=== PATIENT | female | born 1980 | race Caucasian/White ===

== ENCOUNTER 2019-03-06 21:44 | Emergency (ER) | payer SELFPAY ==
[~2019-03-06] VITALS: Ht 182.9 cm; Wt 108.9 kg
--- NOTE | 2019-03-06 22:43 | ED GU-Female ---
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 Today, her bleeding picked up significantly. She states that she is filling 1 pad an hour and passing large baseball size clots. She describes it as being bright red. Nursing Sepsis Screen: No Definite Risk Source: patient History of Present Illness Date Seen by Provider: Mar 06, 2019 Time Seen by Provider: 22:43 Initial Comments 38-year-old female presenting with severe pelvic pain and irregular vaginal bleeding. She started her period 3 days ago and has had increasing vaginal bleeding with heavy menstrual bleeding and clots. She also has pain that is started download primarily on the left side. It is sharp pain. It feels more severe than her regular menstrual cycle cramps. She also had her period started approximately a week to week and half early this time. She states that her January period was visual manager than usual. She has had bleeding to the point that she' s used an entire box of heavy duty tampons and box of pads in the last 24-36 hours. She denies having any chills but states she has had fever off and on. She has been getting dizzy and lightheaded especially when she stands up. She denies any change in her bowels or bladder. She has had nausea when she has severe pain. She denies having bleeding or clots like this previously. She has not had ovarian cysts or been told she had fibroids in the past. She has had normal pap smears. Her mother had to have a hysterectomy at an early age due to ovarian cysts and heavy bleeding. She has had prior C-sections and a tubal ligation. Allergies and Home Medications Allergies Coded Allergies: azithromycin (Verified Allergy, Unknown, 03/06/19) fexofenadine (Verified Allergy, Unknown, 03/06/19) Patient Home Medication List Home Medication List Reviewed: Yes Review of Systems Review of Systems Constitutional: see HPI EENTM: no symptoms reported Respiratory: no symptoms reported Cardiovascular: no symptoms reported Gastrointestinal: see HPI Genitourinary: see HPI Musculoskeletal: no symptoms reported Skin: no symptoms reported Psychiatric/Neurological: No Symptoms Reported Past Gnknakp-Objuot-Kmzxbn Hx Past Med/Social Hx: Reviewed Nursing Past Med/Soc Hx Patient Social History Alcohol Use: Occasionally Uses Recreational Drug Use: No Smoking Status: Never a Smoker 2nd Hand Smoke Exposure: No Recent Foreign Travel: No Contact w/Someone Who Travel: No Recent Infectious Disease Expo: No Recent Hopitalizations: No Physical Abuse: No Sexual Abuse: No Mistreated: No Fear: No Immunizations Up To Date Tetanus Booster (TDap): Unknown Date of Influenza Vaccine: Aug 10, 2018 Seasonal Allergies Seasonal Allergies: No Past Medical History Surgeries: Yes (Aneurysm repair in the neck) Section, Tubal Ligation Respiratory: No Cardiac: No Neurological: No : No Last 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 0oz. [id number]; BMI Method:Stated General Appearance: WD/WN, no apparent distress HEENT: pharynx normal Neck: non-tender, supple Cardiovascular: normal peripheral pulses, regular rate, rhythm Respiratory: chest non-tender, lungs clear, normal breath sounds, no respiratory distress, no accessory muscle use Gastrointestinal: normal bowel sounds, soft, no pulsatile mass, tenderness ( over suprapubic area in pelvis as well as LLQ and RLQ. Pain worse in LLQ area) Rectal: deferred Pelvic: normal external exam, tender adnexa (left greater than right. ), vaginal bleeding (bright red blood with mucus present at the os and vaginal vault but no active bleeding coming from the os during the exam. ) Back: normal inspection, no CVA tenderness, no vertebral tenderness Extremities: normal range of motion, non-tender, normal inspection, normal capillary refill Neurologic/Psychiatric: alert, normal mood/affect, oriented x 3 Skin: normal color, warm/dry Progress/Results/Core Measures Suspected Sepsis Recent Fever Within 48 Hours: No Infection Criteria Present: None New/Unexplained Altered Menta: No Sepsis Screen: No Definite Risk SIRS Temperature:98.8 Pulse: 87 Respiratory Rate: 22 Laboratory Tests 03/06/19 00:05: White Blood Count 6.3 Blood Pressure 107 /71 Mean: 83 Laboratory Tests 03/06/19 00:05: Creatinine 0.84, Platelet Count 219, Total Bilirubin 0.2 Results/Orders Lab Results Laboratory Tests Test 03/06/19 00:05 Range/Units White Blood Count 6.3 4.3-11.0 10^3/uL Red Blood Count 4.19 L 4.35-5.85 10^6/uL Hemoglobin 10.3 L 11.5-16.0 G/DL Hematocrit 34 L 35-52 % Mean Corpuscular Volume 81 80-99 FL Mean Corpuscular Hemoglobin 25 25-34 PG Mean Corpuscular Hemoglobin Concent 30 L 32-36 G/DL Red Cell Distribution Width 15.1 H 10.0-14.5 % Platelet Count 219 130-400 10^3/uL Mean Platelet Volume 10.7 H 7.4-10.4 FL Neutrophils (%) (Auto) 70 42-75 % Lymphocytes (%) (Auto) 19 12-44 % Monocytes (%) (Auto) 7 0-12 % Eosinophils (%) (Auto) 3 0-10 % Basophils (%) (Auto) 1 0-10 % Neutrophils # (Auto) 4.4 1.8-7.8 X 10^3 Lymphocytes # (Auto) 1.2 1.0-4.0 X 10^3 Monocytes # (Auto) 0.5 0.0-1.0 X 10^3 Eosinophils # (Auto) 0.2 0.0-0.3 10^3/uL Basophils # (Auto) 0.0 0.0-0.1 10^3/uL Urine Color YELLOW Urine Clarity SLIGHTLY CLOUDY Urine pH 6.5 5-9 Urine Specific Madelia 1.025 H 1.016-1.022 Urine Protein NEGATIVE NEGATIVE Urine Glucose (UA) NEGATIVE NEGATIVE Urine Ketones NEGATIVE NEGATIVE Urine Nitrite NEGATIVE NEGATIVE Urine Bilirubin NEGATIVE NEGATIVE Urine Urobilinogen 0.2 NORMAL MG/DL Urine Leukocyte Esterase NEGATIVE NEGATIVE Urine RBC (Auto) 2+ H NEGATIVE Urine RBC 0-2 /HPF Urine WBC 0-2 /HPF Urine Squamous Epithelial Cells 0-2 /HPF Urine Crystals NONE /LPF Urine Bacteria FEW H /HPF Urine Casts NONE /LPF Urine Mucus SMALL H /LPF Urine Culture Indicated NO Sodium Level 139 135-145 MMOL/L Potassium Level 4.3 3.6-5.0 MMOL/L Chloride Level 101 98-107 MMOL/L Carbon Dioxide Level 23 21-32 MMOL/L Anion Gap 5-14 MMOL/L Blood Urea Nitrogen 18 7-18 MG/DL Creatinine 0.84 0.60-1.30 MG/DL Estimat Glomerular Filtration Rate > 60 BUN/Creatinine Ratio 21 Glucose Level 102 70-105 MG/DL Calcium Level 8.9 8.5-10.1 MG/DL Corrected Calcium 8.8 8.5-10.1 MG/DL Total Bilirubin 0.2 0.1-1.0 MG/DL Aspartate Amino Transf (AST/SGOT) 15 5-34 U/L Alanine Aminotransferase (ALT/SGPT) 14 0-55 U/L Alkaline Phosphatase 61 40-136 U/L Total Protein 7.4 6.4-8.2 GM/DL Albumin 4.1 3.2-4.5 GM/DL Lipase 18 8-78 U/L Human Chorionic Gonadotropin, Quant < 5 <5 MIU/ML My Orders Orders - PINKY PHILLIPS MD Comprehensive Metabolic Panel (03/06/19 23:07) Lipase (03/06/19 23:07) Ua Culture If Indicated (03/06/19 23:07) Ed Iv/Invasive Line Start (03/06/19 23:07) Cbc With Automated Diff (03/06/19 23:07) Hcg,Quantitative (03/06/19 23:07) Ketorolac Injection (Toradol Injection) (03/07/19 00:00) Ct Abdomen/Pelvis Wo (03/07/19 00:00) Rx-Hydrocodone/Apap 5-325 Mg (Rx-Vicodin (03/07/19 01:45) Medications Given in ED Current Medications Medications Dose Ordered Sig/Eddie Route Start Time Stop Time Status Last Admin Dose Admin Ketorolac Tromethamine 60 mg ONCE ONCE IM 03/07/19 00:00 03/07/19 00:01 DC 03/06/19 23:51 60 MG Vital Signs/I&O 03/06/19 03/07/19 21:50 01:47 Temp 98.8 98.1 Pulse 87 71 Resp 22 18 B/P (MAP) 107/71 (83) 120/60 (80) Pulse Ox 100 93 O2 Delivery Room Air Room Air Capillary Refill : Less Than 3 Seconds Blood Pressure Mean: 83 Progress Note #1: Time: 23:00 Progress Note check labs and CT scan of abdomen/pelvis to evaluate for pathology causing her pain in pelvis. Progress Note #2: Progress Note Unable to obtain IV access for fluids or CT scan with contrast. With her labs she did have normal CBC with chronic anemia and chemistry did not show any acute significant abnormality. She had no acute abnormality on CT scan to indicate her pain and heavy vaginal bleeding. Advised to check with Dr. Hensley on Friday or if worsens on Friday to go to [place] for ultrasound to further evaluate her uterus and ovaries. Sent with 4 pack of Hydrocodone for severe pain for home. Continue with Naproxen or Ibuprofen for pain/inflammation in the meantime. Diagnostic Imaging Diagonstic Imaging: CT Plain Films/CT/US/NM/MRI: abdomen, pelvis Reviewed: [facility] Impression Primary Impression: Episode of heavy vaginal bleeding Additional Impressions: Left adnexal tenderness Acute pelvic pain, female Disposition: HOME, SELF-CARE Condition: Stable Departure-Patient Inst. Decision time for Depature: 01:30 Referrals: NO,LOCAL PHYSICIAN (PCP/Family) Primary Care Physician Patient Instructions: Acute Pelvic Pain (DC), IRREGULAR VAGINAL BLEEDING Add. Discharge Instructions: Check with Dr. Hensley on Friday if having continued symptoms Return to the ER or be seen in [place] if having worsening symptoms before you get in with Dr. Hensley so you could have an ultrasound and further evaluation. Try Naproxen for pain. For severe pain you could try the Hydrocodone 1 pill every 6 hours as needed. All discharge instructions reviewed with patient and/or family. Voiced understanding. PINKY PHILLIPS MD Mar 06, 2019 22:43
[2019-03-06] MEDS ORDERED: KETOROLAC 30 MG/ML VIAL IVP ONE (23:15)
[2019-03-06] MEDS ORDERED: NS IV 1000 ML 1,000 ML IV SCH (23:15)
[2019-03-06] MEDS ORDERED: CATHETER FLUSH 10 ML SYR IV PRN (23:30)
[2019-03-06] MEDS ORDERED: HOLD METFORMIN - RECEIVED CONTRAST 20 ML VIAL IV SCH (23:30)
[2019-03-06] MEDS ORDERED: NS 50 ML (IVPB) BAG IV ONE (23:30)
[2019-03-06] MEDS ORDERED: IOHEXOL 350 MG/ML 100 ML (OMNIPAQUE 350) VIAL IV ONE (23:30)
[2019-03-07] MEDS ORDERED: KETOROLAC 60 MG/2 ML VIAL IM ONE
[2019-03-07 00:25] LABS: WHITE BLOOD COUNT 6.3 10^3/uL (4.3-11.0)
[2019-03-07 00:26] LABS: BASOPHILS % (AUTO) 1 % (0-10); EOSINOPHILS # (AUTO) 0.2 10^3/uL (0.0-0.3); EOSINOPHILS % (AUTO) 3 % (0-10); HEMATOCRIT 34 % (35-52); HEMOGLOBIN 10.3 G/DL (11.5-16.0); LYMPHOCYTES # (AUTO) 1.2 X 10^3 (1.0-4.0); LYMPHOCYTES % (AUTO) 19 % (12-44); MEAN CORPUSCULAR HEMOGLOBIN 25 PG (25-34); MEAN CORPUSCULAR HGB CONC 30 G/DL (32-36); MEAN CORPUSCULAR VOLUME 81 FL (80-99); MEAN PLATELET VOLUME 10.7 FL (7.4-10.4); MONOCYTES # (AUTO) 0.5 X 10^3 (0.0-1.0); MONOCYTES % (AUTO) 7 % (0-12); NEUTROPHILS # (AUTO) 4.4 X 10^3 (1.8-7.8); NEUTROPHILS % (AUTO) 70 % (42-75); PLATELET COUNT 219 10^3/uL (130-400); RED CELL DISTRIBUTION WIDTH 15.1 % (10.0-14.5)
[2019-03-07 00:28] LABS: CLARITY,URINE SLIGHTLY CLOUDY; COLOR,URINE YELLOW
[2019-03-07 00:29] LABS: BILIRUBIN,URINE NEGATIVE (NEGATIVE); GLUCOSE, URINE (UA) NEGATIVE (NEGATIVE); KETONES,URINE NEGATIVE (NEGATIVE); LEUKOCYTE ESTERASE ,URINE NEGATIVE (NEGATIVE); NITRITE,URINE NEGATIVE (NEGATIVE); PH,URINE 6.5 (5-9); PROTEIN,URINE NEGATIVE (NEGATIVE); UROBILINOGEN,URINE 0.2 MG/DL (NORMAL)
[2019-03-07 00:30] LABS: BACTERIA,URINE FEW /HPF; RBC,URINE 0-2 /HPF; SQUAMOUS EPITHELIAL CELL,UR 0-2 /HPF; WBC,URINE 0-2 /HPF
[2019-03-07 00:56] LABS: ALANINE AMINOTRANSFERASE 14 U/L (0-55); ALKALINE PHOSPHATASE 61 U/L (40-136); BILIRUBIN,TOTAL 0.2 MG/DL (0.1-1.0); BUN/CREATININE RATIO 21; CALCIUM 8.9 MG/DL (8.5-10.1); CARBON DIOXIDE 23 MMOL/L (21-32); CHLORIDE 101 MMOL/L (98-107); CREATININE SERUM 0.84 MG/DL (0.60-1.30); GFR ESTIMATED > 60; GLUCOSE 102 MG/DL (70-105); POTASSIUM 4.3 MMOL/L (3.6-5.0); SODIUM 139 MMOL/L (135-145)
[2019-03-07 00:57] LABS: ALBUMIN 4.1 GM/DL (3.2-4.5); TOTAL PROTEIN 7.4 GM/DL (6.4-8.2)
[2019-03-07 01:11] LABS: LIPASE 18 U/L (8-78)
[2019-03-07] MEDS ORDERED: RX-HYDROCODONE/APAP 5/325 MG #4 TAB PK PO PRN (01:45)
[2019-03-07 01:47] VITALS: BP 120/60
--- NOTE | 2019-03-07 08:04 | Diagnostic Imaging Report ---
PROCEDURE: CT abdomen and pelvis without contrast. TECHNIQUE: Multiple contiguous axial images were obtained through the abdomen and pelvis without the use of intravenous contrast. Auto Exposure Controls were utilized during the CT exam to meet ALARA standards for radiation dose reduction. INDICATION: Pain, bleeding FINDINGS: The gallbladder is contracted. No visualized stone. There is no bile duct dilatation. The unopacified liver unremarkable. Spleen unremarkable. Low-density 1 cm nodule left adrenal isthmus is believed adenoma. No radiodense kidney stones. There is no hydronephrosis. There is no appendicitis or diverticulitis. The uterus, adnexa and urinary bladder had an unremarkable appearance. There is no ascites, abscess, hematoma or other fluid collection. The osseous structures and lung bases nonacute. IMPRESSION: No acute appearing abnormality. Dictated by: Dictated on workstation # [id number]
== END 2019-03-07 01:47 | disposition home or self-care (01) ==
LOC: ER FS 21:49
DX: N93.9 Abnormal uterine and vaginal bleeding, unspecified (principal); N94.89 Other specified conditions associated with female genital organs and menstrual cycle; Z98.890 Other specified postprocedural states; Z88.1 Allergy status to other antibiotic agents; Z88.8 Allergy status to other drugs, medicaments and biological substances; Z98.51 Tubal ligation status
CPT/HCPCS: 36415; 74176; 80053; 81000; 83690; 84702; 85025

== ENCOUNTER 2019-09-26 03:15 | Observation (INO) | payer SELFPAY ==
[~2019-09-26] VITALS: Ht 180.3 cm; Wt 122.7 kg
[2019-09-26] MEDS ORDERED: PANTOPRAZOLE 40 MG (PROTONIX) VIAL IV STA (03:27)
[2019-09-26] MEDS ORDERED: ASPIRIN 81 MG CHEW (CHILDREN'S ASA) PO ONE (03:30)
--- NOTE | 2019-09-26 03:35 | ED Chest Pain ---
General Chief Complaint: Chest Pain Stated Complaint: CHEST PAIN Source: patient History of Present Illness Date Seen by Provider: Sep 26, 2019 Time Seen by Provider: 03:15 Initial Comments 39-year-old female presenting with complaints of left-sided chest pain and arm numbness. She states that she woke up at 2 AM with a feeling of indigestion and then had sharp stabbing pain radiating to her left shoulder. That has been constant and proceeded to cause numbness going on the way down her left arm. She has family history of heart disease in both sides of her family. She has been having indigestion and heartburn symptoms at that height and level for the last 2 weeks. She has been using more Tums to help control the symptoms. She was also concerned that she might have gallbladder disease because she has been getting sick when she eats fatty foods. She had a cheeseburger with dinner last night at was doing okay until she woke up at 2 AM. Since the pain was going into her shoulder and caused the numbness in her arm she was worried that she might be having some problem with her heart so she came to the emergency department to be evaluated. The pain woke her up from sleep. She did take 325 mg of aspirin at 2:30 AM Allergies and Home Medications Allergies Coded Allergies: azithromycin (Verified Allergy, Unknown, 03/06/19) fexofenadine (Verified Allergy, Unknown, 03/06/19) Patient Home Medication List Home Medication List Reviewed: Yes Review of Systems Review of Systems Constitutional: No chills, No fever EENTM: No Symptoms Reported Respiratory: Cough (she has been coughing over the last week since her children brought home an upper respiratory illness. It is a dry nonproductive cough) Cardiovascular: Chest Pain (stabbing left-sided chest pain radiating to her left shoulder) Gastrointestinal: Abdominal Pain (indigestion and heartburn symptoms in her epigastric area); Denies Nausea, Denies Vomiting Genitourinary: No Symptoms Reported Musculoskeletal: No no symptoms reported Skin: No no symptoms reported Psychiatric/Neurological: Anxiety, Numbness (and left arm numbness since this pain started and woke her up at 2 AM) Endocrine: No Symptoms Reported Hematologic/Lymphatic: No Symptoms Reported Past Khcepio-Ozzqeb-Xpivmz Hx Past Med/Social Hx: Reviewed Nursing Past Med/Soc Hx Patient Social History 2nd Hand Smoke Exposure: No Recent Foreign Travel: No Recent Hopitalizations: No Immunizations Up To Date Tetanus Booster (TDap): Unknown Date of Influenza Vaccine: Aug 10, 2018 Seasonal Allergies Seasonal Allergies: No Past Medical History Surgeries: Yes (Aneurysm repair in the neck) Section, Tubal Ligation Respiratory: No Cardiac: No 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 0oz. 108.464514qg; BMI Method:Stated General Appearance: No Apparent Distress, WD/WN, Obese HEENT: PERRL/EOMI, Pharynx Normal Neck: Full Range of Motion, Normal Inspection, Non Tender, Supple; No Carotid Bruit Respiratory: Chest Non Tender, Lungs Clear, Normal Breath Sounds, No Accessory Muscle Use, No Respiratory Distress Cardiovascular: Regular Rate, Rhythm, Normal Peripheral Pulses Gastrointestinal: No Pulsatile Mass, Non Tender, Soft Extremity: Normal Capillary Refill, Non Tender, No Calf Tenderness, No Pedal Edema Neurologic/Psychiatric: Alert, Oriented x3, No Motor/Sensory Deficits Skin: Normal Color, Warm/Dry Progress/Results/Core Measures Results/Orders Lab Results Laboratory Tests Test 09/26/19 03:32 Range/Units White Blood Count 10.2 4.3-11.0 10^3/uL Red Blood Count 4.25 L 4.35-5.85 10^6/uL Hemoglobin 10.2 L 11.5-16.0 G/DL Hematocrit 34 L 35-52 % Mean Corpuscular Volume 80 80-99 FL Mean Corpuscular Hemoglobin 24 L 25-34 PG Mean Corpuscular Hemoglobin Concent 30 L 32-36 G/DL Red Cell Distribution Width 15.4 H 10.0-14.5 % Platelet Count 239 130-400 10^3/uL Mean Platelet Volume 10.7 H 7.4-10.4 FL Neutrophils (%) (Auto) 74 42-75 % Lymphocytes (%) (Auto) 18 12-44 % Monocytes (%) (Auto) 6 0-12 % Eosinophils (%) (Auto) 2 0-10 % Basophils (%) (Auto) 1 0-10 % Neutrophils # (Auto) 7.5 1.8-7.8 X 10^3 Lymphocytes # (Auto) 1.9 1.0-4.0 X 10^3 Monocytes # (Auto) 0.6 0.0-1.0 X 10^3 Eosinophils # (Auto) 0.2 0.0-0.3 10^3/uL Basophils # (Auto) 0.1 0.0-0.1 10^3/uL Prothrombin Time 12.3 12.2-14.7 SEC INR Comment 0.9 0.8-1.4 Activated Partial Thromboplast Time 28 24-35 SEC Sodium Level 141 135-145 MMOL/L Potassium Level 4.3 3.6-5.0 MMOL/L Chloride Level 102 98-107 MMOL/L Carbon Dioxide Level 27 21-32 MMOL/L Anion Gap 12 5-14 MMOL/L Blood Urea Nitrogen 16 7-18 MG/DL Creatinine 0.87 0.60-1.30 MG/DL Estimat Glomerular Filtration Rate > 60 BUN/Creatinine Ratio 18 Glucose Level 114 H 70-105 MG/DL Calcium Level 9.3 8.5-10.1 MG/DL Corrected Calcium 9.2 8.5-10.1 MG/DL Magnesium Level 2.0 1.6-2.4 MG/DL Total Bilirubin < 0.2 0.1-1.0 MG/DL Aspartate Amino Transf (AST/SGOT) 19 5-34 U/L Alanine Aminotransferase (ALT/SGPT) 20 0-55 U/L Alkaline Phosphatase 58 40-136 U/L Troponin I < 0.30 <0.30 NG/ML Pro-B-Type Natriuretic Peptide < 75.0 <75.0 PG/ML Total Protein 7.6 6.4-8.2 GM/DL Albumin 4.1 3.2-4.5 GM/DL Lipase 17 8-78 U/L My Orders Orders - PINKY PHILLIPS MD Cbc With Automated Diff (09/26/19 03:26) Magnesium (09/26/19 03:26) Ekg Tracing (09/26/19 03:26) Comprehensive Metabolic Panel (09/26/19 03:26) Protime With Inr (09/26/19 03:26) Partial Thromboplastin Time (09/26/19 03:26) O2 (09/26/19 03:26) Monitor-Rhythm Ecg Trace Only (09/26/19 03:26) Aspirin Chewable Tablet (Baby Aspirin Ch (09/26/19 03:30) Ed Iv/Invasive Line Start (09/26/19 03:26) Lipase (09/26/19 03:26) Troponin I Fs (09/26/19 03:26) Probnp Fs (09/26/19 03:26) Chest Pa/Lat (2 View) (09/26/19 03:26) Pantoprazole Injection (Protonix Injecti (09/26/19 03:27) Enoxaparin Injection (Lovenox Injection) (09/26/19 04:38) Fentanyl Injection (Sublimaze Injection (09/26/19 04:38) Vital Signs/I&O 09/26/19 09/26/19 09/26/19 09/26/19 03:18 03:18 03:32 04:54 Temp 36.9 36.8 Pulse 84 67 Resp 14 17 B/P (MAP) 135/67 (89) 124/64 Pulse Ox 99 99 100 O2 Delivery Nasal Cannula Room Air Room Air Nasal Cannula O2 Flow Rate 2.0 2.00 2.00 Progress Progress Note #1: Progress Note Obtain basic labs as well as EKG and chest x-ray. For her symptoms will try Protonix. Ordered aspirin but then found out that she had already taken at home. Progress Note #2: Time: 04:03 Progress Note Labs show no acute significant abnormality on CBC. She has normal WBC count and Hgb shows chronic mild anemia at 10.2. Normal Coags. CXR on my review of her 2 view CXR does not show any acute infiltrate, effusion or cardiomegaly. Chemistry and cardiac enzymes still pending and waiting to see if her symptoms improve any with the Protonix treatment for possible GERD/Esophagitis pain. Progress Note #3: Time: 04:17 Progress Note Chemistry and cardiac enzymes do not show any specific reason for her pain and symptoms. Lipase is negative and initial Troponin is negative as is her ProBNP. On recheck of pt and review of results she still reports numbness in left arm and having epigastric pain that comes and goes. This still could be an anginal equivalent in a female. She denies nausea or sweating. Will give Lovenox and try fentanyl for epigastric pain. Check with Dr. Frausto with [facility] since the patient sees Dr. Nortno in the clinic about observation admit to rule out cardiac source for her pain. As she has a strong family hx and I do not have enzymes 6 hours out from her onset of pain I can not technically rule out cardiac source of her pain. Progress Note #4: Time: 04:[address] Frausto accepted the pt for admit to get serial enzymes. will use the chest pain order set. Initial ECG Impression Date: Sep 26, 2019 Initial ECG Impression Time: 03:18 Initial ECG Rate: 71 Initial ECG Rhythm: Normal Sinus Initial ECG Comparisson: No Previous ECG Available Comment Normal sinus rhythm with heart rate of 71 bpm. DE interval 169 ms. QT interval 357 ms and a QT corrected interval 388 ms. There is no acute ST elevation or ischemic changes. There is no prior tracing available for comparison. Diagnostic Imaging Diagonstic Imaging: Xray Plain Films/CT/US/NM/MRI: chest Comments On my review of her 2 view chest xray she has no acute infiltrate or effusion. No cardiomegaly. Reviewed: Reviewed by Me Departure Communication (Admissions) Time/Spoke to Admitting Phy: 04:[address] Frausto for [facility] and accepted the pt for admit for observation for serial enzymes for chest pain and arm numbness. Impression Primary Impression: Chest pain Qualified Codes: R07.9 - Chest pain, unspecified Additional Impression: Numbness and tingling in left arm Disposition: 09 ADMITTED INPATIENT Condition: Stable Admissions Decision to Admit Reason: Admit from ER (General) Decision to Admit/Date: Sep 26, 2019 Time/Decision to Admit Time: 04:34 Departure-Patient Inst. Referrals: NO,LOCAL PHYSICIAN (PCP/Family) Primary Care Physician Work/School Note: Family Work Note Patient Received Medical Care In the Emergency Department On: Sep 26, 2019 Patient Will Be Able to Return to Work/School On: Sep 27, 2019 Patient Restrictions: Please excuse her as he was with her in the ER. PINKY PHILLIPS MD Sep 26, 2019 03:35 POS
[2019-09-26 03:39] LABS: HEMATOCRIT 34 % (35-52); HEMOGLOBIN 10.2 G/DL (11.5-16.0); MEAN CORPUSCULAR HEMOGLOBIN 24 PG (25-34); MEAN CORPUSCULAR HGB CONC 30 G/DL (32-36); MEAN CORPUSCULAR VOLUME 80 FL (80-99); MEAN PLATELET VOLUME 10.7 FL (7.4-10.4); PLATELET COUNT 239 10^3/uL (130-400); RED CELL DISTRIBUTION WIDTH 15.4 % (10.0-14.5); WHITE BLOOD COUNT 10.2 10^3/uL (4.3-11.0)
[2019-09-26 03:40] LABS: BASOPHILS # (AUTO) 0.1 10^3/uL (0.0-0.1); BASOPHILS % (AUTO) 1 % (0-10); EOSINOPHILS # (AUTO) 0.2 10^3/uL (0.0-0.3); EOSINOPHILS % (AUTO) 2 % (0-10); LYMPHOCYTES # (AUTO) 1.9 X 10^3 (1.0-4.0); LYMPHOCYTES % (AUTO) 18 % (12-44); MONOCYTES # (AUTO) 0.6 X 10^3 (0.0-1.0); MONOCYTES % (AUTO) 6 % (0-12); NEUTROPHILS # (AUTO) 7.5 X 10^3 (1.8-7.8); NEUTROPHILS % (AUTO) 74 % (42-75)
[2019-09-26 03:52] LABS: INR 0.9 (0.8-1.4); PROTHROMBIN TIME PATIENT 12.3 SEC (12.2-14.7)
[2019-09-26 04:13] LABS: ALANINE AMINOTRANSFERASE 20 U/L (0-55); ALBUMIN 4.1 GM/DL (3.2-4.5); ALKALINE PHOSPHATASE 58 U/L (40-136); BILIRUBIN,TOTAL < 0.2 MG/DL (0.1-1.0); BUN/CREATININE RATIO 18; CALCIUM 9.3 MG/DL (8.5-10.1); CARBON DIOXIDE 27 MMOL/L (21-32); CHLORIDE 102 MMOL/L (98-107); CREATININE SERUM 0.87 MG/DL (0.60-1.30); GFR ESTIMATED > 60; GLUCOSE 114 MG/DL (70-105); POTASSIUM 4.3 MMOL/L (3.6-5.0); SODIUM 141 MMOL/L (135-145); TOTAL PROTEIN 7.6 GM/DL (6.4-8.2)
[2019-09-26 04:14] LABS: LIPASE 17 U/L (8-78)
[2019-09-26] MEDS ORDERED: fentaNYL INJECTION 100 MCG/2 ML AMP IVP STA (04:38)
[2019-09-26] MEDS ORDERED: ENOXAPARIN 60 MG/0.6 ML (LOVENOX) SYR SC STA (04:38)
--- NOTE | 2019-09-26 05:40 | Diagnostic Imaging Report ---
INDICATION: Chest pain. COMPARISON: None FINDINGS: Frontal and lateral views of the chest demonstrate normal heart size and pulmonary vascularity. The lungs are clear. There are no signs of infiltrate, pleural effusions or pneumothoraces. The visualized osseous structures show no acute abnormalities. IMPRESSION: 1. No acute process. No signs of infiltrates, effusions or pneumothoraces. Dictated by: Dictated on workstation # [id number]
[2019-09-26 06:00] VITALS: BP 124/64
--- NOTE | 2019-09-26 06:00 | NUR ---
ARIAN MORRIS admitted to room 431-1, with an admitting diagnosis of CHEST PAIN AND LEFT ARM NUMBNESS, on 09/26/19 from [facility], accompanied by EMS STAFF.ARIAN MORRIS introduced to surroundings, call light, bed controls, phone, TV, temperature control, lights, meal times, smoking policy, visitor policy, side rail policy, bathrooms and showers. Patient Rights given to patient in the handbook. ARIAN MORRIS verbalizes understanding that [facility] is not responsible for the loss or damage to any personal effects or valuables that are kept in the patients posession during their hospitalization.
[2019-09-26] MEDS ORDERED: NS IV 1000 ML 1,000 ML ONE (06:23)
[2019-09-26] MEDS: NS IV 1000 ML 1,000 ML IV SCH ×2 (06:54→17:04)
[2019-09-26] MEDS ORDERED: NITROGLYCERIN 0.4 MG SL TABS BTL 25'S SL PRN (07:00)
[2019-09-26] MEDS ORDERED: morphine INJ 4 MG/ML 1 ML (VIAL/SYRINGE) IV PRN (07:00)
[2019-09-26] MEDS ORDERED: ONDANSETRON 4 MG/2 ML (SDV) Z0FRAN IV PRN (07:00)
[2019-09-26 07:32] LABS: CHOLESTEROL 173 MG/DL (< 200); HDL CHOLESTEROL 63 MG/DL (40-60); TRIGLYCERIDES 72 MG/DL (<150); VLDL CHOLESTEROL 14 MG/DL (5-40)
[2019-09-26 08:00] VITALS: BP 122/74
[2019-09-26] MEDS ORDERED: FAMO-119 PO (11:54)
[2019-09-26 12:00] VITALS: BP 117/66
--- NOTE | 2019-09-26 12:00 | Short Stay Summary-Hospitalist ---
History of Present Illness HPI/Chief Complaint The patient is a 39-year-old white female with known history of cardiovascular disease who woke from sleep with chest pain radiating into her left shoulder. She reports that she had indigestion symptoms over the past 2 weeks aggravated by fatty food but not activity for which she had not gotten much benefit from Gaviscon. I was told by the emergency room physician and that there was a strong history for coronary disease in her family. Upon her arrival to the emergency room her EKG was unremarkable and a troponin level done about 2 hours after the onset of her discomfort was normal. Her only true risk factor for coronary disease is the fact that she is overweight. Her mother is alive in her mid 60s and has a history that sounds like a tachyarrhythmia but no history for vascular disease. Her father is 68 and in her words as healthy as a horse. She had one grandfather who smoked and ate poorly who is still living in his late 70s but did apparently have a heart attack in his 40s and is had some stents placed in the last several years. By the time she arrived in the emergency room she was not having chest pain but did report left shoulder pain and numbness radiating into her left hand. The discomfort also radiates up into the back of her neck on the left side. Upon my arrival to evaluate her this morning she reported numbness without significant discomfort. Her second troponin level was normal and she has low risk lipid panel with an LDL of 101 and HDL of 63 and total cholesterol of 173 with a triglyceride level is under 100. Date Seen 09/26/19 Time Seen by a Provider: 08:00 Attending Physician Yunier Frausto MD PCP Chun Norton MD Referring Physician Date of Admission Sep 26, 2019 at 5:03 am Home Medications & Allergies Home Medications Reviewed patient Home Medication Reconciliation performed by pharmacy medication reconciliations injection mold tooling technician and/or nursing. Patients Allergies have been reviewed. Allergies Allergies Coded Allergies azithromycin (Verified Allergy, Unknown, 03/06/19) fexofenadine (Verified Allergy, Unknown, 03/06/19) Past Xcalait-Gmwpyo-Ncethr Hx Past Med/Social Hx: Reviewed Nursing Past Med/Soc Hx, Reviewed and Corrections made Patient Social History 2nd Hand Smoke Exposure: No Recent Foreign Travel: No Contact w/other who traveled: No Recent Hopitalizations: No Recent Infectious Disease Expo: No Immunizations Up To Date Tetanus Booster (TDap): Unknown Date of Influenza Vaccine: Aug 10, 2018 Seasonal Allergies Seasonal Allergies: No Past Medical History Surgeries: Section, Tubal Ligation Tubal Ligation History of Blood Disorders: No Review of Systems Constitutional: see HPI Physical Exam Physical Exam Vital Signs Vital Signs - First Documented 09/26/19 03:18 Temp 36.9 Pulse 84 Resp 14 B/P (MAP) 135/67 (89) Pulse Ox 99 O2 Delivery Nasal Cannula O2 Flow Rate 2.0 Capillary Refill : Less Than 3 Seconds Height, Weight, BMI Height: 6'0" Weight: 240lbs. 0oz. [id number]; 37.74 BMI Method:Stated General Appearance: No Apparent Distress, WD/WN, Obese HEENT: PERRL/EOMI, Pharynx Normal Neck: Full Range of Motion, Normal Inspection, Non Tender, Supple; No Carotid Bruit Respiratory: Chest Non Tender, Lungs Clear, Normal Breath Sounds, No Accessory Muscle Use, No Respiratory Distress Cardiovascular: Regular Rate, Rhythm, No Edema, No Gallop, No JVD, No Murmur, Normal Peripheral Pulses Gastrointestinal: Normal Bowel Sounds, No Pulsatile Mass, Soft, Other (Orozco sign is likely positive when she takes a deep breath and with palpation of the right upper quadrant she does note some pain but has no guarding with no pain noted on normal inspiration.) Extremity: Normal Capillary Refill, Non Tender, No Calf Tenderness, No Pedal Edema Neurologic/Psychiatric: Alert, Oriented x3, No Motor/Sensory Deficits Skin: Normal Color, Warm/Dry Results Results/Procedures Labs Laboratory Tests 09/26/19 03:32 Patient resulted labs reviewed. Short Stay Diagnosis Discharge Diagnosis-Short Stay Admission Diagnosis Noncardiac chest pain acute coronary syndrome ruled out. Final Discharge Diagnosis Same as admission diagnosis Conclusion Plan Advised the patient try short course Pepcid 20 mg twice a day and even more importantly adhere to lower fat lower diet with portion controlling especially carbohydrates as her symptoms may be secondary to cholecystitis. If they're getting worse she will need to see her primary care provider and look into workup for cholecystitis. We discussed the possibility of cervical radiculopat hy for left-sided shoulder pain and left upper extremity numbness which was better at the time of discharge with no evidence for gross or fine motor control abnormality reported by the patient last night and with no evidence on this morning's physical examination. If getting worse she will need follow-up for this as well. Clinical Quality Measures AMI/AHF: ASA po Prior to arrival: Yes (TAKEN AROUND 0230 ) DVT/VTE Risk/Contraindication: Risk Factor Score Per Nursin RFS Level Per Nursing on Admit: 1=Low/No VTE PPX Copy Copies To 1: CHUN NORTON MD, MARK D MD Sep 26, 2019 12:00 pm POS
[2019-09-26 19:18] VITALS: BP 117/66
--- NOTE | 2019-09-27 08:13 | NUR ---
Received dietary consult for MST score. Note pt has been discharged at this time. Elizabeth Cole, MS, RD, LD
[2019-09-27] MEDS ORDERED: ASPIRIN E.C. 81 MG (ECOTRIN) TAB PO SCH (09:00)
== END 2019-09-26 15:56 | disposition home or self-care (01) ==
LOC: EDUNIT# 03:15 → ER FS 03:17 → 4TH 05:03 → UNDOADMOB 05:03 → 4TH 06:00 → UNDODISOB 19:22
PROVIDERS: ADMIT Internal Medicine; ATTEND Internal Medicine
DX: R07.9 Chest pain, unspecified (principal); Z88.1 Allergy status to other antibiotic agents; Z88.8 Allergy status to other drugs, medicaments and biological substances
CPT/HCPCS: 36415; 71046; 80053; 80061; 83690; 83735; 83880; 84484; 85025; 85610; 85730; 93005; 93041; 99211; G0378

== ENCOUNTER 2019-10-12 11:01 | Emergency (ER) | payer SELFPAY ==
[~2019-10-12] VITALS: Ht 180.3 cm; Wt 128.6 kg
[~2019-10-12 11:01] MED LIST: FAMO-119 PO
[2019-10-12 12:01] LABS: BASOPHILS % (AUTO) 0 % (0-10); EOSINOPHILS # (AUTO) 0.1 10^3/uL (0.0-0.3); EOSINOPHILS % (AUTO) 2 % (0-10); HEMATOCRIT 34 % (35-52); HEMOGLOBIN 10.3 G/DL (11.5-16.0); LYMPHOCYTES # (AUTO) 1.6 X 10^3 (1.0-4.0); LYMPHOCYTES % (AUTO) 30 % (12-44); MEAN CORPUSCULAR HEMOGLOBIN 23 PG (25-34); MEAN CORPUSCULAR HGB CONC 30 G/DL (32-36); MEAN CORPUSCULAR VOLUME 78 FL (80-99); MEAN PLATELET VOLUME 10.5 FL (7.4-10.4); MONOCYTES # (AUTO) 0.3 X 10^3 (0.0-1.0); MONOCYTES % (AUTO) 5 % (0-12); NEUTROPHILS # (AUTO) 3.3 X 10^3 (1.8-7.8); NEUTROPHILS % (AUTO) 63 % (42-75); PLATELET COUNT 231 10^3/uL (130-400); RED CELL DISTRIBUTION WIDTH 15.5 % (10.0-14.5); WHITE BLOOD COUNT 5.3 10^3/uL (4.3-11.0)
--- NOTE | 2019-10-12 12:14 | ED GI ---
General Chief Complaint: Abdominal/GI Problems Stated Complaint: BACK PAIN Nursing Triage Note: [facility]. Pt c/o stabbing under R ribs, vomiting after meals, and white stools. Pt reports last meal at 1800 of salad and chicken. Sepsis Screen: No Definite Risk Source of Information: Patient Exam Limitations: No Limitations History of Present Illness Date Seen by Provider: Oct 12, 2019 Time Seen by Provider: 12:12 Initial Comments To ER with reports of right sided mid back pain, seems to originate in the right upper abdomen and radiates through to the back as a sharp stabbing pain, this is been constant since last night waxing and waning in intensity. She denies fevers or chills but does have light colored stools, nausea after eating. Timing/Duration: Intermittent Severity/Quality: Moderate Location: RUQ Radiation: No Radiation Activities at Onset: None Associated Symptoms: Denies Symptoms Allergies and Home Medications Allergies Coded Allergies: azithromycin (Verified Allergy, Unknown, 03/06/19) fexofenadine (Verified Allergy, Unknown, 03/06/19) Home Medications Famotidine 20 Mg Tablet, 20 MG PO BID Prescribed by: RUDDY KAY on 09/26/19 1154 Hydrocodone/Acetaminophen 1 Each Tablet, 1 TAB PO Q4-6HR Prescribed by: GRACIE ALAS on 10/12/19 1304 Ondansetron 4 Mg Tab.rapdis, 4 MG PO Q6H PRN for NAUSEA/VOMITING Prescribed by: GRACIE ALAS on 10/12/19 1304 Patient Home Medication List Home Medication List Reviewed: Yes Review of Systems Review of Systems Constitutional: see HPI EENTM: No Symptoms Reported Respiratory: No Symptoms Reported Cardiovascular: No Symptoms Reported Gastrointestinal: See HPI, Abdominal Pain Genitourinary: No Symptoms Reported Musculoskeletal: no symptoms reported Skin: no symptoms reported Psychiatric/Neurological: No Symptoms Reported Endocrine: No Symptoms Reported Hematologic/Lymphatic: No Symptoms Reported Past Izfhdnv-Emxfvf-Gutbmr Hx Patient Social History Alcohol Use: Denies Use Recreational Drug Use: No 2nd Hand Smoke Exposure: No Recent Foreign Travel: No Contact w/Someone Who Travel: No Recent Infectious Disease Expo: No Recent Hopitalizations: No Immunizations Up To Date Tetanus Booster (TDap): Unknown Date of Influenza Vaccine: Aug 10, 2018 Seasonal Allergies Seasonal Allergies: No Past Medical History Surgeries: Yes (Aneurysm repair in the neck) Section, Tubal Ligation Respiratory: No Cardiac: No Neurological: No ART CONSULTANT History: Tubal Ligation Genitourinary: No Gastrointestinal: No Musculoskeletal: No Endocrine: No HEENT: No Cancer: No Psychosocial: No Integumentary: No Blood Disorders: No Physical Exam Vital Signs Vital Signs - First Documented 10/12/19 11:45 Temp 36.9 Pulse 64 Resp 18 B/P (MAP) 124/89 (101) Pulse Ox 100 O2 Delivery Room Air Capillary Refill : Less Than 3 Seconds Height/Weight/BMI Height: 6'0" Weight: 240lbs. 0oz. 108.802845wq; 39.00 BMI Method:Stated General Appearance: WD/WN, no apparent distress Respiratory: no respiratory distress, no accessory muscle use Cardiovascular: regular rate, rhythm Gastrointestinal: normal bowel sounds, soft, tenderness Extremities: normal range of motion, non-tender Neurologic/Psychiatric: alert, normal mood/affect, oriented x 3 Skin: normal color, warm/dry Progress/Results/Core Measures Results/Orders Lab Results Laboratory Tests Test 10/12/19 11:50 10/12/19 13:15 Range/Units White Blood Count 5.3 4.3-11.0 10^3/uL Red Blood Count 4.41 4.35-5.85 10^6/uL Hemoglobin 10.3 L 11.5-16.0 G/DL Hematocrit 34 L 35-52 % Mean Corpuscular Volume 78 L 80-99 FL Mean Corpuscular Hemoglobin 23 L 25-34 PG Mean Corpuscular Hemoglobin Concent 30 L 32-36 G/DL Red Cell Distribution Width 15.5 H 10.0-14.5 % Platelet Count 231 130-400 10^3/uL Mean Platelet Volume 10.5 H 7.4-10.4 FL Neutrophils (%) (Auto) 63 42-75 % Lymphocytes (%) (Auto) 30 12-44 % Monocytes (%) (Auto) 5 0-12 % Eosinophils (%) (Auto) 2 0-10 % Basophils (%) (Auto) 0 0-10 % Neutrophils # (Auto) 3.3 1.8-7.8 X 10^3 Lymphocytes # (Auto) 1.6 1.0-4.0 X 10^3 Monocytes # (Auto) 0.3 0.0-1.0 X 10^3 Eosinophils # (Auto) 0.1 0.0-0.3 10^3/uL Basophils # (Auto) 0.0 0.0-0.1 10^3/uL Sodium Level 141 135-145 MMOL/L Potassium Level 3.6 3.6-5.0 MMOL/L Chloride Level 107 98-107 MMOL/L Carbon Dioxide Level 24 21-32 MMOL/L Anion Gap 10 5-14 MMOL/L Blood Urea Nitrogen 11 7-18 MG/DL Creatinine 0.75 0.60-1.30 MG/DL Estimat Glomerular Filtration Rate > 60 BUN/Creatinine Ratio 15 Glucose Level 87 70-105 MG/DL Calcium Level 8.5 8.5-10.1 MG/DL Corrected Calcium 8.4 L 8.5-10.1 MG/DL Total Bilirubin 0.2 0.1-1.0 MG/DL Aspartate Amino Transf (AST/SGOT) 36 H 5-34 U/L Alanine Aminotransferase (ALT/SGPT) 39 0-55 U/L Alkaline Phosphatase 60 40-136 U/L Total Protein 7.3 6.4-8.2 GM/DL Albumin 4.1 3.2-4.5 GM/DL Lipase 22 8-78 U/L Serum Test, Qualitative NEGATIVE NEGATIVE D-Dimer 0.96 H 0.00-0.49 UG/ML My Orders Orders - GRACIE ALAS APRN Cbc With Automated Diff (10/12/19 11:42) Comprehensive Metabolic Panel (10/12/19 11:42) Lipase (10/12/19 11:42) Ed Iv/Invasive Line Start (10/12/19 11:42) Hcg,Qualitative Serum (10/12/19 11:42) Us Gallbladder [id number] (10/12/19 11:48) Ketorolac Injection (Toradol Injection) (10/12/19 12:15) Lidocaine 2% Viscous 15 Ml (Xylocaine Vi (10/12/19 12:45) Antacid Suspension (Mylanta Suspension (10/12/19 12:45) Fibrin Degradation Products (10/12/19 13:13) Ct Angio Chest W (10/12/19 14:00) Medications Given in ED Current Medications Medications Dose Ordered Sig/Eddie Route Start Time Stop Time Status Last Admin Dose Admin Al Hydrox/Mg Hydrox/Simethicone 30 ml ONCE ONCE PO 10/12/19 12:45 10/12/19 12:46 DC 10/12/19 13:13 30 ML Ketorolac Tromethamine 15 mg ONCE ONCE IVP 10/12/19 12:15 10/12/19 12:16 DC 10/12/19 12:18 15 MG Lidocaine HCl 10 ml ONCE ONCE PO 10/12/19 12:45 10/12/19 12:46 DC 10/12/19 13:13 10 ML Vital Signs/I&O 10/12/19 11:45 Temp 36.9 Pulse 64 Resp 18 B/P (MAP) 124/89 (101) Pulse Ox 100 O2 Delivery Room Air Blood Pressure Mean: 101 POS Departure Communication (Admissions) Family Conversation 1406-complete resolution of symptoms after GI cocktail NAME: ARIAN MORRIS [facility] REC#: [id number] PT STATUS: REG ER : 1980 PHYSICIAN: GRACIE ALAS APRN ADMIT DATE: 10/12/19/ER Draft POSDate of Exam:10/12/19 [place] GALLBLADDER [id number] INDICATION: Abdominal pain Gallbladder sonography performed in the routine fashion. The liver shows normal echogenicity with no focal lesions. Gallbladder was unremarkable with no stones or wall thickening. Common duct measured 4.6 mm. Pancreas not well seen due to overlying gas. There is no ascites. Right kidney measured 11.5 cm in length and appeared unremarkable. Portal vein is patent. IMPRESSION: Unremarkable gallbladder sonography. Dictated on workstation # [id number] Dict: 10/12/19 1255 Trans: 10/12/19 1257 [facility] [id number] Interpreted by: TABITHA OLIVA MD Electronically signed by: Impression Primary Impression: RUQ pain Disposition: 01 HOME, SELF-CARE Condition: Stable Departure-Patient Inst. Decision time for Depature: 13:03 Referrals: AISSATOU MIKE BRETT D DO GUGNANI, PANKAJ K MD (PCP/Family) Primary Care Physician MAURIZIO SALINAS MD Patient Instructions: Acute Abdomen (Belly Pain) Add. Discharge Instructions: 1. Call one of the surgeons listed to make an appointment to be seen for follow- up, the next step in his workup will include a hepatobiliary scan versus EGD scope. Low fat low dairy product diet in the meantime. All discharge instructions reviewed with patient and/or family. Voiced understanding. Scripts Hydrocodone/Acetaminophen (Seco 5-325 Tablet) 1 Each Tablet 1 TAB PO Q4-6HR for Pain MDD 10 TABS for 7 Days, #10 TAB Prov: GRACIE ALAS APRN 10/12/19 Ondansetron (Ondansetron Odt) 4 Mg Tab.rapdis 4 MG PO Q6H PRN for NAUSEA/VOMITING, #8 TAB 0 Refills Prov: GRACIE ALAS APRN 10/12/19 Work/School Note: Work Release Form Date Seen in the Emergency Department: Oct 12, 2019 Return to Work: Oct 13, 2019 GRACIE ALAS APRN Oct 12, 2019 12:14 POS
[2019-10-12] MEDS ORDERED: KETOROLAC 30 MG/ML VIAL IVP ONE (12:15)
[2019-10-12 12:32] LABS: ALANINE AMINOTRANSFERASE 39 U/L (0-55); ALBUMIN 4.1 GM/DL (3.2-4.5); ALKALINE PHOSPHATASE 60 U/L (40-136); BILIRUBIN,TOTAL 0.2 MG/DL (0.1-1.0); BUN/CREATININE RATIO 15; CALCIUM 8.5 MG/DL (8.5-10.1); CARBON DIOXIDE 24 MMOL/L (21-32); CHLORIDE 107 MMOL/L (98-107); CREATININE SERUM 0.75 MG/DL (0.60-1.30); GFR ESTIMATED > 60; GLUCOSE 87 MG/DL (70-105); LIPASE 22 U/L (8-78); POTASSIUM 3.6 MMOL/L (3.6-5.0); SODIUM 141 MMOL/L (135-145); TOTAL PROTEIN 7.3 GM/DL (6.4-8.2)
[2019-10-12] MEDS ORDERED: ANTACID SUSP 30 ML UDC (MYLANTA) PO ONE (12:45)
[2019-10-12] MEDS ORDERED: LIDOCAINE 2% VISCOUS 15 ML UDC PO ONE (12:45)
--- NOTE | 2019-10-12 12:58 | Diagnostic Imaging Report ---
INDICATION: Abdominal pain Gallbladder sonography performed in the routine fashion. The liver shows normal echogenicity with no focal lesions. Gallbladder was unremarkable with no stones or wall thickening. Common duct measured 4.6 mm. Pancreas not well seen due to overlying gas. There is no ascites. Right kidney measured 11.5 cm in length and appeared unremarkable. Portal vein is patent. IMPRESSION: Unremarkable gallbladder sonography. Dictated by: Dictated on workstation # [id number]
[2019-10-12] MEDS ORDERED: HYDR-4226 PO (13:04)
[2019-10-12] MEDS ORDERED: ONDA4TAB11 PO (13:04)
--- NOTE | 2019-10-12 13:48 | NUR ---
Pt reports GI cocktail has relieved pain significantly.
[2019-10-12] MEDS ORDERED: NS 100 ML (IVPB) BAG IV ONE (14:15)
[2019-10-12] MEDS ORDERED: HOLD METFORMIN - RECEIVED CONTRAST 20 ML VIAL IV SCH (14:15)
[2019-10-12] MEDS ORDERED: IOHEXOL 350 MG/ML 100 ML (OMNIPAQUE 350) VIAL IV ONE (14:15)
--- NOTE | 2019-10-12 14:51 | Diagnostic Imaging Report ---
PROCEDURE: CT angiography of the chest with contrast. TECHNIQUE: Multiple contiguous axial images were obtained through the chest after uneventful bolus administration of intravenous contrast. 3D reconstructed CTA MIP acquisitions were also performed. Auto Exposure Controls were utilized during the CT exam to meet ALARA standards for radiation dose reduction. INDICATION: Chest pain. Shortness of breath. COMPARISON: None FINDINGS: This helical CT pulmonary angiogram is diagnostic to the segmental level branches of the pulmonary artery and demonstrates no pulmonary emboli. The heart and great vessels are unremarkable. There is no pericardial effusion. There is no axillary, mediastinal, or hilar adenopathy. Small nodules are seen in the left lobe of the thyroid. The lungs demonstrate no consolidation, nodules, or other parenchymal abnormality. No pleural effusion or pneumothorax is seen. Osseous structures appear normal. Limited views of the upper abdomen are unremarkable. IMPRESSION: 1. No acute pulmonary embolus. 2. No focal consolidation or pulmonary mass. Dictated by: Dictated on workstation # [id number]
[2019-10-12 15:05] VITALS: BP 137/96
--- OUTSIDE RECORDS SUMMARY | 2019-11-06 14:31 | XMS REPORT | Continuity of Care Document ---
Author Organization Unknown Address Unknown Phone Unavailable Allergies Active Description Code Type Severity Reaction Onset Reported/Identified Relationship to Patient Clinical Status Yes azithromycin [id number] Drug Allergy Unknown N/A 03/06/2019 Yes fexofenadine [id number] Drug Allergy Unknown N/A 03/06/2019 Medications There is no data. 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 GENITAL ORGANS A 03/07/2019 PINKY PHILLIPS MD Ot Z88.1 ALLERGY STATUS TO OTHER ANTIBIOTIC AGENT 03/07/2019 PINKY PHILLIPS MD Ot Z88.8 ALLERGY STATUS TO OTH DRUG/MEDS/BIOL SUB 03/07/2019 PINKY PHILLIPS MD Ot Z98.5 1 TUBAL LIGATION STATUS 03/07/2019 PINKY PHILLIPS MD Ot Z98.8 90 OTHER SPECIFIED POSTPROCEDURAL STATES 03/08/2019 PINKY PHILLIPS MD Ot N93.9 ABNORMAL UTERINE AND VAGINAL BLEEDING, U 03/08/2019 PINKY PHILLIPS MD Ot N94.8 9 OTH COND ASSOC W FEMALE GENITAL ORGANS A 03/08/2019 PINKY PHILLIPS MD Ot Z88.1 ALLERGY STATUS TO OTHER ANTIBIOTIC AGENT 03/08/2019 PINKY PHILLIPS MD Ot Z88.8 ALLERGY STATUS TO OTH DRUG/MEDS/BIOL SUB 03/08/2019 PINKY PHILLIPS MD Ot Z98.5 1 TUBAL LIGATION STATUS 03/08/2019 PINKY PHILLIPS MD Ot Z98.8 90 OTHER SPECIFIED POSTPROCEDURAL STATES 09/26/2019 RUDDY KAY MD Ot R07. 9 CHEST PAIN, UNSPECIFIED 09/26/2019 RUDDY KAY MD Ot Z88. 1 ALLERGY STATUS TO OTHER ANTIBIOTIC AGENT 09/26/2019 RAHUL GUIDO, RUDDY Galindo Ot Z88. 8 ALLERGY STATUS TO [facility] DRUG/MEDS/BIOL SUB Procedures There is no data. Results Test Result Range Complete blood count (CBC) with automate d white blood cell (WBC) differential - 03/06/19 00:05 Blood leukocytes automated count (number/volume) 6.3 10*3/uL 4.3-11.0 Blood erythrocytes automated count (number/volume) 4.19 10*6/uL 4.35-5.85 Venous blood hemoglobin measurement (mass/volume) 10.3 g/dL 11.5-16.0 Blood hematocrit (volume fraction) 34 % 35-52 Automated erythrocyte mean corpuscular volume 81 [ foz_us] 80-99 Automated erythrocyte mean corpuscular h emoglobin (mass per erythrocyte) 25 pg 25-34 Automated erythrocyte mean corpuscular h emoglobin concentration measurement (mass/volume) 30 g/dL 32-36 Automated erythrocyte distribution width ratio 15. 1 % 10.0- 14.5 Automated blood platelet count (count/volume) 219 10*3/uL 130-400 Automated blood platelet mean volume measurement 10.7 [foz_us] 7.4-10.4 Automated blood neutrophils/100 leukocytes 70 % 42-75 Automated blood lymphocytes/100 leukocytes 19 % 12-44 Blood monocytes/100 leukocytes 7 % 0-12 Automated blood eosinophils/100 leukocytes 3 % 0-10 Automated blood basophils/100 leukocytes 1 % 0-10 Blood neutrophils automated count (number/volume) 4.4 10*3 1.8-7.8 Blood lymphocytes automated count (number/volume) 1.2 10*3 1.0-4.0 Blood monocytes automated count (number/volume) 0. 5 10*3 0.0-1.0 Automated eosinophil count 0.2 10*3/uL 0 .0-0.3 Automated blood basophil count (count/volume) 0.0 10*3/uL 0.0-0.1 Complete urinalysis with reflex to cultu re - 03/06/19 00:05 Urine color determination YELLOW NRG Urine clarity determination SLIGHTLY CLOUDY NRG Urine pH measurement by test strip 6.5 5-9 Specific gravity of urine by test strip 1.025 1.016-1.022 Urine protein assay by test strip, semi-quantitative NEGATIVE NEGATIVE Urine glucose detection by automated test strip NE GATIVE NEGATIVE Erythrocytes detection in urine sediment by light micr oscopy 2+ NEGATIVE Urine ketones detection by automated test strip NE GATIVE NEGATIVE Urine nitrite detection by test strip NEGATIVE NEGATIVE Urine total bilirubin detection by test strip NEGA TIVE NEGATIVE Urine urobilinogen measurement by automated test strip (mass/volume) 0.2 mg/dL NORMAL Urine leukocyte esterase detection by dipstick NEG ATIVE NEGATIVE Automated urine sediment erythrocyte cou nt by microscopy (number/high power field) [HPF] NRG Automated urine sediment leukocyte count by microscopy (number/high power field) [HPF] NRG Bacteria detection in urine sediment by light microsco py FEW NRG Squamous epithelial cells detection in u rine sediment by light microscopy 0-2 NRG Crystals detection in urine sediment by light microsco py NONE NRG Casts detection in urine sediment by light microscopy NONE NRG Mucus detection in urine sediment by light microscopy SMALL NRG Complete urinalysis with reflex to culture NO NRG Comprehensive metabolic panel - 03/06/19 00:05 Serum or plasma sodium measurement (moles/volume) 139 mmol/L 135-145 Serum or plasma potassium measurement (moles/volume) 4.3 mmol/L 3.6-5.0 Serum or plasma chloride measurement (moles/volume) 101 mmol/L 98-107 Carbon dioxide 23 mmol/L 21-32 Serum or plasma urea nitrogen measurement (mass/volume ) 18 mg/dL 7-18 Serum or plasma creatinine measurement (mass/volume) 0.84 mg/dL 0.60-1.30 Serum or plasma urea nitrogen/creatinine mass ratio 21 NRG Serum or plasma creatinine measurement w ith calculation of estimated glomerular filtration rate > NRG Serum or plasma glucose measurement (mass/volume) 102 mg/dL 70-105 Serum or plasma calcium measurement (mass/volume) 8.9 mg/dL 8.5-10.1 Serum or plasma total bilirubin measurement (mass/volu me) 0.2 mg/dL 0.1-1.0 Serum or plasma alkaline phosphatase jeannie surement (enzymatic activity/volume) 61 U/L 40-136 Serum or plasma aspartate aminotransfera se measurement (enzymatic activity/volume) 15 U/L 5-34 Serum or plasma alanine aminotransferase measurement (enzymatic activity/volume) 14 U/L 0-55 Serum or plasma protein measurement (mass/volume) 7.4 g/dL 6.4-8.2 Serum or plasma albumin measurement (mass/volume) 4.1 g/dL 3.2-4.5 CALCIUM CORRECTED 8.8 mg/dL 8.5-10.1 Lipase - 03/06/19 00:05 Lipase 18 U/L 8-78 Serum or plasma choriogonadotropin measu rement (units/volume) - 03/06/19 00:05 Serum or plasma choriogonadotropin measurement (units/ volume) < m[iU]/mL <5 Complete blood count (CBC) with automate d white blood cell (WBC) differential - 09/26/19 03:32 Blood leukocytes automated count (number/volume) 10.2 10*3/uL 4.3-11.0 Blood erythrocytes automated count (number/volume) 4.25 10*6/uL 4.35-5.85 Venous blood hemoglobin measurement (mass/volume) 10.2 g/dL 11.5-16.0 Blood hematocrit (volume fraction) 34 % 35-52 Automated erythrocyte mean corpuscular volume 80 [ foz_us] 80-99 Automated erythrocyte mean corpuscular h emoglobin (mass per erythrocyte) 24 pg 25-34 Automated erythrocyte mean corpuscular h emoglobin concentration measurement (mass/volume) 30 g/dL 32-36 Automated erythrocyte distribution width ratio 15. 4 % 10.0- 14.5 Automated blood platelet count (count/volume) 239 10*3/uL 130-400 Automated blood platelet mean volume measurement 10.7 [foz_us] 7.4-10.4 Automated blood neutrophils/100 leukocytes 74 % 42-75 Automated blood lymphocytes/100 leukocytes 18 % 12-44 Blood monocytes/100 leukocytes 6 % 0-12 Automated blood eosinophils/100 leukocytes 2 % 0-10 Automated blood basophils/100 leukocytes 1 % 0-10 Blood neutrophils automated count (number/volume) 7.5 10*3 1.8-7.8 Blood lymphocytes automated count (number/volume) 1.9 10*3 1.0-4.0 Blood monocytes automated count (number/volume) 0. 6 10*3 0.0-1.0 Automated eosinophil count 0.2 10*3/uL 0 .0-0.3 Automated blood basophil count (count/volume) 0.1 10*3/uL 0.0-0.1 PT panel in platelet poor plasma by coag ulation assay - 09/26/19 03:32 Prothrombin time (PT) in platelet poor plasma by coagu lation assay 12.3 s 12.2-14.7 INR in platelet poor plasma or blood by coagulation as say 0.9 0.8-1.4 Activated partial thromboplastin time (a PTT) in platelet poor plasma bycoagulation assay - 09/26/19 03:32 Activated partial thromboplastin time (a PTT) in platelet poor plasma bycoagulation assay 28 s 24-35 TROPONIN I FS - 09/26/19 03:32 TROPONIN I FS < 0.30 <0.30 PROBNP FS - 09/26/19 03:32 PROBNP FS < 75.0 <75.0 Comprehensive metabolic panel - 09/26/19 03:32 Serum or plasma sodium measurement (moles/volume) 141 mmol/L 135-145 Serum or plasma potassium measurement (moles/volume) 4.3 mmol/L 3.6-5.0 Serum or plasma chloride measurement (moles/volume) 102 mmol/L 98-107 Carbon dioxide 27 mmol/L 21-32 Serum or plasma anion gap determination (moles/volume) 12 mmol/L 5-14 Serum or plasma urea nitrogen measurement (mass/volume ) 16 mg/dL 7-18 Serum or plasma creatinine measurement (mass/volume) 0.87 mg/dL 0.60-1.30 Serum or plasma urea nitrogen/creatinine mass ratio 18 NRG Serum or plasma creatinine measurement w ith calculation of estimated glomerular filtration rate > NRG Serum or plasma glucose measurement (mass/volume) 114 mg/dL 70-105 Serum or plasma calcium measurement (mass/volume) 9.3 mg/dL 8.5-10.1 Serum or plasma total bilirubin measurement (mass/volu me) < mg/dL 0.1-1.0 Serum or plasma alkaline phosphatase jeannie surement (enzymatic activity/volume) 58 U/L 40-136 Serum or plasma aspartate aminotransfera se measurement (enzymatic activity/volume) 19 U/L 5-34 Serum or plasma alanine aminotransferase measurement (enzymatic activity/volume) 20 U/L 0-55 Serum or plasma protein measurement (mass/volume) 7.6 g/dL 6.4-8.2 Serum or plasma albumin measurement (mass/volume) 4.1 g/dL 3.2-4.5 CALCIUM CORRECTED 9.2 mg/dL 8.5-10.1 Magnesium - 09/26/19 03:32 Magnesium 2.0 mg/dL 1.6-2.4 Lipase - 09/26/19 03:32 Lipase 17 U/L 8-78 Serum or plasma troponin i.cardiac measu rement (mass/volume) - 09/26/19 06:52 Serum or plasma troponin i.cardiac measurement (mass/v olume) < ng/mL <0.028 Lipid 1996 panel - 09/26/19 06:52 Serum or plasma triglyceride measurement (mass/volume) 72 mg/dL <150 Serum or plasma cholesterol measurement (mass/volume) 173 mg/dL < 200 Serum or plasma cholesterol in HDL measurement (mass/v olume) 63 mg/dL 40-60 Cholesterol in LDL [mass/volume] in serum or plasma by direct assay 111 mg/dL 1-129 Serum or plasma cholesterol in VLDL measurement (mass/ volume) 14 mg/dL 5-40 Complete blood count (CBC) with automate d white blood cell (WBC) differential - 10/12/19 11:50 Blood leukocytes automated count (number/volume) 5.3 10*3/uL 4.3-11.0 Blood erythrocytes automated count (number/volume) 4.41 10*6/uL 4.35-5.85 Venous blood hemoglobin measurement (mass/volume) 10.3 g/dL 11.5-16.0 Blood hematocrit (volume fraction) 34 % 35-52 Automated erythrocyte mean corpuscular volume 78 [ foz_us] 80-99 Automated erythrocyte mean corpuscular h emoglobin (mass per erythrocyte) 23 pg 25-34 Automated erythrocyte mean corpuscular h emoglobin concentration measurement (mass/volume) 30 g/dL 32-36 Automated erythrocyte distribution width ratio 15. 5 % 10.0- 14.5 Automated blood platelet count (count/volume) 231 10*3/uL 130-400 Automated blood platelet mean volume measurement 10.5 [foz_us] 7.4-10.4 Automated blood neutrophils/100 leukocytes 63 % 42-75 Automated blood lymphocytes/100 leukocytes 30 % 12-44 Blood monocytes/100 leukocytes 5 % 0-12 Automated blood eosinophils/100 leukocytes 2 % 0-10 Automated blood basophils/100 leukocytes 0 % 0-10 Blood neutrophils automated count (number/volume) 3.3 10*3 1.8-7.8 Blood lymphocytes automated count (number/volume) 1.6 10*3 1.0-4.0 Blood monocytes automated count (number/volume) 0. 3 10*3 0.0-1.0 Automated eosinophil count 0.1 10*3/uL 0 .0-0.3 Automated blood basophil count (count/volume) 0.0 10*3/uL 0.0-0.1 Serum or plasma choriogonadotropin (preg glen test) detection - 10/12/19 11:50 Serum or plasma choriogonadotropin ( test) de tection NEGATIVE NEGATIVE Comprehensive metabolic panel - 10/12/19 11:50 Serum or plasma sodium measurement (moles/volume) 141 mmol/L 135-145 Serum or plasma potassium measurement (moles/volume) 3.6 mmol/L 3.6-5.0 Serum or plasma chloride measurement (moles/volume) 107 mmol/L 98-107 Carbon dioxide 24 mmol/L 21-32 Serum or plasma anion gap determination (moles/volume) 10 mmol/L 5-14 Serum or plasma urea nitrogen measurement (mass/volume ) 11 mg/dL 7-18 Serum or plasma creatinine measurement (mass/volume) 0.75 mg/dL 0.60-1.30 Serum or plasma urea nitrogen/creatinine mass ratio 15 NRG Serum or plasma creatinine measurement w ith calculation of estimated glomerular filtration rate > NRG Serum or plasma glucose measurement (mass/volume) 87 mg/dL 70-105 Serum or plasma calcium measurement (mass/volume) 8.5 mg/dL 8.5-10.1 Serum or plasma total bilirubin measurement (mass/volu me) 0.2 mg/dL 0.1-1.0 Serum or plasma alkaline phosphatase jeannie surement (enzymatic activity/volume) 60 U/L 40-136 Serum or plasma aspartate aminotransfera se measurement (enzymatic activity/volume) 36 U/L 5-34 Serum or plasma alanine aminotransferase measurement (enzymatic activity/volume) 39 U/L 0-55 Serum or plasma protein measurement (mass/volume) 7.3 g/dL 6.4-8.2 Serum or plasma albumin measurement (mass/volume) 4.1 g/dL 3.2-4.5 CALCIUM CORRECTED 8.4 mg/dL 8.5-10.1 Lipase - 10/12/19 11:50 Lipase 22 U/L 8-78 Fibrin D-dimer FEU measurement in platel et poor plasma (mass/volume) - 10/12/19 13:15 Fibrin D-dimer FEU measurement in platelet poor plasma (mass/volume) 0.96 ug/mL 0.00-0.49 Encounters ACCT No. Visit Date/Time Discharge Status Pt. Type Provider Facility Loc./Unit Complaint [id number] 10/19/2019 14:15:00 10/19/2019 23:59: 59 CLS Outpatient [facility] [id number] 10/12/2019 11:01:00 15:05:00 DIS Emergency GRACIE ALAS APRN [facility] ER BACK PAIN [id number] 09/26/2019 05:03:00 19:22:00 DIS Outpatient RAHUL GUIDO, RUDDY Galindo [facility] 4TH CHEST PAIN LEFT ARM N UMBNESS [id number] 03/06/2019 21:49:00 01:47:00 DIS Emergency ALAN GUIDO, PINKY Hurley [facility] ER FS VAGINAL BLEEDING/FEVER
== END 2019-10-12 15:05 | disposition home or self-care (01) ==
LOC: ER 11:01 → EDUNIT# 11:01 → ER 15:05
DX: R10.11 Right upper quadrant pain (principal); Z88.1 Allergy status to other antibiotic agents; Z88.8 Allergy status to other drugs, medicaments and biological substances; Z98.51 Tubal ligation status
CPT/HCPCS: 36415; 71275; 76705; 80053; 83690; 84703; 85025; 85379; 96374

== ENCOUNTER 2021-06-12 12:54 | Emergency (ER) | payer SELFPAY ==
[~2021-06-12] VITALS: Ht 182 cm; Wt 125.0 kg
[~2021-06-12 12:54] MED LIST changes: +HYDR-4226 PO; +ONDA4TAB11 PO
[2021-06-12] MEDS ORDERED: FAMOTIDINE 20MG/2ML IV (PEPCID) IV STA (13:10)
[2021-06-12] MEDS ORDERED: ANTACID SUSP 30 ML UDC (MYLANTA) PO ONE (13:15)
[2021-06-12] MEDS ORDERED: SUCRALFATE 1 GM (CARAFATE) TAB PO ONE (13:15)
[2021-06-12] MEDS ORDERED: PANTOPRAZOLE 40 MG (PROTONIX) VIAL IV ONE (13:15)
[2021-06-12] MEDS ORDERED: LIDOCAINE 2% VISCOUS 15 ML UDC PO ONE (13:15)
--- NOTE | 2021-06-12 13:26 | ED Chest Pain ---
General Chief Complaint: Chest Pain Stated Complaint: CHEST PAIN Nursing Triage Note: EPIGASTRIC PAIN THAT HAS WAXED AND WANED FOR LAST SEVERAL WEKKS BUT TODAY SHE STATES IT LASTED LONGER. SHE WAS WORKING ON HER HOUSE AND BENT IVER AND HAD A PAIN AND PRESSURE IN HER EPIGASTRIC/CHEST AREA. SHE HAS BEEN HAVING HEARTBURN AND REFLUX LATELY AND HAS A FEELING THAT FOOD GETS STUCK IN HER ESOPHAGUS AFTER EATING. PT TAKES PRILOSEC DAILY. Source: patient Exam Limitations: no limitations History of Present Illness Date Seen by Provider: Jun 12, 2021 Time Seen by Provider: 12:58 Initial Comments Here by EMS with report of chest pain. EMS did give aspirin 324 mg p.o. as well as Zofran 4 mg IV. They did establish 2 IVs and start normal saline 1 L bolus which is completing. She apparently was working on her house and had bent over. When she stood up she had severe chest pain that spread across her chest. She has had several episodes of this recently including with bending over or after meals. She states that she has started omeprazole and that did not help over the last month and then she went back to Pepcid daily. That has not helped. Denies vomiting. She is down to 1 meal daily due to pain worsening when she eats. Denies dysuria or diarrhea. Denies fever chills or other constitutional symptoms. Timing/Duration: 1/2 hour Severity/Quality: moderate, aching, burning, sharp Location: central, epigastric Radiation: back, other (Radiating of her chest) Activities at Onset: activity (Bending over) Prior CP/Workup: no prior cardiac workup Modifying Factors: improves with rest ASA po BUSINESS TEST ANALYST: Yes NTG SL BUSINESS TEST ANALYST: No Associated Symptoms: abdominal pain (Epigastric), back pain; No fatigue, No fever/chills, No nausea/vomiting, No shortness of breath, No weakness Allergies and Home Medications Allergies Coded Allergies: azithromycin (Verified Allergy, Unknown, 03/06/19) fexofenadine (Verified Allergy, Unknown, 03/06/19) Home Medications Famotidine 20 Mg Tablet, 20 MG PO BID Prescribed by: RUDDY KAY on 09/26/19 1154 Hydrocodone/Acetaminophen 1 Each Tablet, 1 TAB PO Q4-6HR Prescribed by: GRACIE ALAS on 10/12/19 1304 Ondansetron 4 Mg Tab.rapdis, 4 MG PO Q6H PRN for NAUSEA/VOMITING Prescribed by: GRACIE ALAS on 10/12/19 1304 Patient Home Medication List Home Medication List Reviewed: Yes Review of Systems Review of Systems Constitutional: see HPI; No chills, No fever EENTM: No Symptoms Reported Respiratory: Denies Cough, Denies Shortness of Air Cardiovascular: Chest Pain; Denies Edema Gastrointestinal: Denies Vomiting; Other (Feeling of fullness in her throat when she tries to swallow. States she feels like there is a bubble in her chest.) Genitourinary: No Symptoms Reported Musculoskeletal: see HPI; No muscle pain, No muscle weakness Skin: no symptoms reported All Other Systems Reviewed Negative Unless Noted: Yes Past Hbryztt-Ebcnrl-Azqiuc Hx Patient Social History Tobacco Use?: No Use of E-Cig and/or Vaping dev: No Substance use?: No Alcohol Use?: No Pt feels they are or have been: No Immunizations Up To Date Tetanus Booster (TDap): Unknown Seasonal Allergies Seasonal Allergies: No Past Medical History Surgeries: Yes (Aneurysm repair in the neck) Section, Tubal Ligation Respiratory: No Cardiac: No Neurological: No QUALITY CONTROL TECH History: Tubal Ligation Genitourinary: No Gastrointestinal: No Musculoskeletal: No Endocrine: No HEENT: No Cancer: No Psychosocial: No Integumentary: No Blood Disorders: No Family Medical History Reviewed Nursing Family Hx Physical Exam Vital Signs Vital Signs - First Documented 06/12/21 06/12/21 13:11 13:14 Temp 36.5 Pulse 73 Resp 14 B/P (MAP) 141/74 (96) Pulse Ox 99 O2 Delivery Room Air Capillary Refill : Less Than 3 Seconds Height, Weight, BMI Height: 6'0" Weight: 240lbs. 0oz. 108.243180po; 37.00 BMI Method:Stated General Appearance: No Apparent Distress, WD/WN, Obese HEENT: PERRL/EOMI, Pharynx Normal Neck: Non Tender, Supple Respiratory: Lungs Clear, Normal Breath Sounds Cardiovascular: Regular Rate, Rhythm, No Murmur Gastrointestinal: Soft, Tenderness (Mild epigastric) Extremity: Normal Range of Motion, Non Tender Neurologic/Psychiatric: Alert, Oriented x3 Progress/Results/Core Measures Results/Orders Lab Results Laboratory Tests Test 06/12/21 13:11 Range/Units White Blood Count 7.0 4.3-11.0 10^3/uL Red Blood Count 4.28 L 4.35-5.85 10^6/uL Hemoglobin 11.1 L 11.5-16.0 G/DL Hematocrit 35 35-52 % Mean Corpuscular Volume 82 80-99 FL Mean Corpuscular Hemoglobin 26 25-34 PG Mean Corpuscular Hemoglobin Concent 32 32-36 G/DL Red Cell Distribution Width 14.9 H 10.0-14.5 % Platelet Count 224 130-400 10^3/uL Mean Platelet Volume 11.2 H 7.4-10.4 FL Immature Granulocyte % (Auto) 0 % Neutrophils (%) (Auto) 62 42-75 % Lymphocytes (%) (Auto) 27 12-44 % Monocytes (%) (Auto) 6 0-12 % Eosinophils (%) (Auto) 4 0-10 % Basophils (%) (Auto) 1 0-10 % Neutrophils # (Auto) 4.3 1.8-7.8 X 10^3 Lymphocytes # (Auto) 1.9 1.0-4.0 X 10^3 Monocytes # (Auto) 0.4 0.0-1.0 X 10^3 Eosinophils # (Auto) 0.3 0.0-0.3 10^3/uL Basophils # (Auto) 0.1 0.0-0.1 10^3/uL Immature Granulocyte # (Auto) 0.0 0.0-0.1 10^3/uL Prothrombin Time 13.6 12.2-14.7 SEC INR Comment 1.0 0.8-1.4 Activated Partial Thromboplast Time 29 24-35 SEC D-Dimer 0.48 0.00-0.49 UG/ML Sodium Level 134 L 135-145 MMOL/L Potassium Level 4.2 3.6-5.0 MMOL/L Chloride Level 100 98-107 MMOL/L Carbon Dioxide Level 22 21-32 MMOL/L Anion Gap 12 5-14 MMOL/L Blood Urea Nitrogen 13 7-18 MG/DL Creatinine 0.68 0.60-1.30 MG/DL Estimat Glomerular Filtration Rate 96 BUN/Creatinine Ratio 19 Glucose Level 98 70-105 MG/DL Calcium Level 9.1 8.5-10.1 MG/DL Corrected Calcium 9.4 8.5-10.1 MG/DL Magnesium Level 1.7 1.6-2.4 MG/DL Total Bilirubin 0.2 0.1-1.0 MG/DL Aspartate Amino Transf (AST/SGOT) 21 5-34 U/L Alanine Aminotransferase (ALT/SGPT) 19 0-55 U/L Alkaline Phosphatase 58 40-136 U/L Myoglobin 21.0 10.0-92.0 NG/ML Troponin I < 0.30 <0.30 NG/ML Total Protein 7.1 6.4-8.2 GM/DL Albumin 3.6 3.2-4.5 GM/DL My Orders Orders - KATE TEJEDA MD Lidocaine 2% Viscous 15 Ml (Xylocaine Vi (06/12/21 13:15) Antacid Suspension (Mylanta Suspension (06/12/21 13:15) Famotidine Injection (Pepcid Injection) (06/12/21 13:10) Cbc With Automated Diff (06/12/21 13:10) Magnesium (06/12/21 13:10) Chest 1 View Ap/Pa Only (06/12/21 13:10) Ekg Tracing (06/12/21 13:10) Comprehensive Metabolic Panel (06/12/21 13:10) Myoglobin Serum (06/12/21 13:10) Protime With Inr (06/12/21 13:10) Partial Thromboplastin Time (06/12/21 13:10) O2 (06/12/21 13:10) Monitor-Rhythm Ecg Trace Only (06/12/21 13:10) Lipid Panel (06/13/21 06:00) Fibrin Degradation Products (06/12/21 13:10) Troponin I Fs (06/12/21 13:10) Pantoprazole Injection (Protonix Injecti (06/12/21 13:15) Sucralfate Tablet (Carafate Tablet) (06/12/21 13:15) Alprazolam Tablet (Xanax Tablet) (06/12/21 15:00) Medications Given in ED Current Medications Medications Dose Ordered Sig/Eddie Route Start Time Stop Time Status Last Admin Dose Admin Al Hydrox/Mg Hydrox/Simethicone 30 ml ONCE ONCE PO 06/12/21 13:15 06/12/21 13:16 DC 06/12/21 13:25 30 ML Alprazolam 0.5 mg ONCE ONCE PO 06/12/21 15:00 06/12/21 15:01 DC 06/12/21 15:02 0.5 MG Lidocaine HCl 15 ml ONCE ONCE PO 06/12/21 13:15 06/12/21 13:16 DC 06/12/21 13:24 15 ML Pantoprazole 40 mg ONCE ONCE IV 06/12/21 13:15 06/12/21 13:16 DC 06/12/21 13:24 40 MG Sucralfate 1 gm ONCE ONCE PO 06/12/21 13:15 06/12/21 13:16 DC 06/12/21 13:24 1 GM Vital Signs/I&O 06/12/21 06/12/21 06/12/21 13:11 13:14 14:54 Temp 36.5 36.5 Pulse 73 72 Resp 14 16 B/P (MAP) 141/74 (96) 133/74 Pulse Ox 99 99 O2 Delivery Room Air Room Air Room Air Blood Pressure Mean: 96 Progress Progress Note : Progress Note Seen and evaluated. IV by EMS x2. Labs, EKG, chest x-ray, Protonix 40 mg IV, Pepcid 20 mg IV, GI cocktail and sucralfate 1 g p.o. ordered. Patient already has had aspirin via EMS. Monitor patient. 1500: Labs and EKG and x-ray reviewed. No acute findings. Overall her initial complaint has resolved but now she is still feeling hot flashes and may be some numbness in her face that is washing over her body. She is noted to be breathing 20-25 times per minute and O2 sats 100%. Vital signs otherwise normal. She does seem to be hyperventilating a little bit and does admit to underlying anxiety disorder. Xanax 0.5 mg p.o. ordered. We will continue to monitor the patient. 1607: Overall doing much better. Patient instructed to follow-up with her doctor and surgeon listed for follow-up. She has been instructed on PPI use as well as histamine nga. Discharged home with return precautions. Patient verbalized understanding of instructions and agreement with plan. Initial ECG Impression Date: Jun 12, 2021 Initial ECG Impression Time: 12:58 Initial ECG Rate: 67 Initial ECG Rhythm: Normal Sinus Initial ECG Impression: Normal Initial ECG Comparisson: Unchanged Comment Normal sinus rhythm with normal axis. No evidence of ST elevation [place]. Similar to previous of 09/26/2019. Interpreted by me. Diagnostic Imaging Diagonstic Imaging: Xray Plain Films/CT/US/NM/MRI: chest Comments [facility]. [place], [place] NAME: [facility] REC#: [id number] PT STATUS: REG ER : 1980 PHYSICIAN: KATE TEJEDA MD ADMIT DATE: 06/12/21/ER FS Draft Date of Exam:06/12/21 CHEST 1 VIEW AP/PA ONLY EXAMINATION: Chest 1 view. HISTORY: Chest pain. COMPARISON: CTA chest 10/12/2019, chest radiograph 09/16/2019. FINDINGS: Heart size and pulmonary vasculature are normal. The lungs are clear without consolidation, pleural effusion, or pneumothorax. The osseous structures are intact. IMPRESSION: 1. No acute radiographic abnormality in the chest. Dictated on workstation # [id number] Dict: 06/12/21 1326 Trans: 06/12/21 1327 [facility] [id number] Interpreted by: LISS BELL DO Electronically signed by: Departure Impression Primary Impression: Chest pain Qualified Codes: R07.9 - Chest pain, unspecified Additional Impression: Gastroesophageal reflux disease Qualified Codes: K21.9 - Gastro-esophageal reflux disease without esophagi tis Disposition: 01 HOME, SELF-CARE Condition: Improved Departure-Patient Inst. Decision time for Depature: 16:08 Referrals: AISSATOU MIKE BRETT D DO GUGNANI, PANKAJ K MD (PCP/Family) Primary Care Physician Patient Instructions: Chest Pain (DC), Acid Reflux and GERD in Adults (DC) Add. Discharge Instructions: All discharge instructions reviewed with patient and/or family. Voiced understanding. You need to follow-up with your doctor for recheck and further evaluation and to discuss medications. You may also discuss referral to a surgeon. You may follow-up with the surgeon listed or of your choosing for recheck and further evaluation as well including possible upper endoscopy (scope). You should initiate omeprazole 20 mg tablets 1 tablet daily and take that for at least the next 6 weeks. You may also take [id number] famotidine (Pepcid) 20 mg t ablets once or twice daily as needed as well. Refrain from spicy or caffeinated foods. Return for worse pain, vomiting, weakness, breathing problems or other concerns as needed. Copy Copies To 1: CHUN BUTTERFIELD MD, TIMOTHY D MD Jun 12, 2021 13:26
[2021-06-12 13:27] LABS: HEMATOCRIT 35 % (35-52); HEMOGLOBIN 11.1 G/DL (11.5-16.0); MEAN CORPUSCULAR HEMOGLOBIN 26 PG (25-34); MEAN CORPUSCULAR HGB CONC 32 G/DL (32-36); MEAN CORPUSCULAR VOLUME 82 FL (80-99); PLATELET COUNT 224 10^3/uL (130-400)
[2021-06-12 13:28] LABS: BASOPHILS # (AUTO) 0.1 10^3/uL (0.0-0.1); BASOPHILS % (AUTO) 1 % (0-10); EOSINOPHILS # (AUTO) 0.3 10^3/uL (0.0-0.3); EOSINOPHILS % (AUTO) 4 % (0-10); LYMPHOCYTES # (AUTO) 1.9 X 10^3 (1.0-4.0); LYMPHOCYTES % (AUTO) 27 % (12-44); MEAN PLATELET VOLUME 11.2 FL (7.4-10.4); MONOCYTES # (AUTO) 0.4 X 10^3 (0.0-1.0); MONOCYTES % (AUTO) 6 % (0-12); NEUTROPHILS # (AUTO) 4.3 X 10^3 (1.8-7.8); NEUTROPHILS % (AUTO) 62 % (42-75)
[2021-06-12 13:53] LABS: PROTHROMBIN TIME PATIENT 13.6 SEC (12.2-14.7)
[2021-06-12 13:55] LABS: BILIRUBIN,TOTAL 0.2 MG/DL (0.1-1.0); CALCIUM 9.1 MG/DL (8.5-10.1); CREATININE SERUM 0.68 MG/DL (0.60-1.30); MAGNESIUM 1.7 MG/DL (1.6-2.4); POTASSIUM 4.2 MMOL/L (3.6-5.0); TOTAL PROTEIN 7.1 GM/DL (6.4-8.2)
[2021-06-12 13:56] LABS: ALBUMIN 3.6 GM/DL (3.2-4.5)
[2021-06-12 14:54] VITALS: BP 133/74
[2021-06-12] MEDS ORDERED: ALPRAZolam 0.25 MG (XANAX) TAB PO ONE (15:00)
== END 2021-06-12 16:11 | disposition home or self-care (01) ==
LOC: EDUNIT# 12:54 → ER FS 13:09
DX: R07.9 Chest pain, unspecified (principal); K21.9 Gastro-esophageal reflux disease without esophagitis; E66.9 Obesity, unspecified; Z68.37 Body mass index [BMI] 37.0-37.9, adult
CPT/HCPCS: 36415; 71045; 80053; 83735; 83874; 84484; 85025; 85379; 85610; 85730; 93005; 93041

== ENCOUNTER 2021-11-09 01:41 | Emergency (ER) | payer SELFPAY ==
[~2021-11-09] VITALS: Ht 183 cm; Wt 126.0 kg
[2021-11-09] MEDS ORDERED: IBUPROFEN 600 MG (MOTRIN) TAB PO ONE (02:30)
--- NOTE | 2021-11-09 02:32 | ED Cough/URI ---
General Chief Complaint: COVID19 Suspect/Confirmed Stated Complaint: SOB Source: patient Exam Limitations: no limitations History of Present Illness Date Seen by Provider: Nov 09, 2021 Time Seen by Provider: 02:20 Initial Comments Patient is a 41-year-old female who presents to the emergency department today with a chief complaint of 48 hours of left-sided sore throat, congestion in her throat, dry cough. No fevers or chills. Slight runny nose. She feels short of breath. Denies chest pain, abdominal pain, nausea vomiting or diarrhea. No urinary complaints, no abnormal vaginal discharge. No rashes, joint pain or swelling. No headache. She is not Covid vaccinated. She had a friend who from Covid this last week. Her last contact with her friend was October 23. She states however she did not have close contact. Her friend had been having symptoms of Covid since about October 16. She has not been taking anything for her sore throat, she went to urgent care on the and had a Covid test that she states was negative. They gave her fast acting Mucinex. She feels like her symptoms worsened this evening. She has not lost taste or smell. All other review of systems reviewed and negative except as stated. Timing/Duration: other (2 days) Severity/Quality: moderate, dry cough Prior Episodes/Possible Cause: illness exposure Associated Symptoms: cough, nasal congestion, sore throat Allergies and Home Medications Allergies Coded Allergies: azithromycin (Verified Allergy, Unknown, 03/06/19) fexofenadine (Verified Allergy, Unknown, 03/06/19) Patient Home Medication List Home Medication List Reviewed: Yes Famotidine (Pepcid) 20 Mg Tablet, 20 MG PO BID Prescribed by: RUDDY KAY on 09/26/19 1154 Hydrocodone/Acetaminophen (Hydrocodone/Acetaminophen 5 MG/325 MG TAB) 1 Each Tablet, 1 TAB PO Q4-6HR Prescribed by: GRACIE ALAS on 10/12/19 1304 Ondansetron (Ondansetron Odt) 4 Mg Tab.rapdis, 4 MG PO Q6H PRN for NAUSEA/VOMITING Prescribed by: GRACIE ALAS on 10/12/19 1304 Review of Systems Review of Systems Constitutional: see HPI EENTM: throat pain (left sided) Respiratory: cough, short of breath Cardiovascular: no symptoms reported Gastrointestinal: no symptoms reported Genitourinary: no symptoms reported : No Musculoskeletal: no symptoms reported Skin: no symptoms reported Psychiatric/Neurological: Anxiety All Other Systems Reviewed Negative Unless Noted: Yes Past Kjcanlv-Szorbj-Oibfbh Hx Patient Social History Tobacco Use?: No Use of E-Cig and/or Vaping dev: No Substance use?: No Alcohol Use?: No Pt feels they are or have been: No Immunizations Up To Date Tetanus Booster (TDap): Unknown Influenza Vaccine Up-to-Date: No; Not Current First/Initial COVID19 Vaccinat: N/A Seasonal Allergies Seasonal Allergies: No Past Medical History Surgeries: Yes (Aneurysm repair in the neck) Section, Tubal Ligation Respiratory: No Cardiac: No Neurological: No RESEARCH TECH History: Tubal Ligation Genitourinary: No Gastrointestinal: No Musculoskeletal: No Endocrine: No HEENT: No Cancer: No Psychosocial: No Integumentary: No Blood Disorders: No Physical Exam Vital Signs - First Documented 11/09/21 02:00 O2 Delivery Room Air Capillary Refill : Height: 6'0" Weight: 240lbs. 0oz. [id number]; 37.00 BMI Method:Stated General Appearance: WD/WN, no apparent distress Eyes: Bilateral Eye Normal Inspection, Bilateral Eye PERRL, Bilateral Eye EOMI HEENT: PERRL/EOMI, pharynx normal (minimal pharyngeal erythema) Neck: non-tender, full range of motion, normal inspection, lymphadenopathy (R), lymphadenopathy (L) (shotty anterior cervical lymphadenopathy) Respiratory: lungs clear (room air sats 99%), normal breath sounds, no respiratory distress, no accessory muscle use Cardiovascular: regular rate, rhythm (76 bpm), other (2+ radial pulses bilaterally) Gastrointestinal: normal bowel sounds, non tender, soft Extremities: normal range of motion, non-tender, normal inspection, no pedal edema, no calf tenderness Neurologic/Psychiatric: alert, normal mood/affect, oriented x 3 Skin: normal color, warm/dry Progress/Results/Core Measures Suspected Sepsis SIRS Temperature: Pulse: Respiratory Rate: Blood Pressure / Mean: Results/Orders Lab Results Laboratory Tests Test 11/09/21 02:05 11/09/21 02:27 Range/Units Influenza Type A (RT-PCR) Not Detected Not Detecte Influenza Type B (RT-PCR) Not Detected Not Detecte SARS-CoV-2 RNA (RT-PCR) Not Detected Not Detecte Group A Streptococcus Screen NEGATIVE NEGATIVE My Orders Orders - ELLIS MÉNDEZ MD Covid 19 Inhouse Test (11/09/21 02:26) Rapid Strep A Screen (11/09/21 02:26) Influenza A And B By Pcr (11/09/21 02:26) Isolation Central Supply Req (11/09/21 02:26) Ibuprofen Tablet (Motrin Tablet) (11/09/21 02:30) Medications Given in ED Current Medications Medications Dose Ordered Sig/Eddie Route Start Time Stop Time Status Last Admin Dose Admin Ibuprofen 600 mg ONCE ONCE PO 11/09/21 02:30 11/09/21 02:31 DC 11/09/21 03:29 600 MG Vital Signs/I&O 11/09/21 02:00 O2 Delivery Room Air Capillary Refill : Progress Note : Time: 03:28 Progress Note COvid, Flu and strep testing neg. Patient reassured. Likely viral syndrome. VSS. No resp distress. no concerns for bacterial infection. Recommend supportive care. All questions are sought and answered. Departure Impression Primary Impression: Acute viral syndrome Disposition: 01 HOME, SELF-CARE Condition: Stable Departure-Patient Inst. Decision time for Depature: 03:29 Referrals: CHUN BUTTERFIELD MD (PCP/Family) Primary Care Physician Patient Instructions: Viral Syndrome (DC) Add. Discharge Instructions: Drink lots of fluids to stay well-hydrated. [id number]-tvq-rxdixub ibuprofen, 3 tablets which is 600 mg every 6 hours as needed for fever over 100.4, throat pain, body aches. Follow-up with Dr. Butterfield on a as scheduled. You might ask him about adding CARAFATE to your medications for acid reflux/GERD. Return to the emergency department for any new, concerning or emergent complaints. All discharge instructions reviewed with patient and/or family. Voiced understanding. Copy Copies To 1: CHUN BUTTERFIELD MD, KATHRYN M MD Nov 09, 2021 02:32
[2021-11-09 03:37] VITALS: BP 144/76
[2021-11-10] MEDS ORDERED: RT-ALBUINH INH (12:19)
== END 2021-11-09 03:37 | disposition home or self-care (01) ==
LOC: EDUNIT# 01:41 → ER 01:44
DX: B34.9 Viral infection, unspecified (principal); Z20.822 Contact with and (suspected) exposure to COVID-19
CPT/HCPCS: 87430; 87636; 99283

== ENCOUNTER 2021-11-10 11:24 | Emergency (ER) | payer SELFPAY ==
[~2021-11-10] VITALS: Ht 182 cm; Wt 139.0 kg
--- NOTE | 2021-11-10 11:30 | ED Dyspnea ---
General Stated Complaint: SOB History of Present Illness Date Seen by Provider: Nov 10, 2021 Time Seen by Provider: 11:27 Initial Comments 41-year-old female presents with cough, feeling of shortness of breath. She reports that her symptoms been going on for about 4 days. She has been seen twice since it started, once at urgent longterm once 2 nights ago at the [facility]. She has had 2 - influenza and Covid test. She was diagnosed with a viral upper respiratory infection. She presents because she continues to feel short of breath and have a cough. No reports of fever or chills. She reports that it gets worse if she lays down. Allergies and Home Medications Allergies Coded Allergies: azithromycin (Verified Allergy, Unknown, 03/06/19) fexofenadine (Verified Allergy, Unknown, 03/06/19) Patient Home Medication List Home Medication List Reviewed: Yes Albuterol Sulfate (Ventolin Hfa) 1 Puff Puff, 2 PUFF INH Q4H Prescribed by: CAMELIA CLAUDIO on 11/10/21 1219 Famotidine (Pepcid) 20 Mg Tablet, 20 MG PO BID Prescribed by: RUDDY KAY on 09/26/19 1154 Hydrocodone/Acetaminophen (Hydrocodone/Acetaminophen 5 MG/325 MG TAB) 1 Each Tablet, 1 TAB PO Q4-6HR Prescribed by: GRACIE ALAS on 10/12/19 1304 Ondansetron (Ondansetron Odt) 4 Mg Tab.rapdis, 4 MG PO Q6H PRN for NAUSEA/VOMITING Prescribed by: GRACIE ALAS on 10/12/19 1304 Review of Systems Review of Systems Constitutional: No chills, No fever Respiratory: cough, orthopnea, short of breath Cardiovascular: No chest pain, No palpitations Gastrointestinal: No abdominal pain, No nausea, No vomiting Genitourinary: no symptoms reported Musculoskeletal: no symptoms reported Skin: no symptoms reported Psychiatric/Neurological: No Symptoms Reported Past Vbtlzzy-Ymzavk-Ytlmdz Hx Immunizations Up To Date Tetanus Booster (TDap): Unknown First/Initial COVID19 Vaccinat: N/A Seasonal Allergies Seasonal Allergies: No Past Medical History Surgeries: Yes (Aneurysm repair in the neck) Section, Tubal Ligation Respiratory: No Cardiac: No Neurological: No 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 0oz. 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 Norm as Tested Skin: Normal Color, Warm/Dry Progress/Results/Core Measures Results/Orders Lab Results Laboratory Tests Test 11/10/21 11:40 Range/Units White Blood Count 4.9 4.3-11.0 10^3/uL Red Blood Count 4.29 3.80-5.11 10^6/uL Hemoglobin 10.4 L 11.5-16.0 g/dL Hematocrit 34 L 35-52 % Mean Corpuscular Volume 80 80-99 fL Mean Corpuscular Hemoglobin 24 L 25-34 pg Mean Corpuscular Hemoglobin Concent 30 L 32-36 g/dL Red Cell Distribution Width 15.0 H 10.0-14.5 % Platelet Count 211 130-400 10^3/uL Mean Platelet Volume 10.3 9.0-12.2 fL Immature Granulocyte % (Auto) 0 % Neutrophils (%) (Auto) 68 42-75 % Lymphocytes (%) (Auto) 19 12-44 % Monocytes (%) (Auto) 8 0-12 % Eosinophils (%) (Auto) 5 0-10 % Basophils (%) (Auto) 1 0-10 % Neutrophils # (Auto) 3.4 1.8-7.8 X 10^3 Lymphocytes # (Auto) 0.9 L 1.0-4.0 X 10^3 Monocytes # (Auto) 0.4 0.0-1.0 X 10^3 Eosinophils # (Auto) 0.2 0.0-0.3 10^3/uL Basophils # (Auto) 0.0 0.0-0.1 10^3/uL Immature Granulocyte # (Auto) 0.0 0.0-0.1 10^3/uL Sodium Level 140 135-145 MMOL/L Potassium Level 4.3 3.6-5.0 MMOL/L Chloride Level 106 98-107 MMOL/L Carbon Dioxide Level 24 21-32 MMOL/L Anion Gap 10 5-14 MMOL/L Blood Urea Nitrogen 10 7-18 MG/DL Creatinine 0.76 0.60-1.30 MG/DL Estimat Glomerular Filtration Rate 84 BUN/Creatinine Ratio 13 Glucose Level 98 70-105 MG/DL Calcium Level 9.1 8.5-10.1 MG/DL Corrected Calcium 9.2 8.5-10.1 MG/DL Total Bilirubin 0.3 0.1-1.0 MG/DL Aspartate Amino Transf (AST/SGOT) 17 5-34 U/L Alanine Aminotransferase (ALT/SGPT) 19 0-55 U/L Alkaline Phosphatase 57 40-136 U/L Total Protein 7.3 6.4-8.2 GM/DL Albumin 3.9 3.2-4.5 GM/DL My Orders Orders - CLAUDIO,CAMELIA L DO Cbc With Automated Diff (11/10/21 11:31) Comprehensive Metabolic Panel (11/10/21 11:31) Chest Pa/Lat (2 View) (11/10/21 11:31) Albuterol/Ipra Inhalation Soln (Duoneb I (11/10/21 11:45) Svn Small Volume Nebulizer (11/10/21 11:31) Medications Given in ED Current Medications Medications Dose Ordered Sig/Eddie Route Start Time Stop Time Status Last Admin Dose Admin Albuterol/ Ipratropium 3 ml ONCE ONCE INH 11/10/21 11:45 11/10/21 11:46 DC 11/10/21 11:35 3 ML Vital Signs/I&O 11/10/21 11/10/21 11:33 12:00 Temp 37.0 37.0 Pulse 71 71 Resp 20 20 B/P (MAP) 176/81 (112) 176/81 Pulse Ox 100 100 O2 Delivery Room Air Room Air Progress Progress Note : Progress Note Patient symptoms improved with a DuoNeb treatment. I will prescribe her a albuterol nebulizer. Patient with likely viral bronchitis. She is had 2 - Covid test in the last 4 days. Patient is stable, discharged home. She should follow-up with her primary care provider as needed Diagnostic Imaging Diagonstic Imaging: Xray Plain Films/CT/US/NM/MRI: chest Comments Date of Exam:11/10/21 CHEST PA/LAT (2 VIEW) INDICATION: cough, sob . TECHNIQUE: Two view chest 11:42 AM CORRELATION STUDY: 06/12/2021 FINDINGS: The heart size, mediastinal configuration and pulmonary vasculature are within normal limits. The lungs are clear with no consolidating infiltrate. There is no significant pleural effusion or pneumothorax. Visualized osseous structures are unremarkable. IMPRESSION: 1. Negative for acute abnormality of the chest. Reviewed: Reviewed by Me, Reviewed/Discussed Departure Impression Primary Impression: Bronchitis Disposition: HOME, SELF-CARE Condition: Stable Departure-Patient Inst. Referrals: CHUN BUTTERFIELD MD (PCP/Family) Primary Care Physician Patient Instructions: Acute Bronchitis Add. Discharge Instructions: Follow-up with your primary care provider in 1 week if symptoms are not improving Use your inhaler every 4 hours today while you are awake then as needed Scripts Albuterol Sulfate (VENTOLIN HFA) 1 Puff Puff 2 PUFF INH Q4H, #1 EA 1 PUFF = 90 MCG Prov: CAMELIA CLAUDIO DO 11/10/21 CAMELIA CLAUDIO DO Nov 10, 2021 11:30
[2021-11-10 11:45] LABS: HEMATOCRIT 34 % (35-52); HEMOGLOBIN 10.4 g/dL (11.5-16.0); LYMPHOCYTES % (AUTO) 19 % (12-44); MEAN CORPUSCULAR HEMOGLOBIN 24 pg (25-34); MEAN CORPUSCULAR HGB CONC 30 g/dL (32-36); MEAN CORPUSCULAR VOLUME 80 fL (80-99); MEAN PLATELET VOLUME 10.3 fL (9.0-12.2); NEUTROPHILS % (AUTO) 68 % (42-75); PLATELET COUNT 211 10^3/uL (130-400); WHITE BLOOD COUNT 4.9 10^3/uL (4.3-11.0)
[2021-11-10] MEDS ORDERED: RT-ALBUTEROL/IPRATROPIUM 3 ML (DUONEB) VIAL INH ONE (11:45)
[2021-11-10 11:46] LABS: BASOPHILS % (AUTO) 1 % (0-10); EOSINOPHILS # (AUTO) 0.2 10^3/uL (0.0-0.3); EOSINOPHILS % (AUTO) 5 % (0-10); LYMPHOCYTES # (AUTO) 0.9 X 10^3 (1.0-4.0); MONOCYTES # (AUTO) 0.4 X 10^3 (0.0-1.0); MONOCYTES % (AUTO) 8 % (0-12); NEUTROPHILS # (AUTO) 3.4 X 10^3 (1.8-7.8)
--- NOTE | 2021-11-10 11:56 | Diagnostic Imaging Report ---
INDICATION: cough, sob . TECHNIQUE: Two view chest 11:42 AM CORRELATION STUDY: 06/12/2021 FINDINGS: The heart size, mediastinal configuration and pulmonary vasculature are within normal limits. The lungs are clear with no consolidating infiltrate. There is no significant pleural effusion or pneumothorax. Visualized osseous structures are unremarkable. IMPRESSION: 1. Negative for acute abnormality of the chest. Dictated by: Dictated on workstation # [id number]
[2021-11-10 12:00] VITALS: BP 176/81
[2021-11-10 12:11] LABS: ALBUMIN 3.9 GM/DL (3.2-4.5); BILIRUBIN,TOTAL 0.3 MG/DL (0.1-1.0); CALCIUM 9.1 MG/DL (8.5-10.1); CREATININE SERUM 0.76 MG/DL (0.60-1.30); POTASSIUM 4.3 MMOL/L (3.6-5.0); TOTAL PROTEIN 7.3 GM/DL (6.4-8.2)
[2021-11-10] MEDS ORDERED: RT-ALBUINH INH (12:19)
== END 2021-11-10 12:21 | disposition home or self-care (01) ==
LOC: EDUNIT# 11:24 → ER FS 11:26
DX: J40 Bronchitis, not specified as acute or chronic (principal); E66.9 Obesity, unspecified; Z68.37 Body mass index [BMI] 37.0-37.9, adult
CPT/HCPCS: 36415; 71046; 80053; 85025

== ENCOUNTER 2021-11-12 07:18 | Emergency (ER) | payer SELFPAY ==
[~2021-11-12] VITALS: Ht 172.7 cm; Wt 137.0 kg
[~2021-11-12 07:18] MED LIST changes: +RT-ALBUINH INH
[2021-11-12] MEDS ORDERED: ONDANSETRON 4 MG (ZOFRAN) ORAL DISSOLVE TAB PO STA (07:57)
[2021-11-12] MEDS ORDERED: predniSONE 20 MG TAB PO STA (07:57)
[2021-11-12] MEDS ORDERED: ONDA4TAB11 PO (08:05)
[2021-11-12] MEDS ORDERED: PRD20T PO (08:05)
--- NOTE | 2021-11-12 08:05 | ED General ---
General Chief Complaint: Respiratory Problems Stated Complaint: SOB Nursing Triage Note: PT AMBULATE TO ROOM FS05 WITH C/O SOB AFTER TAKING ALBUTEROL INHALER. PT STATES THAT AFTER TAKING INHALER SHE FEELS "JITTERY" AND CANNOT BREATHE. PT STATES "MY BRAINS NOT TELLING MY BODY TO BREATHE". PT STATES THAT SHE CANNOT SLEEP BECAUSE SHE "CANNOT BREATHE" WHEN SHE SLEEPS. Source of Information: Patient History of Present Illness Date Seen by Provider: Nov 12, 2021 Time Seen by Provider: 07:21 Initial Comments 41-year-old female presenting again to the emergency department with complaints of anxiety and feeling like she cannot breathe. She had been seen in urgent care and then in the emergency department in [place] and then again here in the emergency department in [place]. She had tested negative for influenza, Covid, strep. She was diagnosed with a viral upper respiratory infection and bronchitis. She had seemed to improve on November 10 with a DuoNeb treatment so she was prescribed an albuterol inhaler. However she states that since starting the inhaler she has been feeling jittery and feeling like she could not breathe. She felt like her mouth was really dry and her heart was racing. She complains that when she tries to go to sleep she stops breathing and wakes up gasping for breath. She feels like her brain is not telling her body to breathe. She also has been coughing to the point that she vomits. She has not been able to bring up anything when she is coughing. She was taking Mucinex initially but felt it was not helping so she switched to Coricidin. She ran out of the Coricidin so she started taking Tylenol cold and sinus. She took a dose of this Tylenol Cold and sinus last night for the first time with her albuterol inhaler and felt worse overnight. Her last use of the albuterol inhaler was 3 AM. She presents to the emergency department this morning concerned that she was overdosed or having a reaction to the albuterol. She was also concerned because she felt like she was not breathing, especially when she went to go to sleep. She reports her anxiety is high and worse since all of this started since Nov 10 when she started using the Albuterol. Timing/Duration: 2-3 Days (these symptoms since Nov 10 when starting Albuterol inhaler. Overall sick about a week) Severity: Severe (very anxious and worried that she is not breathing and having reaction to medicine) Modifying Factors: worse with Medication Associated Systoms: No Chest Pain; Cough; No Diaphoresis; Fever/Chills (low grade fevers under 100 F.), Malaise, Nausea/Vomiting (nauseated and vomiting after coughing fits); No Rash, No Seizure; Shortness of Air; No Syncope, No Weakness Allergies and Home Medications Allergies Coded Allergies: azithromycin (Verified Allergy, Unknown, 03/06/19) fexofenadine (Verified Allergy, Unknown, 03/06/19) Albuterol (Verified Adverse Reaction, Severe, 11/12/21) Jittery and anxious, heart pounding Patient Home Medication List Home Medication List Reviewed: Yes Famotidine (Pepcid) 20 Mg Tablet, 20 MG PO BID Prescribed by: RUDDY KAY on 09/26/19 1154 Ondansetron (Ondansetron Odt) 4 Mg Tab.rapdis, 4 MG PO Q6H PRN for NAUSEA/VOMITING Prescribed by: PINKY PHILLIPS on 11/12/21 0805 Prednisone (Prednisone) 20 Mg Tab, 40 MG PO DAILY Prescribed by: PINKY PHILLIPS on 11/12/21 0805 Discontinued Medications Albuterol Sulfate (Ventolin Hfa) 1 Puff Puff, 2 PUFF INH Q4H Prescribed by: CAMELIA CLAUDIO on 11/10/21 1219 Hydrocodone/Acetaminophen (Hydrocodone/Acetaminophen 5 MG/325 MG TAB) 1 Each Tablet, 1 TAB PO Q4-6HR Prescribed by: GRACIE ALAS on 10/12/19 1304 Ondansetron (Ondansetron Odt) 4 Mg Tab.rapdis, 4 MG PO Q6H PRN for NAUSEA/VOMITING Prescribed by: GRACIE ALAS on 10/12/19 1304 Review of Systems Review of Systems Constitutional: see HPI EENTM: nose congestion; No ear discharge, No ear pain, No epistaxis Respiratory: cough, short of breath; No stridor, No wheezing Cardiovascular: palpitations (feels like heart racing or pounding after taking albuterol) Gastrointestinal: nausea, vomiting (after coughing fits) Genitourinary: No dysuria Musculoskeletal: no symptoms reported Skin: No rash Psychiatric/Neurological: Anxiety Past Sgzmgnr-Bhjtio-Ujecgx Hx Patient Social History Tobacco Use?: No Use of E-Cig and/or Vaping dev: No Substance use?: No Alcohol Use?: No Pt feels they are or have been: No Immunizations Up To Date Tetanus Booster (TDap): Unknown First/Initial COVID19 Vaccinat: N/A Second COVID19 Vaccination Phil: N/A Third COVID19 Vaccination Date: N/A Seasonal Allergies Seasonal Allergies: No Past Medical History Surgeries: Yes (Aneurysm repair in the neck) Section, Tubal Ligation Respiratory: No Cardiac: No 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 0oz. [id number]; 45.00 BMI Method:Stated General Appearance: No Apparent Distress, Anxious, Obese Eyes: Bilateral Eye PERRL, Bilateral Eye EOMI Neck: Full Range of Motion, Normal Inspection, Non Tender, Supple Respiratory: Chest Non Tender, Lungs Clear, Normal Breath Sounds, No Accessory Muscle Use, No Respiratory Distress Cardiovascular: Regular Rate, Rhythm, Normal Peripheral Pulses Extremity: Normal Capillary Refill, Normal Inspection, No Pedal Edema Neurologic/Psychiatric: Alert, Oriented x3, script developer II-XII Norm as Tested, Other (anxious) Skin: Normal Color, Warm/Dry Progress/Results/Core Measures Suspected Sepsis SIRS Temperature: Pulse: 83 Respiratory Rate: 19 Blood Pressure 142 /98 Mean: 113 Results/Orders My Orders Orders - PINKY PHILLIPS MD Prednisone Tablet (Deltasone Tablet) (11/12/21 07:57) Ondansetron Oral Dissolve Tab (Zofran (11/12/21 07:57) Vital Signs/I&O 11/12/21 07:30 Temp 36.1 Pulse 83 Resp 19 B/P (MAP) 142/98 (113) O2 Delivery Room Air Capillary Refill : Less Than 3 Seconds Blood Pressure Mean: 113 Progress Note : Progress Note Reassured patient that her vital signs and exam all look okay and she is satting 100% on room air. Her heart rate was in the 70s to 80s in sinus rhythm. Her blood pressure was doing well. On exam her lungs were clear without wheezing or rails or rhonchi. She was having no respiratory distress here in the emergency department. Counseled that she may just not be tolerating the albuterol and she can certainly stop that medicine. When asked she does report tolerating prednisone and Zofran in the past. Counseled that adding in Zofran would help with the nausea and prednisone should help with swelling and inflammation as well as helping to break up and dry up some of the congestion. In terms of the sensation of waking up gasping for air and not breathing, that sounds more like sleep apnea. She may have some underlying sleep apnea that has undiagnosed and is just now more prominent and being noticed because of having a respiratory infection. Counseled to try using vaporizer or humidifier beside her while sleeping to help keep airways moist and to follow up with Dr. Butterfield about possible sleep study. Departure Impression Primary Impression: Viral upper respiratory tract infection with cough Additional Impressions: Bronchitis Adverse effect of albuterol Qualified Codes: T48.6X5A - Adverse effect of antiasthmatics, initial encounter Sleep apnea-like behavior Disposition: 01 HOME, SELF-CARE Condition: Stable Departure-Patient Inst. Decision time for Depature: 08:00 Referrals: CHUN BUTTERFIELD MD (PCP/Family) Primary Care Physician Patient Instructions: Upper Respiratory Infection ED, Bronchitis, Adult ED, Sleep Apnea in Adults Add. Discharge Instructions: Stop using the albuterol inhaler since you are not tolerating it and it seems to be causing you more side effects than it is helping. Use the steroid to help with cough, congestion, inflammation and swelling of your airways. Use the nausea medicine to help keep your stomach settled so that you can eat and drink better. Use a humidifier or vaporizer beside you while you are sleeping. This will help keep your airways moist and decrease swelling and inflammation from drying out while sleeping. Follow up with Dr. Butterfield and the [facility] clinic about possible sleep study or testing for sleep apnea All discharge instructions reviewed with patient and/or family. Voiced understanding. Scripts Prednisone (Prednisone) 20 Mg Tab 40 MG PO DAILY for Cough/Congestion for 5 Days, #10 TAB 0 Refills Prov: ENYART,PINKY E MD 11/12/21 Ondansetron (Ondansetron Odt) 4 Mg Tab.rapdis 4 MG PO Q6H PRN for NAUSEA/VOMITING for 5 Days, #20 TAB 0 Refills Prov: PINKY PHILLIPS MD 11/12/21 PINKY PHILLIPS MD Nov 12, 2021 08:05
[2021-11-12 08:09] VITALS: BP 119/63
[2021-11-13] MEDS ORDERED: LORA-404 PO (00:56)
== END 2021-11-12 08:09 | disposition home or self-care (01) ==
LOC: EDUNIT# 07:18 → ER FS 07:19
DX: J06.9 Acute upper respiratory infection, unspecified (principal); J40 Bronchitis, not specified as acute or chronic; T48.6X5A Adverse effect of antiasthmatics, initial encounter; E66.9 Obesity, unspecified; Z68.42 Body mass index [BMI] 45.0-49.9, adult
CPT/HCPCS: 99283

== ENCOUNTER 2021-11-12 22:12 | Emergency (ER) | payer SELFPAY ==
[~2021-11-12] VITALS: Ht 182.9 cm; Wt 130.2 kg
[~2021-11-12 22:12] MED LIST changes: +PRD20T PO
--- NOTE | 2021-11-13 00:17 | Diagnostic Imaging Report ---
Clinical indication: Patient with cough and dyspnea. EXAM: Portable chest x-ray upright view. COMPARISON: Chest x-ray dated 06/12/2021. FINDINGS: Lungs/pleura: Lungs are clear. There is no pneumothorax. There is no pleural effusion. Mediastinum: Unremarkable. Pulmonary vasculature: Unremarkable. Heart: Unremarkable. Bones/extrathoracic soft tissue: Unremarkable. IMPRESSION: There is no radiographic evidence of acute cardiopulmonary process. Dictated by: Dictated on workstation # [id number]
[2021-11-13] MEDS ORDERED: RX-LORAZEPAM (ATIVAN) 0.5 MG TAB PPK#4 PO STA (00:53)
--- NOTE | 2021-11-13 00:55 | ED Psychosocial ---
General Chief Complaint: Psych/Social Disorder Stated Complaint: DX W/ BRONCHITIS, "QUIT BREATHING IN SLEEP" Nursing Triage Note: Pt ambulates to ED 7 w c/o "stopping breathing" when falling asleep. States that every time she falls asleep, she wakes up "gasping for air." Has been seen at [facility] ED earlier today and [facility] recently (was diagnosed with bronchitis). Reports that [facility] ED told her she had sleep apnea. Pt reports this started when she began taking albuterol prescribed for bronchitis and has not slept since 0300 11/12/21. Allergies and Home Medications Allergies Coded Allergies: azithromycin (Verified Allergy, Unknown, 03/06/19) fexofenadine (Verified Allergy, Unknown, 03/06/19) albuterol (Verified Adverse Reaction, Severe, 11/12/21) Jittery and anxious, heart pounding Patient Home Medication List Famotidine (Pepcid) 20 Mg Tablet, 20 MG PO BID Prescribed by: RUDDY KAY on 09/26/19 1154 Ondansetron (Ondansetron Odt) 4 Mg Tab.rapdis, 4 MG PO Q6H PRN for NAUSEA/VOMITING Prescribed by: PINKY PHILLIPS on 11/12/21 0805 Prednisone (Prednisone) 20 Mg Tab, 40 MG PO DAILY Prescribed by: PINKY MINORRT on 11/12/21 0805 Discontinued Medications Albuterol Sulfate (Ventolin Hfa) 1 Puff Puff, 2 PUFF INH Q4H Prescribed by: CAMELIA CLAUDIO on 11/10/21 1219 Hydrocodone/Acetaminophen (Hydrocodone/Acetaminophen 5 MG/325 MG TAB) 1 Each Tablet, 1 TAB PO Q4-6HR Prescribed by: GRACIE ALAS on 10/12/19 1304 Ondansetron (Ondansetron Odt) 4 Mg Tab.rapdis, 4 MG PO Q6H PRN for NAUSEA/VOMITING Prescribed by: GRACIE ALAS on 10/12/19 1304 Past Gtgdhex-Exqxyb-Xxqbwv Hx Patient Social History Tobacco Use?: No Smoking Status: Never a Smoker Smokeless Tobacco Frequency: Never a User Use of E-Cig and/or Vaping dev: No Use of E-Cig and/or Vaping Domo: Never a User Substance use?: No Alcohol Use?: Yes Alcohol type: Wine Alcohol Frequency: Once in a while Pt feels they are or have been: No Immunizations Up To Date Tetanus Booster (TDap): Unknown Influenza Vaccine Up-to-Date: No; Not Current First/Initial COVID19 Vaccinat: N/A Second COVID19 Vaccination Phil: N/A Third COVID19 Vaccination Date: N/A Seasonal Allergies Seasonal Allergies: No Past Medical History Surgeries: Yes (Aneurysm repair in the neck) Section, Tubal Ligation Respiratory: No Cardiac: No Neurological: No Last 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 0oz. [id number]; 38.00 BMI Method:Stated Progress/Results/Core Measures Results/Orders Lab Results Laboratory Tests Test 11/12/21 23:25 Range/Units Influenza Type A Antigen NEGATIVE NEGATIVE Influenza Type B Antigen NEGATIVE NEGATIVE SARS-CoV-2 RNA (RT-PCR) Negative Negative My Orders Orders - GREGORY ZIMMERMAN DO Chest 1 View, Ap/Pa Only (11/12/21 23:19) Influenza A & B Antigens (11/12/21 23:19) Covid 19 Inhouse Test (11/12/21 23:19) Isolation Central Supply Req (11/12/21 23:19) Coronavirus Sars-Cov-2 So 2018 (11/13/21 00:06) Rx-Lorazepam (Rx-Ativan) (11/13/21 00:53) Vital Signs/I&O 11/12/21 22:55 Temp 36.5 Pulse 86 Resp 18 B/P (MAP) 158/111 (127) Pulse Ox 100 O2 Delivery Room Air Blood Pressure Mean: 127 Departure Impression Primary Impression: Anxiety Additional Impression: Sleep apnea-like behavior Disposition: 01 HOME, SELF-CARE Condition: Stable Departure-Patient Inst. Decision time for Depature: 00:54 Referrals: CHUN BUTTERFIELD MD (PCP/Family) Primary Care Physician [facility] Patient Instructions: Anxiety, Adult (DC) Add. Discharge Instructions: HOME, REST FOLLOW UP WITH [facility] THIS WEEK FOR FURTHER CARE, CALL IN THE MORNING TO SCHEDULE APPOINTMENT All discharge instructions reviewed with patient and/or family. Voiced understanding. Scripts Lorazepam (Ativan) 0.5 Mg Tablet 0.5 MG PO TID PRN for ANXIETY, #5 TAB Prov: GREGORY ZIMMERMAN DO 11/13/21 GREGORY ZIMMERMAN DO Nov 13, 2021 00:54
[2021-11-13] MEDS ORDERED: LORA-404 PO (00:56)
[2021-11-13 01:04] VITALS: BP 141/69
== END 2021-11-13 01:05 | disposition home or self-care (01) ==
LOC: EDUNIT# 22:12 → ER 22:13
DX: F41.9 Anxiety disorder, unspecified (principal); G47.30 Sleep apnea, unspecified; Z20.822 Contact with and (suspected) exposure to COVID-19
CPT/HCPCS: 71045; 87635; 87636; 87804

== ENCOUNTER 2021-12-02 11:53 | Emergency (ER) | payer SELFPAY ==
[~2021-12-02 11:53] MED LIST changes: +LORA-404 PO
[2021-12-02] MEDS ORDERED: diphenhydrAMINE 50 MG/ML INJ (BENADRYL) IVP STA (12:17)
[2021-12-02] MEDS ORDERED: NS IV 1000 ML 1,000 ML IV STA (12:17)
[2021-12-02] MEDS ORDERED: LORazepam INJ 2 MG/ML (ATIVAN) VIAL IVP STA (12:17)
--- NOTE | 2021-12-02 12:24 | ED General ---
General Chief Complaint: General Problems/Pain Stated Complaint: VOMITING; RASH Nursing Triage Note: Patient presents to the ED with c/o rash to bilateral upper extremities and bumps on her tounge. Reports she started a new medication (Lamictal)9 days ago and the rash started today. Source of Information: Patient, Other (significant other) History of Present Illness Date Seen by Provider: Dec 02, 2021 Time Seen by Provider: 11:57 Initial Comments 41 yo female presenting with complaint of feeling like she is having a reaction to her Lamictal. She started it 9 days ago at 25 mg a day. In the last 24 hours she has started feeling like she was having bumps coming up in her mouth and throat as well as a rash and itching on her arms and neck and face. She feels short of breath and anxious. She had tried to not take the Lamictal last night and felt like she was worse so she ended up taking it. She states that this morning she has been vomiting and not able to keep anything down. She reports decreased urine output in the last 2 or 3 days and not being able to drink as much. She feels like she is dehydrated and is very anxious. She is talking fast and very worried about what is going on. She states that she called the clinic that prescribed her medication and they told her that she needed to be checked out and make sure there was not a [place]-R[address]'s rash. Severity: Moderate Modifying Factors: worse with Medication Associated Systoms: No Chest Pain, No Cough, No Diaphoresis, No Fever/Chills, No Headaches; Loss of Appetite, Malaise, Nausea/Vomiting, Rash; No Seizure; Shortness of Air; No Syncope, No Weakness Allergies and Home Medications Allergies Coded Allergies: azithromycin (Verified Allergy, Unknown, 03/06/19) fexofenadine (Verified Allergy, Unknown, 03/06/19) albuterol (Verified Adverse Reaction, Severe, 11/12/21) Jittery and anxious, heart pounding Patient Home Medication List Home Medication List Reviewed: Yes Famotidine (Pepcid) 20 Mg Tablet, 20 MG PO BID Prescribed by: RUDDY KAY on 09/26/19 1154 Lorazepam (Ativan) 0.5 Mg Tablet, 0.5 MG PO TID PRN for ANXIETY Prescribed by: GREGORY ZIMMERMAN on 11/13/21 0056 Ondansetron (Ondansetron Odt) 4 Mg Tab.rapdis, 4 MG PO Q6H PRN for NAUSEA/VOMITING Prescribed by: PINKY PHILLIPS on 12/02/21 1309 Prednisone (Prednisone) 20 Mg Tab, 40 MG PO DAILY Prescribed by: PINKY MINORRT on 11/12/21 0805 Review of Systems Review of Systems Constitutional: No chills, No fever EENTM: see HPI Respiratory: no symptoms reported Cardiovascular: no symptoms reported Gastrointestinal: see HPI Genitourinary: no symptoms reported Musculoskeletal: no symptoms reported Skin: see HPI Psychiatric/Neurological: Anxiety Past Lwtbxye-Beewxi-Qzwqqe Hx Patient Social History Tobacco Use?: No Use of E-Cig and/or Vaping dev: No Substance use?: No Alcohol Use?: No Pt feels they are or have been: No Immunizations Up To Date Tetanus Booster (TDap): Unknown First/Initial COVID19 Vaccinat: N/A Second COVID19 Vaccination Phil: N/A Third COVID19 Vaccination Date: N/A Seasonal Allergies Seasonal Allergies: No Past Medical History Surgery/Hospitalization HX: anxiety Surgeries: Yes (Aneurysm repair in the neck) Section, Tubal Ligation Respiratory: No Cardiac: No Neurological: No 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 0oz. 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 Skin: Warm/Dry, Rash (erythematous areas on her arm and areas of excoriation) Progress/Results/Core Measures Suspected Sepsis SIRS Temperature: Pulse: 76 Respiratory Rate: 16 Laboratory Tests 12/02/21 12:20: White Blood Count 9.0 Blood Pressure 156 /88 Mean: 110 Laboratory Tests 12/02/21 12:20: Creatinine 0.73, Platelet Count 260, Total Bilirubin 0.2 Results/Orders Lab Results Laboratory Tests Test 12/02/21 12:20 12/02/21 12:30 Range/Units White Blood Count 9.0 4.3-11.0 10^3/uL Red Blood Count 4.55 3.80-5.11 10^6/uL Hemoglobin 11.0 L 11.5-16.0 g/dL Hematocrit 36 35-52 % Mean Corpuscular Volume 80 80-99 fL Mean Corpuscular Hemoglobin 24 L 25-34 pg Mean Corpuscular Hemoglobin Concent 30 L 32-36 g/dL Red Cell Distribution Width 15.1 H 10.0-14.5 % Platelet Count 260 130-400 10^3/uL Mean Platelet Volume 11.1 9.0-12.2 fL Immature Granulocyte % (Auto) 0 % Neutrophils (%) (Auto) 83 H 42-75 % Lymphocytes (%) (Auto) 12 12-44 % Monocytes (%) (Auto) 3 0-12 % Eosinophils (%) (Auto) 1 0-10 % Basophils (%) (Auto) 1 0-10 % Neutrophils # (Auto) 7.5 1.8-7.8 X 10^3 Lymphocytes # (Auto) 1.1 1.0-4.0 X 10^3 Monocytes # (Auto) 0.3 0.0-1.0 X 10^3 Eosinophils # (Auto) 0.1 0.0-0.3 10^3/uL Basophils # (Auto) 0.1 0.0-0.1 10^3/uL Immature Granulocyte # (Auto) 0.0 0.0-0.1 10^3/uL Sodium Level 137 135-145 MMOL/L Potassium Level 4.0 3.6-5.0 MMOL/L Chloride Level 101 98-107 MMOL/L Carbon Dioxide Level 25 21-32 MMOL/L Anion Gap 11 5-14 MMOL/L Blood Urea Nitrogen 11 7-18 MG/DL Creatinine 0.73 0.60-1.30 MG/DL Estimat Glomerular Filtration Rate 107 BUN/Creatinine Ratio 15 Glucose Level 152 H 70-105 MG/DL Calcium Level 9.1 8.5-10.1 MG/DL Corrected Calcium 8.9 8.5-10.1 MG/DL Total Bilirubin 0.2 0.1-1.0 MG/DL Aspartate Amino Transf (AST/SGOT) 17 5-34 U/L Alanine Aminotransferase (ALT/SGPT) 18 0-55 U/L Alkaline Phosphatase 68 40-136 U/L Total Protein 7.6 6.4-8.2 GM/DL Albumin 4.3 3.2-4.5 GM/DL Lipase 20 8-78 U/L Urine Color YELLOW Urine Clarity CLEAR Urine pH 7.5 5-9 Urine Specific [place] 1.020 1.016-1.022 Urine Protein NEGATIVE NEGATIVE Urine Glucose (UA) NEGATIVE NEGATIVE Urine Ketones NEGATIVE NEGATIVE Urine Nitrite NEGATIVE NEGATIVE Urine Bilirubin NEGATIVE NEGATIVE Urine Urobilinogen 0.2 < = 1.0 MG/DL Urine Leukocyte Esterase NEGATIVE NEGATIVE Urine RBC (Auto) NEGATIVE NEGATIVE Urine RBC 0-2 /HPF Urine WBC 2-5 /HPF Urine Squamous Epithelial Cells 10-25 H /HPF Urine Crystals NONE /LPF Urine Bacteria FEW H /HPF Urine Casts NONE /LPF Urine Mucus MODERATE H /LPF Urine Yeast FEW H /HPF Urine Culture Indicated NO My Orders Orders - PINKY PHILLIPS MD Comprehensive Metabolic Panel (12/02/21 12:17) Lipase (12/02/21 12:17) Ua Culture If Indicated (12/02/21 12:17) Ed Iv/Invasive Line Start (12/02/21 12:17) Cbc With Automated Diff (12/02/21 12:17) Diphenhydramine Injection (Benadryl Inje (12/02/21 12:17) Lorazepam Injection (Ativan Injection) (12/02/21 12:17) Ns Iv 1000 Ml (Sodium Chloride 0.9%) (12/02/21 12:17) Vital Signs/I&O 12/02/21 12/02/21 12:08 13:14 Temp 36.3 36.3 Pulse 76 76 Resp 16 16 B/P (MAP) 156/88 (110) 156/88 Pulse Ox 100 100 O2 Delivery Room Air Room Air Capillary Refill : Less Than 3 Seconds Blood Pressure Mean: 110 Progress Note #1: Progress Note Since patient reports that she is having nausea and vomiting and unable to keep anything down will check a urine to see her specific gravity and how concentrated it is. Also will evaluate her basic labs and electrolytes to look at her results on her blood. Try giving IV fluids for hydration, Benadryl for itching and rash, extra dose of Ativan to help with her nausea and itching as well as anxiety. Progress Note #2: Progress Note On recheck of the patient and her labs all appear stable without acute significant abnormality. She has mild elevation of her glucose. Her urine does not show signs of infection and was not severely concentrated. Her specific gravity was 1.020. Her symptoms were improved with treatment. Counseled on stopping medication and that the half-life was 24 to 25 hours. Advised to use Benadryl as needed for itching, rash, swelling 25 to 50 mg every 4 hours. Zofran prescription was sent to the pharmacy for nausea. Continue on her Ativan to help with anxiety and side effects of the medication and stopping it. Counseled that it would take 2 to 3 days for the medicine to get out of her system and to call the clinic to follow-up then continue to manage her health and withdrawal of the medication Departure Impression Primary Impression: Medication reaction Qualified Codes: T50.905A - Adverse effect of unspecified drugs, medicaments and biological substances, initial encounter Disposition: HOME, SELF-CARE Condition: Stable Departure-Patient Inst. Decision time for Depature: 13:06 Referrals: CHUN BUTTERFIELD MD (PCP/Family) Primary Care Physician Patient Instructions: Adverse Drug Reactions, Adult ED Add. Discharge Instructions: I would recommend that you stop the Lamictal and let it wear out of your system. For side effects from the medicine you could use Diphenhydramine (Benadryl) for itching and nausea. Zofran (Ondansetron) for nausea. Use your Lorazepam for anxiety Call clinic in am to see how they want to approach your symptoms now that you are not tolerating Lamictal. All discharge instructions reviewed with patient and/or family. Voiced understanding. Scripts Ondansetron (Ondansetron Odt) 4 Mg Tab.rapdis 4 MG PO Q6H PRN for NAUSEA/VOMITING for 5 Days, #20 TAB 0 Refills Prov: PINKY PHILLIPS MD 12/02/21 PINKY PHILLIPS MD Dec 02, 2021 12:24
[2021-12-02 12:29] LABS: BASOPHILS # (AUTO) 0.1 10^3/uL (0.0-0.1); BASOPHILS % (AUTO) 1 % (0-10); EOSINOPHILS # (AUTO) 0.1 10^3/uL (0.0-0.3); EOSINOPHILS % (AUTO) 1 % (0-10); HEMATOCRIT 36 % (35-52); LYMPHOCYTES # (AUTO) 1.1 X 10^3 (1.0-4.0); LYMPHOCYTES % (AUTO) 12 % (12-44); MEAN CORPUSCULAR HEMOGLOBIN 24 pg (25-34); MEAN CORPUSCULAR HGB CONC 30 g/dL (32-36); MEAN CORPUSCULAR VOLUME 80 fL (80-99); MEAN PLATELET VOLUME 11.1 fL (9.0-12.2); MONOCYTES # (AUTO) 0.3 X 10^3 (0.0-1.0); MONOCYTES % (AUTO) 3 % (0-12); NEUTROPHILS # (AUTO) 7.5 X 10^3 (1.8-7.8); NEUTROPHILS % (AUTO) 83 % (42-75); PLATELET COUNT 260 10^3/uL (130-400)
[2021-12-02 12:37] LABS: BACTERIA,URINE FEW /HPF; BILIRUBIN,URINE NEGATIVE (NEGATIVE); CLARITY,URINE CLEAR; COLOR,URINE YELLOW; GLUCOSE, URINE (UA) NEGATIVE (NEGATIVE); KETONES,URINE NEGATIVE (NEGATIVE); LEUKOCYTE ESTERASE ,URINE NEGATIVE (NEGATIVE); NITRITE,URINE NEGATIVE (NEGATIVE); PH,URINE 7.5 (5-9); PROTEIN,URINE NEGATIVE (NEGATIVE); RBC,URINE 0-2 /HPF
[2021-12-02 12:38] LABS: YEAST,URINE FEW /HPF
[2021-12-02 12:47] LABS: CREATININE SERUM 0.73 MG/DL (0.60-1.30)
[2021-12-02 12:48] LABS: ALBUMIN 4.3 GM/DL (3.2-4.5); BILIRUBIN,TOTAL 0.2 MG/DL (0.1-1.0); CALCIUM 9.1 MG/DL (8.5-10.1); TOTAL PROTEIN 7.6 GM/DL (6.4-8.2)
[2021-12-02] MEDS ORDERED: ONDA4TAB11 PO (13:09)
[2021-12-02 13:14] VITALS: BP 156/88
== END 2021-12-02 13:14 | disposition home or self-care (01) ==
LOC: EDUNIT# 11:53 → ER FS 11:55
DX: T42.6X5A Adverse effect of other antiepileptic and sedative-hypnotic drugs, initial encounter (principal); F41.9 Anxiety disorder, unspecified; E66.9 Obesity, unspecified; Z68.38 Body mass index [BMI] 38.0-38.9, adult; Z79.899 Other long term (current) drug therapy
CPT/HCPCS: 36415; 80053; 81000; 83690; 85025

== ENCOUNTER 2021-12-08 06:47 | Emergency (ER) | payer SELFPAY ==
[~2021-12-08] VITALS: Ht 182.9 cm; Wt 135.6 kg
[2021-12-08 07:04] LABS: BASOPHILS % (AUTO) 0 % (0-10); EOSINOPHILS % (AUTO) 2 % (0-10); HEMATOCRIT 36 % (35-52); LYMPHOCYTES % (AUTO) 17 % (12-44); MEAN CORPUSCULAR HEMOGLOBIN 24 pg (25-34); MEAN CORPUSCULAR HGB CONC 30 g/dL (32-36); MEAN CORPUSCULAR VOLUME 80 fL (80-99); MONOCYTES % (AUTO) 4 % (0-12); NEUTROPHILS % (AUTO) 76 % (42-75); PLATELET COUNT 242 10^3/uL (130-400); WHITE BLOOD COUNT 10.4 10^3/uL (4.3-11.0)
[2021-12-08 07:05] LABS: EOSINOPHILS # (AUTO) 0.2 10^3/uL (0.0-0.3); LYMPHOCYTES # (AUTO) 1.8 X 10^3 (1.0-4.0); MONOCYTES # (AUTO) 0.5 X 10^3 (0.0-1.0)
--- NOTE | 2021-12-08 07:08 | Diagnostic Imaging Report ---
INDICATION: Chest pain. Comparison is made with prior examination from 11/12/2021. FINDINGS: The heart size, mediastinal configuration, and pulmonary vascularity are within normal limits. There is no pleural effusion, pneumothorax, or pneumonia. The osseous structures are unremarkable. IMPRESSION: No acute cardiopulmonary abnormality. Dictated by: Dictated on workstation # [id number]
--- NOTE | 2021-12-08 07:14 | ED Chest Pain ---
General Chief Complaint: Chest Pain Stated Complaint: CHEST PAIN;LT ARM PAIN;DIARRHEA Nursing Triage Note: PT AMBULATE TO ROOM FS01 WITH C/O CHEST PAIN SINCE 023 THIS MORNING. PT REPORTS SHE WAS TAKEN OFF ALL HER MEDICATION BY HER PCP. PT STATES THE CHEST PAIN WOKE HER UP AND SHE WENT TO BATHROOM AND HAD A BM. Source: patient History of Present Illness Date Seen by Provider: Dec 08, 2021 Time Seen by Provider: 07:00 Initial Comments 41-year-old female presenting with complaints of waking up at 230 this morning with sharp pain in her chest going through to her back. She states that this seems to come in waves for her and feels like her back and her chest are being pulled together. It does seem to help if she arches her back. She also has been having nausea and vomiting for the last several days that she has attributed to withdrawal from lamotrigine. She had been started on lamotrigine 2 weeks ago at 25 mg a day and after about 5 days of the medicine she felt like she was having a rash and tongue swelling so she had stopped the medication and has felt like she was having withdrawal symptoms ever since. She has nausea medicine of Zofran at home but felt that it was not helping. She denies having any heartburn or acid sensation in her chest or throat. She did also have several bowel movements after having the pain wake her up this morning. She denies fever, chills, cough, pain or burning with urination. She has had no blood in her bowel movements. She states that she did not have any diarrhea she just had several bowel movements this morning. She does have lorazepam for anxiety but has not been able to keep it down either due to her nausea and vomiting. Severity/Quality: severe, sharp Location: central Radiation: back Activities at Onset: sleep Prior CP/Workup: non-cardiac Modifying Factors: improves with movement (Arching her back seems to help the pain) ASA po INVESTMENT ASSOCIATE: No NTG SL INVESTMENT ASSOCIATE: No Associated Symptoms: No abdominal pain, No back pain, No diaphoresis, No dizziness, No edema, No fatigue, No fever/chills, No headache, No heartburn; nausea/vomiting (For the last several days); No rash, No shortness of breath, No swelling/lump in chest, No syncope, No weakness Allergies and Home Medications Allergies Coded Allergies: azithromycin (Verified Allergy, Unknown, 03/06/19) fexofenadine (Verified Allergy, Unknown, 03/06/19) albuterol (Verified Adverse Reaction, Severe, 11/12/21) Jittery and anxious, heart pounding Patient Home Medication List Home Medication List Reviewed: Yes Famotidine (Pepcid) 20 Mg Tablet, 20 MG PO BID Prescribed by: RUDDY KAY on 09/26/19 1154 Lorazepam (Ativan) 0.5 Mg Tablet, 0.5 MG PO TID PRN for ANXIETY Prescribed by: GREGORY ZIMMERMAN on 11/13/21 0056 Ondansetron (Ondansetron Odt) 4 Mg Tab.rapdis, 4 MG PO Q6H PRN for NAUSEA/VOMITING Prescribed by: PINKY PHILLIPS on 12/02/21 1309 Prednisone (Prednisone) 20 Mg Tab, 40 MG PO DAILY Prescribed by: PINKY PHILLIPS on 11/12/21 0805 Review of Systems Review of Systems Constitutional: No chills, No fever EENTM: No Symptoms Reported Respiratory: No Symptoms Reported Cardiovascular: See HPI Gastrointestinal: See HPI Genitourinary: Denies Burning, Denies Frequency Musculoskeletal: no symptoms reported Skin: No rash Psychiatric/Neurological: Anxiety; Denies Headache Hematologic/Lymphatic: Denies Blood Clots Past Cdslvje-Fghpyh-Mxscuf Hx Patient Social History Tobacco Use?: No Smoking Status: Never a Smoker Smokeless Tobacco Frequency: Never a User Use of E-Cig and/or Vaping dev: No Use of E-Cig and/or Vaping Domo: Never a User Substance use?: No Alcohol Use?: No Pt feels they are or have been: No Immunizations Up To Date Tetanus Booster (TDap): Unknown First/Initial COVID19 Vaccinat: N/A Second COVID19 Vaccination Phil: N/A Third COVID19 Vaccination Date: N/A Seasonal Allergies Seasonal Allergies: No Past Medical History Surgery/Hospitalization HX: anxiety Surgeries: Yes (Aneurysm repair in the neck) Section, Tubal Ligation Respiratory: No Cardiac: No Neurological: No 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 0oz. 108.384763an; 40.00 BMI Method:Stated General Appearance: Anxious, Obese HEENT: PERRL/EOMI, Pharynx Normal, Moist Mucous Membranes Neck: Full Range of Motion, Normal Inspection, Non Tender, Supple; No Carotid Bruit Respiratory: Chest Non Tender, Lungs Clear, Normal Breath Sounds, No Accessory Muscle Use, No Respiratory Distress Cardiovascular: Regular Rate, Rhythm, No Murmur, Normal Peripheral Pulses Gastrointestinal: Normal Bowel Sounds, No Pulsatile Mass, Non Tender, Soft Rectal: Deferred Extremity: Normal Capillary Refill, Normal Inspection, No Calf Tenderness, No Pedal Edema Neurologic/Psychiatric: Alert, Oriented x3, md pediatric allergist II-XII Norm as Tested, Other (Patient appears anxious) Skin: Normal Color, Warm/Dry Progress/Results/Core Measures Results/Orders Lab Results Laboratory Tests Test 12/08/21 06:56 Range/Units White Blood Count 10.4 4.3-11.0 10^3/uL Red Blood Count 4.53 3.80-5.11 10^6/uL Hemoglobin 11.0 L 11.5-16.0 g/dL Hematocrit 36 35-52 % Mean Corpuscular Volume 80 80-99 fL Mean Corpuscular Hemoglobin 24 L 25-34 pg Mean Corpuscular Hemoglobin Concent 30 L 32-36 g/dL Red Cell Distribution Width 15.6 H 10.0-14.5 % Platelet Count 242 130-400 10^3/uL Mean Platelet Volume 11.0 9.0-12.2 fL Immature Granulocyte % (Auto) 0 % Neutrophils (%) (Auto) 76 H 42-75 % Lymphocytes (%) (Auto) 17 12-44 % Monocytes (%) (Auto) 4 0-12 % Eosinophils (%) (Auto) 2 0-10 % Basophils (%) (Auto) 0 0-10 % Neutrophils # (Auto) 8.0 H 1.8-7.8 X 10^3 Lymphocytes # (Auto) 1.8 1.0-4.0 X 10^3 Monocytes # (Auto) 0.5 0.0-1.0 X 10^3 Eosinophils # (Auto) 0.2 0.0-0.3 10^3/uL Basophils # (Auto) 0.0 0.0-0.1 10^3/uL Immature Granulocyte # (Auto) 0.0 0.0-0.1 10^3/uL Sodium Level 140 135-145 MMOL/L Potassium Level 4.1 3.6-5.0 MMOL/L Chloride Level 105 98-107 MMOL/L Carbon Dioxide Level 24 21-32 MMOL/L Anion Gap 11 5-14 MMOL/L Blood Urea Nitrogen 11 7-18 MG/DL Creatinine 0.72 0.60-1.30 MG/DL Estimat Glomerular Filtration Rate 108 BUN/Creatinine Ratio 15 Glucose Level 109 H 70-105 MG/DL Calcium Level 9.3 8.5-10.1 MG/DL Corrected Calcium 9.2 8.5-10.1 MG/DL Magnesium Level 2.0 1.6-2.4 MG/DL Total Bilirubin 0.2 0.1-1.0 MG/DL Aspartate Amino Transf (AST/SGOT) 16 5-34 U/L Alanine Aminotransferase (ALT/SGPT) 15 0-55 U/L Alkaline Phosphatase 57 40-136 U/L Troponin I < 0.30 <0.30 NG/ML C-Reactive Protein 1.03 H <0.50 MG/DL Total Protein 7.5 6.4-8.2 GM/DL Albumin 4.1 3.2-4.5 GM/DL Lipase 15 8-78 U/L My Orders Orders - PINKY PHILLIPS MD Iv 1000 Ml (Sodium Chloride 0.9%) (12/08/21 07:47) Pantoprazole Injection (Protonix Injecti (12/08/21 07:47) Famotidine Injection (Pepcid Injection) (12/08/21 07:47) Lorazepam Injection (Ativan Injection) (12/08/21 07:47) Ondansetron Injection (Zofran Injectio (12/08/21 07:47) Vital Signs/I&O 12/08/21 12/08/21 06:48 09:33 Temp 36.5 Pulse 84 76 Resp 20 17 B/P (MAP) 127/71 (89) 124/71 Pulse Ox 100 O2 Delivery Room Air Room Air Blood Pressure Mean: 89 Progress Progress Note #1: Progress Note Obtain labs as well as electrocardiogram and chest x-ray. The electrocardiogram that was obtained on arrival does not show any ST elevation. There was artifact on the tracing but it shows sinus rhythm and appears similar to tracing from June 2021 when she was seen for chest pain previously. Chest x-ray is clear without acute process. Awaiting labs. Based on her symptom description of having sensation of her chest and back being pulled together and squeezed that is coming in waves it sounds as though she is having some sort of spasm that may be related back to her anxiety and irritation to her esophagus and stomach as well as muscles in her chest since she has been vomiting for several days. She has not had any of the 25 mg Lamictal since 01 December so by now that medication should have been worn out of her system to where she is not having continued withdrawal symptoms that she is complaining of. Will try a liter of normal saline IV for hydration, Zofran 4 mg IV for nausea, Pepcid 20 mg IV for gastritis and stomach irritation with her vomiting for the last several days, pantoprazole 40 mg IV for again having multiple episodes of vomiting in the last few days. I did discuss trying a different nausea medicine with the patient since she states that Zofran was not helping at home. However since she is so sensitive to medication and tends to have side effects from the medicines that did not want to give her a nausea medicine she had not had previously been cause her to have a dystonic reaction or side effects with Phenergan, Reglan, Compazine. We will see how she does with IV dose of Zofran. We will also give lorazepam 1 mg IV to help with anxiety and this should also help with her nausea. The acid reducing medicines of Pepcid and pantoprazole should also contribute some to help in her nausea. Progress Note #2: Progress Note 0748 labs appear stable without acute significant abnormality on CBC or chemistry. Her cardiac enzymes are negative. She has mild elevation of her CRP to 1. Will recheck her after meds and fluids infuse and see how she is feeling at that point. Progress Note #3: Progress Note Patient reports feeling a little better after treatment in the ED. Reassured and counseled patient on findings and results. Reassured that her heart and lungs appear to be normal without any evidence of ischemia or heart attack. Advised that with her repeated episodes of emesis and dry heaves and not being able to eat well she will have irritation to the stomach and esophagus. This will cause her to have gastritis and esophagitis even without having heartburn. Counseled on follow up and return precautions. Initial ECG Impression Date: Dec 08, 2021 Initial ECG Impression Time: 06:44 Initial ECG Rate: 74 Initial ECG Rhythm: Normal Sinus Initial ECG Comparisson: Unchanged Comment Normal sinus rhythm with a heart rate of [address] elevation. Low voltage precordial leads. QT interval 354 ms with a QTc interval 393 ms. Appears similar to prior tracing from June 2021 Diagnostic Imaging Diagonstic Imaging: Xray Plain Films/CT/US/NM/MRI: chest Comments NAME: ARIAN MEDINA MED REC#: [id number] PT STATUS: REG ER : 1980 PHYSICIAN: CAMELIA CLAUDIO DO ADMIT DATE: 12/08/21/ER FS Draft Date of Exam:12/08/21 CHEST 1 VIEW AP/PA ONLY INDICATION: Chest pain. Comparison is made with prior examination from 11/12/2021. FINDINGS: The heart size, mediastinal configuration, and pulmonary vascularity are within normal limits. There is no pleural effusion, pneumothorax, or pneumonia. The osseous structures are unremarkable. IMPRESSION: No acute cardiopulmonary abnormality. Dictated on workstation # [id number] Dict: 12/08/21 0702 Trans: 12/08/21 0708 [id number] Interpreted by: AURORA LANDON MD Electronically signed by: Reviewed: Reviewed by Me Departure Impression Primary Impression: Atypical chest pain Additional Impressions: Anxiety Nausea & vomiting Qualified Codes: R11.14 - Bilious vomiting Esophagitis with gastritis Disposition: 01 HOME, SELF-CARE Condition: Stable Departure-Patient Inst. Decision time for Depature: 09:25 Referrals: CHUN BUTTERFIELD MD (PCP/Family) Primary Care Physician Patient Instructions: Nausea and Vomiting, Adult ED, Gastritis ED, Chest Pain That Is Not Caused by the Heart (DC) Add. Discharge Instructions: Try increasing the bland foods in your diet to help get more on your stomach. you could also consider Protein shakes or drinks to help with nutrition Add Pepcid or famotidine 20 mg a day to medications at least for the next week to help with irritation to your stomach and esophagus from all the vomiting and not being able to eat as well over the last week or 2. You could also consider increasing the omeprazole or Prilosec to twice a day for the next week to help with acid and irritation to the stomach and esophagus lining. Continue using the dissolving Zofran (Ondansetron) for nausea if needed and Ativan or lorazepam to help with anxiety and stress if needed All discharge instructions reviewed with patient and/or family. Voiced understanding. PINKY PHILLIPS MD Dec 08, 2021 07:14
[2021-12-08 07:27] LABS: CARBON DIOXIDE 24 MMOL/L (21-32); CHLORIDE 105 MMOL/L (98-107); POTASSIUM 4.1 MMOL/L (3.6-5.0); SODIUM 140 MMOL/L (135-145)
[2021-12-08 07:28] LABS: ALANINE AMINOTRANSFERASE 15 U/L (0-55); ALBUMIN 4.1 GM/DL (3.2-4.5); ALKALINE PHOSPHATASE 57 U/L (40-136); BILIRUBIN,TOTAL 0.2 MG/DL (0.1-1.0); BUN/CREATININE RATIO 15; CALCIUM 9.3 MG/DL (8.5-10.1); CREATININE SERUM 0.72 MG/DL (0.60-1.30); GFR ESTIMATED 108; GLUCOSE 109 MG/DL (70-105); TOTAL PROTEIN 7.5 GM/DL (6.4-8.2)
[2021-12-08 07:39] LABS: LIPASE 15 U/L (8-78)
[2021-12-08] MEDS ORDERED: LORazepam INJ 2 MG/ML (ATIVAN) VIAL IVP STA (07:47)
[2021-12-08] MEDS ORDERED: ONDANSETRON 4 MG/2 ML (SDV) Z0FRAN IVP STA (07:47)
[2021-12-08] MEDS ORDERED: PANTOPRAZOLE 40 MG (PROTONIX) VIAL IV STA (07:47)
[2021-12-08] MEDS ORDERED: NS IV 1000 ML 1,000 ML IV STA (07:47)
[2021-12-08] MEDS ORDERED: FAMOTIDINE 20MG/2ML IV (PEPCID) IVP STA (07:47)
[2021-12-08 09:33] VITALS: BP 124/71
== END 2021-12-08 09:33 | disposition home or self-care (01) ==
LOC: EDUNIT# 06:47 → ER FS 06:49
DX: F41.9 Anxiety disorder, unspecified (principal); K21.00 Gastro-esophageal reflux disease with esophagitis, without bleeding; Z79.899 Other long term (current) drug therapy
CPT/HCPCS: 36415; 71045; 80053; 83690; 83735; 84484; 85025; 86141; 93005

== ENCOUNTER 2021-12-14 22:41 | Emergency (ER) | payer MEDICAID, OTHER ==
[~2021-12-14] VITALS: Ht 182 cm; Wt 131.0 kg
[2021-12-14 22:45] VITALS: BP 152/88
--- NOTE | 2021-12-14 23:10 | ED General ---
General Chief Complaint: Abdominal/GI Problems Stated Complaint: CP,VOMITTING,UNABLE TO GO TO THE BATHROOM,FEVER Source of Information: Patient, Old Records Exam Limitations: Other (anxiety) History of Present Illness Date Seen by Provider: Dec 14, 2021 Time Seen by Provider: 22:44 Initial Comments 41-year-old female presenting with complaints of having continued nausea, vomiting, constipation with only having watery loose diarrhea stools for the last week. She also has felt like she was having fevers and had a T-max of 102.7 earlier today. She states that if she takes Tylenol with just a small amount of water she can hold it down she has done that to help control her fevers. If she drinks more than just a small amount of water she vomits. She has not been able to eat all week because of the vomiting. She had x-rays done through urgent care earlier today but never got called with results. Since she continued to have symptoms and concerns she came in for yet another emergency department evaluation for her complaints. She has been seen multiple times for similar symptoms over the last month. Modifying Factors: worse with Eating Associated Systoms: Chest Pain (epigastric); No Cough, No Diaphoresis; Fever/Chills (t max of 102.7 F today), Headaches; No Loss of Appetite (has been hungry and wanting to eat but if she tries to eat she vomits); Malaise, Nausea/Vomiting; No Rash, No Seizure, No Shortness of Air, No Syncope, No Weakness Allergies and Home Medications Allergies Coded Allergies: azithromycin (Verified Allergy, Unknown, 03/06/19) fexofenadine (Verified Allergy, Unknown, 03/06/19) albuterol (Verified Adverse Reaction, Severe, 11/12/21) Jittery and anxious, heart pounding Patient Home Medication List Home Medication List Reviewed: Yes Famotidine (Pepcid) 20 Mg Tablet, 20 MG PO BID Prescribed by: RUDDY KAY on 09/26/19 1154 Lorazepam (Ativan) 0.5 Mg Tablet, 0.5 MG PO TID PRN for ANXIETY Prescribed by: GREGORY ZIMMERMAN on 11/13/21 0056 Ondansetron (Ondansetron Odt) 4 Mg Tab.rapdis, 4 MG PO Q6H PRN for NAUSEA/VOMITING Prescribed by: PINKY PHILLIPS on 12/02/21 1309 Prednisone (Prednisone) 20 Mg Tab, 40 MG PO DAILY Prescribed by: PINKY MINORRT on 11/12/21 0805 Promethazine HCl (Promethazine Tablet) 25 Mg Tablet, 25 MG PO Q8H PRN for NAUSEA/VOMITING Prescribed by: PINKY MAKYART on 12/15/21 0121 Review of Systems Review of Systems Constitutional: see HPI, chills, fever EENTM: no symptoms reported Respiratory: no symptoms reported Cardiovascular: no symptoms reported Gastrointestinal: abdominal pain (right sided abdominal pains), diarrhea, nausea, vomiting Genitourinary: No dysuria, No frequency Musculoskeletal: no symptoms reported Skin: No rash Psychiatric/Neurological: Anxiety, Emotional Problems; Denies Headache Past Ptrkcsq-Iaaovg-Rsvkib Hx Patient Social History Tobacco Use?: No Use of E-Cig and/or Vaping dev: No Substance use?: No Alcohol Use?: No Pt feels they are or have been: No Immunizations Up To Date Tetanus Booster (TDap): Unknown First/Initial COVID19 Vaccinat: N/A Second COVID19 Vaccination Phil: N/A Third COVID19 Vaccination Date: N/A Seasonal Allergies Seasonal Allergies: No Past Medical History Surgery/Hospitalization HX: anxiety Surgeries: Yes (Aneurysm repair in the neck) Section, Tubal Ligation Respiratory: No Cardiac: No Neurological: No 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 0oz. [id number]; 40.00 BMI Method:Stated General Appearance: Anxious, Obese HEENT: PERRL/EOMI, Pharynx Normal, Moist Mucous Membranes Neck: Full Range of Motion, Normal Inspection, Non Tender, Supple Respiratory: Chest Non Tender, Lungs Clear, Normal Breath Sounds, No Accessory Muscle Use, No Respiratory Distress Cardiovascular: Regular Rate, Rhythm, No Murmur, Normal Peripheral Pulses Gastrointestinal: Normal Bowel Sounds, No Pulsatile Mass, Soft; No Distended, No Guarding, No Rebound; Tenderness (diffuse pain but worse on right side of abdomen) Rectal: Deferred Back: No CVA Tenderness Extremity: Normal Capillary Refill, Normal Inspection, No Calf Tenderness, No Pedal Edema Neurologic/Psychiatric: Alert, 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, 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 Norm as Tested Skin: Normal Color, Warm/Dry; No Rash Focused Exam Lactate Level 12/14/21 23:30: Lactic Acid Level 1.07 Lactic Acid Level Laboratory Tests Test 12/14/21 23:30 Lactic Acid Level 1.07 MMOL/L (0.50-2.00) Progress/Results/Core Measures Suspected Sepsis SIRS Temperature: Pulse: Respiratory Rate: Laboratory Tests 12/14/21 23:30: White Blood Count 9.0 Blood Pressure / Mean: 12/14/21 23:30: Lactic Acid Level 1.07 Laboratory Tests 12/14/21 23:30: Creatinine 0.70, INR Comment 1.0, Platelet Count 245, Total Bilirubin 0.2 Results/Orders Lab Results Laboratory Tests Test 12/14/21 23:30 12/14/21 23:45 Range/Units White Blood Count 9.0 4.3-11.0 10^3/uL Red Blood Count 4.37 3.80-5.11 10^6/uL Hemoglobin 10.7 L 11.5-16.0 g/dL Hematocrit 35 35-52 % Mean Corpuscular Volume 80 80-99 fL Mean Corpuscular Hemoglobin 24 L 25-34 pg Mean Corpuscular Hemoglobin Concent 31 L 32-36 g/dL Red Cell Distribution Width 15.9 H 10.0-14.5 % Platelet Count 245 130-400 10^3/uL Mean Platelet Volume 11.2 9.0-12.2 fL Immature Granulocyte % (Auto) 0 % Neutrophils (%) (Auto) 73 42-75 % Lymphocytes (%) (Auto) 20 12-44 % Monocytes (%) (Auto) 6 0-12 % Eosinophils (%) (Auto) 2 0-10 % Basophils (%) (Auto) 0 0-10 % Neutrophils # (Auto) 6.6 1.8-7.8 X 10^3 Lymphocytes # (Auto) 1.8 1.0-4.0 X 10^3 Monocytes # (Auto) 0.5 0.0-1.0 X 10^3 Eosinophils # (Auto) 0.1 0.0-0.3 10^3/uL Basophils # (Auto) 0.0 0.0-0.1 10^3/uL Immature Granulocyte # (Auto) 0.0 0.0-0.1 10^3/uL Prothrombin Time 13.9 12.2-14.7 SEC INR Comment 1.0 0.8-1.4 Activated Partial Thromboplast Time 30 24-35 SEC Sodium Level 137 135-145 MMOL/L Potassium Level 3.5 L 3.6-5.0 MMOL/L Chloride Level 102 98-107 MMOL/L Carbon Dioxide Level 21 21-32 MMOL/L Anion Gap 14 5-14 MMOL/L Blood Urea Nitrogen 12 7-18 MG/DL Creatinine 0.70 0.60-1.30 MG/DL Estimat Glomerular Filtration Rate 112 BUN/Creatinine Ratio 17 Glucose Level 104 70-105 MG/DL Lactic Acid Level 1.07 0.50-2.00 MMOL/L Calcium Level 9.2 8.5-10.1 MG/DL Corrected Calcium 9.4 8.5-10.1 MG/DL Total Bilirubin 0.2 0.1-1.0 MG/DL Aspartate Amino Transf (AST/SGOT) 11 5-34 U/L Alanine Aminotransferase (ALT/SGPT) 12 0-55 U/L Alkaline Phosphatase 53 40-136 U/L Troponin I < 0.30 <0.30 NG/ML C-Reactive Protein 1.02 H <0.50 MG/DL Total Protein 7.1 6.4-8.2 GM/DL Albumin 3.8 3.2-4.5 GM/DL Lipase 18 8-78 U/L Urine Color YELLOW Urine Clarity CLEAR Urine pH 6.0 5-9 Urine Specific Oley 1.025 H 1.016-1.022 Urine Protein NEGATIVE NEGATIVE Urine Glucose (UA) NEGATIVE NEGATIVE Urine Ketones 1+ H NEGATIVE Urine Nitrite NEGATIVE NEGATIVE Urine Bilirubin NEGATIVE NEGATIVE Urine Urobilinogen 0.2 < = 1.0 MG/DL Urine Leukocyte Esterase NEGATIVE NEGATIVE Urine RBC (Auto) NEGATIVE NEGATIVE Urine RBC 5-10 H /HPF Urine WBC NONE /HPF Urine Squamous Epithelial Cells 2-5 /HPF Urine Crystals NONE /LPF Urine Bacteria TRACE /HPF Urine Casts NONE /LPF Urine Mucus LARGE H /LPF Urine Culture Indicated NO Urine Test NEGATIVE NEGATIVE My Orders Orders - PINKY PHILLIPS MD Monitor-Rhythm Ecg Trace Only (12/14/21 23:01) Ed Iv/Invasive Line Start (12/14/21 23:) Hcg,Qualitative Urine (12/14/21:) Cbc With Automated Diff (12/14/21:) Comprehensive Metabolic Panel (12/14/21:) Crp Fs (12/14/21:) Troponin I Fs (12/14/21:) Protime With Inr (12/14/21:) Partial Thromboplastin Time (12/14/21 23:) Ns Iv 1000 Ml (Sodium Chloride 0.9%) (12/14/21 23:15) Blood Culture (12/14/21 23:) Ct Abdomen/Pelvis W (12/14/21 23:) Lipase (12/14/21:) Ua Culture If Indicated (12/14/21:) Lactic Acid Analyzer (12/14/21:) Iohexol Injection (Omnipaque 350 Mg/Ml 1 (12/14/21 23:15) Received Contrast (Hold Metformin- Contr (12/14/21 23:15) Sodium Chloride Flush (Catheter Flush Sy (12/14/21 23:15) Ns (Ivpb) (Sodium Chloride 0.9% Ivpb Bag (12/14/21 23:15) Iohexol Injection (Omnipaque 350 Mg/Ml 1 (12/15/21 00:15) Medications Given in ED Current Medications Medications Dose Ordered Sig/Eddie Route Start Time Stop Time Status Last Admin Dose Admin Sodium Chloride 10 ml NEEDED PRN IV 12/14/21 23:15 12/15/21 00:06 10 ML Sodium Chloride 100 ml ONCE ONCE IV 12/14/21 23:15 12/14/21 23:16 DC 12/15/21 00:06 100 ML Vital Signs/I&O 12/14/21 12/15/21 12/15/21 22:45 00:00 01:30 Temp 36.4 Pulse 87 53 58 Resp 16 17 18 B/P (MAP) 152/88 (109) 122/69 122/68 Pulse Ox 98 97 97 O2 Delivery Room Air Room Air Room Air Capillary Refill : Progress Note #1: Progress Note Will recheck labs and cultures yet again to see if there is anything new or different from the last time that they were checked in the emergency department. We will add on a CT scan of the abdomen and pelvis to see if there is signs of obstruction or blockage. Progress Note #2: Progress Note Labs are all stable without acute significant abnormality to indicate a reason for her complaints or symptoms. Her lactic acid is normal. Her urinalysis is not showing signs of infection. Her CT scan came back showing very small hiatal hernia without acute findings otherwise. She did have a 1.7 cm left adrenal adenoma. Will recommend follow-up through her regular doctor and may need repeat imaging in 6 to 12 months to look for stability of this. Will continue with Phenergan for nausea and vomiting. Encourage fluids hydration. Continue to work with primary doctor and may need EGD and/or colonoscopy for further work-up. Will give name and office number for Dr. Kennedy with surgery. Currently she does not have electrolyte imbalance or lab abormality to indicate severe dehydration, intractable n/v, give reason for admit. Will need to continued work up as outpatient but advised she may need to check with Dr. Kennedy or if she worsens over the weekend she may even need to go to [facility] for evaluation and possible admit with surgery evaluation for her symptoms. Ultimately biopsy of stomach and colon may be necessary to determine her issues. Diagnostic Imaging Diagonstic Imaging: CT Plain Films/CT/US/NM/MRI: abdomen, pelvis Comments Impression 1. Very small hiatal hernia. No acute findings. 2. 1.7 cm left adrenal adenoma. Read by Dr. Douglas Malone MD at 0017 and faxed at [phone] Reviewed: Reviewed [place] Study, Reviewed by Me Departure Impression Primary Impression: Nausea vomiting and diarrhea Additional Impressions: Right sided abdominal pain Hiatal hernia Adenoma of left adrenal gland Disposition: HOME, SELF-CARE Condition: Stable Departure-Patient Inst. Decision time for Depature: 01:14 Referrals: CHUN BUTTERFIELD MD (PCP) Primary Care Physician NELDA MARSH APRN (Family) Primary Care Physician Patient Instructions: Abdominal Pain, Adult ED, Diarrhea, Adult ED, Incidental Findings, Nausea and Vomiting, Adult ED Add. Discharge Instructions: Use the nausea medicine to help control your nausea and vomiting. Follow up with your provider in clinic and check with surgeon as you may also need to have a scope of your stomach and/or colon for continued symptoms/concerns. Follow up with your primary care provider in clinic about your incidental finding on CT scan. They usually will repeat CT scan at 6 months or a year to see if there is any change in size of the adrenal gland. All discharge instructions reviewed with patient and/or family. Voiced understanding. Scripts Promethazine HCl (Promethazine Tablet) 25 Mg Tablet 25 MG PO Q8H PRN for NAUSEA/VOMITING for 5 Days, #14 TAB 0 Refills Prov: PINKY PHILLIPS MD 12/15/21 PINKY PHILLIPS MD Dec 14, 2021 23:10
[2021-12-14] MEDS ORDERED: NS IV 1000 ML 1,000 ML IV SCH (23:15)
[2021-12-14] MEDS ORDERED: IOHEXOL 350 MG/ML 100 ML (OMNIPAQUE 350) VIAL IV ONE (23:15)
[2021-12-14] MEDS ORDERED: HOLD METFORMIN - RECEIVED CONTRAST 20 ML VIAL IV SCH (23:15)
[2021-12-14] MEDS ORDERED: CATHETER FLUSH 10 ML SYR IV PRN (23:15)
[2021-12-14] MEDS ORDERED: NS 100 ML (IVPB) BAG IV ONE (23:15)
[2021-12-14 23:44] LABS: HEMATOCRIT 35 % (35-52); HEMOGLOBIN 10.7 g/dL (11.5-16.0); MEAN CORPUSCULAR HEMOGLOBIN 24 pg (25-34); MEAN CORPUSCULAR HGB CONC 31 g/dL (32-36); MEAN CORPUSCULAR VOLUME 80 fL (80-99)
[2021-12-14 23:45] LABS: BASOPHILS % (AUTO) 0 % (0-10); EOSINOPHILS # (AUTO) 0.1 10^3/uL (0.0-0.3); EOSINOPHILS % (AUTO) 2 % (0-10); LYMPHOCYTES # (AUTO) 1.8 X 10^3 (1.0-4.0); LYMPHOCYTES % (AUTO) 20 % (12-44); MEAN PLATELET VOLUME 11.2 fL (9.0-12.2); MONOCYTES # (AUTO) 0.5 X 10^3 (0.0-1.0); MONOCYTES % (AUTO) 6 % (0-12); NEUTROPHILS # (AUTO) 6.6 X 10^3 (1.8-7.8); NEUTROPHILS % (AUTO) 73 % (42-75); PLATELET COUNT 245 10^3/uL (130-400)
[2021-12-14 23:54] LABS: CLARITY,URINE CLEAR; COLOR,URINE YELLOW
[2021-12-14 23:55] LABS: BACTERIA,URINE TRACE /HPF; BILIRUBIN,URINE NEGATIVE (NEGATIVE); GLUCOSE, URINE (UA) NEGATIVE (NEGATIVE); HCG,QUALITATIVE URINE NEGATIVE (NEGATIVE); KETONES,URINE 1+ (NEGATIVE); LEUKOCYTE ESTERASE ,URINE NEGATIVE (NEGATIVE); NITRITE,URINE NEGATIVE (NEGATIVE); PROTEIN,URINE NEGATIVE (NEGATIVE)
[2021-12-14 23:56] LABS: PROTHROMBIN TIME PATIENT 13.9 SEC (12.2-14.7)
[2021-12-15 00:05] LABS: CARBON DIOXIDE 21 MMOL/L (21-32); CHLORIDE 102 MMOL/L (98-107); POTASSIUM 3.5 MMOL/L (3.6-5.0); SODIUM 137 MMOL/L (135-145)
[2021-12-15 00:06] LABS: ALANINE AMINOTRANSFERASE 12 U/L (0-55); ALBUMIN 3.8 GM/DL (3.2-4.5); ALKALINE PHOSPHATASE 53 U/L (40-136); BILIRUBIN,TOTAL 0.2 MG/DL (0.1-1.0); BUN/CREATININE RATIO 17; CALCIUM 9.2 MG/DL (8.5-10.1); GFR ESTIMATED 112; GLUCOSE 104 MG/DL (70-105); TOTAL PROTEIN 7.1 GM/DL (6.4-8.2)
[2021-12-15] MEDS ORDERED: IOHEXOL 350 MG/ML 150 ML (OMNIPAQUE 350) VIAL IV ONE (00:15)
[2021-12-15] MEDS ORDERED: PROM25TA14 PO (01:21)
--- NOTE | 2021-12-15 07:14 | Diagnostic Imaging Report ---
PROCEDURE: CT abdomen and pelvis with contrast. TECHNIQUE: Multiple contiguous axial images were obtained through the abdomen and pelvis after administration of intravenous contrast. Auto Exposure Controls were utilized during the CT exam to meet ALARA standards for radiation dose reduction. All CT scans use one or more of the following dose optimizing techniques: automated exposure control, MA and/or KvP adjustment based on patient size and exam type or iterative reconstruction. INDICATION: Right abdominal pain with nausea, emesis, diarrhea and fever. COMPARISON: 03/07/2019 There is mild low-density in the liver however no focal hepatic, gallbladder, pancreatic or splenic abnormality is seen. Rounded density in the stomach lumen may represent ingested tablet. There is an approximately 1.7 cm solid-appearing nodule in the left adrenal gland. This was present on the previous study but is slightly larger on the current exam. There is no free fluid seen within the abdomen or pelvis. No pathologically enlarged adenopathy is seen. Partially opacified urinary bladder is unremarkable. IMPRESSION: No evidence of acute abnormality. 1.7 cm left adrenal gland nodule is nonspecific. This may represent adrenal gland adenoma. Clinical correlation would be useful. This could be further evaluated on followup study in 12 months or adrenal protocol MRI if indicated. Dictated by: Dictated on workstation # [id number]
== END 2021-12-15 01:45 | disposition home or self-care (01) ==
LOC: EDUNIT# 22:41 → ER FS 22:42
DX: K44.9 Diaphragmatic hernia without obstruction or gangrene (principal); D35.02 Benign neoplasm of left adrenal gland; F41.9 Anxiety disorder, unspecified; Z79.899 Other long term (current) drug therapy
CPT/HCPCS: 36415; 74177; 80053; 81000; 83605; 83690; 84484; 84703; 85025; 85610; 85730; 86141; 87040; 93041

== ENCOUNTER 2021-12-19 08:31 | Outpatient (CLI) | payer MEDICAID ==
[~2021-12-19] VITALS: Ht 183 cm; Wt 130.0 kg
[~2021-12-19 08:31] MED LIST changes: +PROM25TA14 PO
[2021-12-19] MEDS ORDERED: TURM500C4 PO (12:49)
[2021-12-19] MEDS ORDERED: OMEP-401 PO (12:49)
[2021-12-19] MEDS ORDERED: MULT-1136 PO (12:49)
[2021-12-19] MEDS ORDERED: CETI10TA17 PO (12:49)
== END 2021-12-19 14:41 | disposition home or self-care (01) ==
LOC: PREOP 08:31
PROVIDERS: ATTEND Surgery
DX: Z01.818 Encounter for other preprocedural examination (principal)

== ENCOUNTER 2021-12-22 21:21 | Emergency (ER) | payer MEDICAID ==
[~2021-12-22] VITALS: Ht 183 cm; Wt 130.0 kg
[~2021-12-22 21:21] MED LIST changes: +CETI10TA17 PO; +MULT-1136 PO; +OMEP-401 PO; +TURM500C4 PO
--- NOTE | 2021-12-22 22:00 | ED General ---
General Chief Complaint: Cardiac/General Problems Stated Complaint: BRADYCARDIA, URGENT CARE SENT OVER Source of Information: Patient History of Present Illness Date Seen by Provider: Dec 22, 2021 Time Seen by Provider: 21:40 Initial Comments PT ARRIVES VIA POV--STATES SHE WAS SENT HERE FROM URGENT CARE PT STATES SHE TESTED + FOR COVID-19 YESTERDAY--WAS HAVING BODY ACHES AND HEADACHE, THOSE SYMPTOMS ARE BETTER TODAY. WENT TO THE WALK IN CLINIC IN [place] YESTERDAY AND WAS TESTED. NO RX'S GIVEN. DAUGHTER TESTED + FOR COVID-19 THIS WEEK WELL. SHE HAS ALSO BEEN HAVING OTHER SYMPTOMS SINCE THE END OF NOVEMBER--GI SYMPTOMS PLUS REPORTED FEVER OF 102.7. FELT A LITTLE DIZZY TODAY, CHECKED HER OXYGEN AND IT WAS FINE, BUT HER PULSE WAS IN THE 50'S-60, SO WENT TO URGENT CARE, WHO TOLD HER TO COME HERE PT DOES NOT FEEL DIZZY NOW, STATES SHE FEELS FINE NO CHEST PAIN NO SHORTNESS OF BREATH NO DIZZINESS AT THIS TIME NO SYNCOPE NO PALPITATIONS NO SWEATS PT IS VERY ANXIOUS AND IS AFRAID TO GO TO SLEEP BECAUSE SHE IS AFRAID SHE WON'T WAKE UP AND WILL IN HER SLEEP--THIS IS A PERSISTENT ANXIOUS FEAR FOR PT, AND SHE HAS VOICED THIS SAME FEAR ON PRIOR VISITS. PT WITH A MULTITUDE OF VISITS, 10 VISITS HERE AND [place] [facility] SINCE 06/12/21-- VARIOUS COMPLAINTS, BUT MANY FOR ANXIETY AND CHEST PAIN COMPLAINTS--CARDIAC WORK UP'S HAVE BEEN NEGATIVE. LAST VISIT WAS 12/14/21 AT [place] [facility] FOR GI SYMPTOMS AND FEVER--PULSE WAS IN THE 50'S AT THAT VISIT . GI WORK UP WAS NEGATIVE, PT WAS NOT TESTED FOR COVID-19 AT THAT VISIT. PT HAS NOT HAD COVID-19 OR FLU VACCINES PT IS ALSO VERY ANXIOUS BECAUSE A FRIEND OF HERS OF COVID-19 INFECTION IN OCTOBER 2021. PCP: DR. BUTTERFIELD / [facility] Allergies and Home Medications Allergies Coded Allergies: azithromycin (Verified Allergy, Unknown, 03/06/19) fexofenadine (Verified Allergy, Unknown, 03/06/19) albuterol (Verified Adverse Reaction, Severe, 11/12/21) Jittery and anxious, heart pounding Patient Home Medication List Home Medication List Reviewed: Yes Cetirizine HCl (Cetirizine HCl) 10 Mg Tablet, 10 MG PO DAILY, (Reported) Entered as Reported by: BILL MACIAS on 12/19/21 1249 Multivitamin (Multivitamin) 1 Each Tablet, 1 EACH PO DAILY, (Reported) Entered as Reported by: BILL MACIAS on 12/19/21 1249 Omeprazole (Omeprazole) 20 Mg Tab.rap.dr, 20 MG PO DAILY, (Reported) Entered as Reported by: BILL MACIAS on 12/19/21 1249 Ondansetron (Ondansetron Odt) 4 Mg Tab.rapdis, 4 MG PO Q6H PRN for NAUSEA/VOMITING Prescribed by: PINKY PHILLIPS on 12/02/21 1309 Turmeric/Turmeric Root Extract (Turmeric 500 mg Capsule) 1 Each Capsule, 2 EACH PO DAILY, (Reported) Entered as Reported by: BILL MACIAS on 12/19/21 1249 Discontinued Medications Famotidine (Pepcid) 20 Mg Tablet, 20 MG PO BID Discontinued Reason: No Longer Taking Prescribed by: RUDDY KAY on 09/26/19 1154 Lorazepam (Ativan) 0.5 Mg Tablet, 0.5 MG PO TID PRN for ANXIETY Discontinued Reason: No Longer Taking Prescribed by: GREGORY ZIMMERMAN on 11/13/21 0056 Prednisone (Prednisone) 20 Mg Tab, 40 MG PO DAILY Discontinued Reason: No Longer Taking Prescribed by: PINKY PHILLIPS on 11/12/21 0805 Promethazine HCl (Promethazine Tablet) 25 Mg Tablet, 25 MG PO Q8H PRN for NAUSEA/VOMITING Discontinued Reason: No Longer Taking Prescribed by: PINKY PHILLIPS on 12/15/21 0121 Review of Systems Review of Systems Constitutional: see HPI EENTM: no symptoms reported Respiratory: no symptoms reported; No cough, No short of breath, No wheezing Cardiovascular: see HPI; No chest pain, No edema, No palpitations, No syncope, No vascular heart diseas Gastrointestinal: no symptoms reported Genitourinary: no symptoms reported Musculoskeletal: see HPI Skin: no symptoms reported Psychiatric/Neurological: See HPI, Anxiety Hematologic/Lymphatic: No Symptoms Reported Immunological/Allergic: no symptoms reported Past Zcdxeoy-Wqeezg-Ebrmao Hx Patient Social History Tobacco Use?: No Smoking Status: Never a Smoker Smokeless Tobacco Frequency: Never a User Use of E-Cig and/or Vaping Domo: Never a User Substance use?: No Alcohol Use?: Yes Alcohol type: Wine Alcohol Frequency: Once in a while Immunizations Up To Date Tetanus Booster (TDap): Unknown First/Initial COVID19 Vaccinat: N/A Second COVID19 Vaccination Phil: N/A Third COVID19 Vaccination Date: N/A Seasonal Allergies Seasonal Allergies: Yes Past Medical History Surgery/Hospitalization HX: anxiety Surgeries: Yes (Aneurysm repair in the neck) Section, Tubal Ligation Respiratory: No Cardiac: Yes ("ANEURYSM IN THE NECK" REPAIRED) Neurological: No : No Reproductive Disorders: No Female Reproductive Disorders: Denies 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 0oz. 108.834583bz; 38.81 BMI Method:Stated General Appearance: No Apparent Distress, WD/WN, Anxious, Obese Neck: Full Range of Motion, Normal Inspection, Non Tender, Supple Respiratory: Chest Non Tender, Normal Breath Sounds, No Accessory Muscle Use, No Respiratory Distress Cardiovascular: Regular Rate, Rhythm, No Edema, No JVD, No Murmur, Normal Peripheral Pulses, Other (HR 60 ON EXAM) Gastrointestinal: Non Tender, Soft Back: No CVA Tenderness Extremity: Normal Capillary Refill, Normal Inspection, Normal Range of Motion, Non Tender, No Calf Tenderness, No Pedal Edema Neurologic/Psychiatric: Alert, Oriented x3, No Motor/Sensory Deficits, 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 Norm as Tested, Other (VERY ANXIOUS) Progress/Results/Core Measures Suspected Sepsis SIRS Temperature: Pulse: Respiratory Rate: Laboratory Tests 12/22/21 22:02: White Blood Count 3.5L Blood Pressure / Mean: Laboratory Tests 12/22/21 22:02: Creatinine 0.71, Platelet Count 169, Total Bilirubin 0.2 Results/Orders Lab Results Laboratory Tests Test 12/22/21 22:02 Range/Units White Blood Count 3.5 L 4.3-11.0 10^3/uL Red Blood Count 4.25 3.80-5.11 10^6/uL Hemoglobin 10.5 L 11.5-16.0 g/dL Hematocrit 34 L 35-52 % Mean Corpuscular Volume 80 80-99 fL Mean Corpuscular Hemoglobin 25 25-34 pg Mean Corpuscular Hemoglobin Concent 31 L 32-36 g/dL Red Cell Distribution Width 15.9 H 10.0-14.5 % Platelet Count 169 130-400 10^3/uL Mean Platelet Volume 12.4 H 9.0-12.2 fL Immature Granulocyte % (Auto) 0 % Neutrophils (%) (Auto) 51 42-75 % Lymphocytes (%) (Auto) 34 12-44 % Monocytes (%) (Auto) 14 H 0-12 % Eosinophils (%) (Auto) 1 0-10 % Basophils (%) (Auto) 1 0-10 % Neutrophils # (Auto) 1.8 1.8-7.8 10^3/uL Lymphocytes # (Auto) 1.2 1.0-4.0 10^3/uL Monocytes # (Auto) 0.5 0.0-1.0 10^3/uL Eosinophils # (Auto) 0.0 0.0-0.3 10^3/uL Basophils # (Auto) 0.0 0.0-0.1 10^3/uL Immature Granulocyte # (Auto) 0.0 0.0-0.1 10^3/uL Erythrocyte Sedimentation Rate 29 H 0-20 MM/HR Sodium Level 139 135-145 MMOL/L Potassium Level 3.6 3.6-5.0 MMOL/L Chloride Level 106 98-107 MMOL/L Carbon Dioxide Level 19 L 21-32 MMOL/L Anion Gap 14 5-14 MMOL/L Blood Urea Nitrogen 10 7-18 MG/DL Creatinine 0.71 0.60-1.30 MG/DL Estimat Glomerular Filtration Rate 110 BUN/Creatinine Ratio 14 Glucose Level 89 70-105 MG/DL Calcium Level 8.7 8.5-10.1 MG/DL Corrected Calcium 8.9 8.5-10.1 MG/DL Magnesium Level 1.8 1.6-2.4 MG/DL Total Bilirubin 0.2 0.1-1.0 MG/DL Aspartate Amino Transf (AST/SGOT) 16 5-34 U/L Alanine Aminotransferase (ALT/SGPT) 11 0-55 U/L Alkaline Phosphatase 41 40-136 U/L Troponin I < 0.028 <0.028 NG/ML C-Reactive Protein High Sensitivity 0.87 H 0.00-0.50 MG/DL B-Type Natriuretic Peptide 25.3 <100.0 PG/ML Total Protein 6.9 6.4-8.2 GM/DL Albumin 3.8 3.2-4.5 GM/DL TSH Gallina Testing 0.54 0.35-4.94 UIU/ML My Orders Orders - GREGORY ZIMMERMAN DO Ed Iv/Invasive Line Start (12/22/21 21:44) Ekg Tracing (12/22/21 21:44) Monitor-Rhythm Ecg Trace Only (12/22/21 21:44) Bnp Isaiah (12/22/21 21:44) Cbc With Automated Diff (12/22/21 21:44) Comprehensive Metabolic Panel (12/22/21 21:44) Hs C Reactive Protein (12/22/21 21:44) Magnesium (12/22/21 21:44) Erythrocyte Sedimentation Rate (12/22/21 21:44) Troponin I [place] (12/22/21 21:44) Chest 1 View, Ap/Pa Only (12/22/21 21:44) Thyroid Analyzer (12/22/21 23:07) Vital Signs/I&O 12/22/21 12/22/21 21:33 23:21 Temp 36.0 36.0 Pulse 61 62 Resp 18 18 B/P (MAP) 137/81 (99) 128/82 Pulse Ox 99 100 O2 Delivery Room Air Room Air Capillary Refill : Progress Note : Progress Note UNEVENTFUL ER STAY NO DIZZINESS OR ANY OTHER SYMPTOMS IN ER NO HYPOXIA NO HYPOTENSION NO DYSPNEA HEART RATE 48-62 DURING ER STAY, REMAINED IN SINUS RHYTHM AT ALL TIMES REASSURANCE GIVEN TO PT ECG Initial ECG Impression Date: Dec 22, 2021 Initial ECG Impression Time: 21:48 Initial ECG Rate: 49 Initial ECG Rhythm: S.Joseluis Departure Communication (Admissions) 7970--SPOKE WITH DR. SHIELDS, BUNDLE PERSON, ADVISES TO SEND PT HOME AND HE WILL SEE IN OFFICE THIS COMING WEEK Impression Primary Impression: COVID-19 virus infection Additional Impressions: Bradycardia Anxiety Disposition: 01 HOME, SELF-CARE Condition: Stable Departure-Patient Inst. Decision time for Depature: 23:09 Referrals: CHUN BUTTERFIELD MD (PCP) Primary Care Physician NELDA MARSH APRN (Family) Primary Care Physician IESHA SHIELDS JR, MD Patient Instructions: COVID-19 ED, Bradycardia Add. Discharge Instructions: INCREASE YOUR FLUID INTAKE--LOTS OF CLEAR LIQUIDS TYLENOL AND MOTRIN NEEDED FOR PAIN OR FEVER FOLLOW UP WITH DR. SHIELDS, BUNDLE PERSON NEXT WEEK FOR FURTHER CARE, RETURN TO ER IF SYMPTOMS WORSEN All discharge instructions reviewed with patient and/or family. Voiced understanding. GREGORY ZIMMERMAN DO Dec 22, 2021 22:00
[2021-12-22 22:09] LABS: BASOPHILS % (AUTO) 1 % (0-10); EOSINOPHILS % (AUTO) 1 % (0-10); HEMATOCRIT 34 % (35-52); HEMOGLOBIN 10.5 g/dL (11.5-16.0); LYMPHOCYTES # (AUTO) 1.2 10^3/uL (1.0-4.0); LYMPHOCYTES % (AUTO) 34 % (12-44); MEAN CORPUSCULAR HEMOGLOBIN 25 pg (25-34); MEAN CORPUSCULAR HGB CONC 31 g/dL (32-36); MEAN CORPUSCULAR VOLUME 80 fL (80-99); MEAN PLATELET VOLUME 12.4 fL (9.0-12.2); MONOCYTES # (AUTO) 0.5 10^3/uL (0.0-1.0); MONOCYTES % (AUTO) 14 % (0-12); NEUTROPHILS # (AUTO) 1.8 10^3/uL (1.8-7.8); NEUTROPHILS % (AUTO) 51 % (42-75); PLATELET COUNT 169 10^3/uL (130-400); WHITE BLOOD COUNT 3.5 10^3/uL (4.3-11.0)
--- NOTE | 2021-12-22 22:18 | Diagnostic Imaging Report ---
EXAMINATION: Chest 1 view. HISTORY: Covid+. COMPARISON: 12/08/2021. FINDINGS: Heart size and pulmonary vasculature are normal. The lungs are clear without consolidation, pleural effusion or pneumothorax. The osseous structures are intact. IMPRESSION: No acute radiographic abnormality in the chest. Dictated by: Dictated on workstation # [id number]
[2021-12-22 22:27] LABS: ALBUMIN 3.8 GM/DL (3.2-4.5); CHLORIDE 106 MMOL/L (98-107); POTASSIUM 3.6 MMOL/L (3.6-5.0); SODIUM 139 MMOL/L (135-145)
[2021-12-22 22:29] LABS: CALCIUM 8.7 MG/DL (8.5-10.1)
[2021-12-22 22:30] LABS: ERYTHROCYTE SEDIMENTATION RATE 29 MM/HR (0-20); GLUCOSE 89 MG/DL (70-105); TOTAL PROTEIN 6.9 GM/DL (6.4-8.2)
[2021-12-22 22:31] LABS: CARBON DIOXIDE 19 MMOL/L (21-32)
[2021-12-22 22:32] LABS: BILIRUBIN,TOTAL 0.2 MG/DL (0.1-1.0)
[2021-12-22 22:33] LABS: ALKALINE PHOSPHATASE 41 U/L (40-136)
[2021-12-22 22:34] LABS: CREATININE SERUM 0.71 MG/DL (0.60-1.30); GFR ESTIMATED 110
[2021-12-22 22:35] LABS: BUN/CREATININE RATIO 14
[2021-12-22 22:36] LABS: ALANINE AMINOTRANSFERASE 11 U/L (0-55); MAGNESIUM 1.8 MG/DL (1.6-2.4)
[2021-12-22 23:21] VITALS: BP 128/82
== END 2021-12-22 23:22 | disposition home or self-care (01) ==
LOC: EDUNIT# 21:21 → ER 21:26
DX: U07.1 COVID-19 (principal); R00.1 Bradycardia, unspecified; F41.9 Anxiety disorder, unspecified; K21.9 Gastro-esophageal reflux disease without esophagitis; E66.9 Obesity, unspecified; Z68.38 Body mass index [BMI] 38.0-38.9, adult; Z79.899 Other long term (current) drug therapy; Z73.0 Burn-out
CPT/HCPCS: 36415; 71045; 80053; 83735; 83880; 84443; 84484; 85025; 85652; 86141; 93005; 93041

== ENCOUNTER 2022-01-02 01:38 | Emergency (ER) | payer MEDICAID ==
[~2022-01-02] VITALS: Ht 182 cm; Wt 131.0 kg
[2022-01-02 02:28] LABS: BASOPHILS % (AUTO) 0 % (0-10); EOSINOPHILS % (AUTO) 0 % (0-10); HEMATOCRIT 35 % (35-52); HEMOGLOBIN 10.9 g/dL (11.5-16.0); LYMPHOCYTES # (AUTO) 1.4 10^3/uL (1.0-4.0); LYMPHOCYTES % (AUTO) 14 % (12-44); MEAN CORPUSCULAR HEMOGLOBIN 24 pg (25-34); MEAN CORPUSCULAR HGB CONC 31 g/dL (32-36); MEAN CORPUSCULAR VOLUME 78 fL (80-99); MEAN PLATELET VOLUME 11.8 fL (9.0-12.2); MONOCYTES # (AUTO) 0.6 10^3/uL (0.0-1.0); MONOCYTES % (AUTO) 5 % (0-12); NEUTROPHILS # (AUTO) 8.3 10^3/uL (1.8-7.8); NEUTROPHILS % (AUTO) 80 % (42-75); PLATELET COUNT 228 10^3/uL (130-400); WHITE BLOOD COUNT 10.3 10^3/uL (4.3-11.0)
--- NOTE | 2022-01-02 02:29 | ED General ---
General Chief Complaint: Respiratory Problems Stated Complaint: TROUBLE BREATHING/LOW SAO2 History of Present Illness Date Seen by Provider: Jan 02, 2022 Time Seen by Provider: 01:48 Initial Comments 41 yr F who was diagnosed COVID positive on Dec 21, is here with c/o noticing oxygen desaturation on her iwatch, which showed her O2 saturation was 87%. Pt denied feeling SOB at the time, but she was concerned so she came to the ER. Pt is currently on a Holtor monitor, the reason being, she was taken off of Lamictal and she developed asymptomatic bradycardia. Pt stated that her congregational care pastor told her if she is feeling fine, not to worry about it. Today she was just cincerned because of her watch O2 sat readings. Pt denies chest pain, SOB, palpitations, dizziness, abdominal pain, diarrhea, fever. Allergies and Home Medications Allergies Coded Allergies: azithromycin (Verified Allergy, Unknown, 01/02/22) fexofenadine (Verified Allergy, Unknown, 01/02/22) albuterol (Verified Adverse Reaction, Severe, 01/02/22) Jittery and anxious, heart pounding Patient Home Medication List Home Medication List Reviewed: Yes Cetirizine HCl (Cetirizine HCl) 10 Mg Tablet, 10 MG PO DAILY, (Reported) Entered as Reported by: BILL MACIAS on 12/19/21 1249 Multivitamin (Multivitamin) 1 Each Tablet, 1 EACH PO DAILY, (Reported) Entered as Reported by: BILL MACISA on 12/19/21 1249 Omeprazole (Omeprazole) 20 Mg Tab.rap.dr, 20 MG PO DAILY, (Reported) Entered as Reported by: BILL MACIAS on 12/19/21 1249 Ondansetron (Ondansetron Odt) 4 Mg Tab.rapdis, 4 MG PO Q6H PRN for NAUSEA /VOMITING Prescribed by: PINKY PHILLIPS on 12/02/21 1309 Turmeric/Turmeric Root Extract (Turmeric 500 mg Capsule) 1 Each Capsule, 2 EACH PO DAILY, (Reported) Entered as Reported by: BILL MACIAS on 12/19/21 1249 Review of Systems Review of Systems Constitutional: other (self concern for O2 sat) EENTM: no symptoms reported Respiratory: no symptoms reported Cardiovascular: no symptoms reported Gastrointestinal: no symptoms reported Genitourinary: no symptoms reported Musculoskeletal: no symptoms reported Skin: no symptoms reported Psychiatric/Neurological: No Symptoms Reported Hematologic/Lymphatic: No Symptoms Reported Immunological/Allergic: no symptoms reported Past Jksvbxq-Imthpv-Oqyrik Hx Patient Social History Tobacco Use?: No Use of E-Cig and/or Vaping dev: No Substance use?: No Alcohol Use?: No Pt feels they are or have been: No Immunizations Up To Date Tetanus Booster (TDap): Unknown First/Initial COVID19 Vaccinat: N/A Second COVID19 Vaccination Phil: N/A Third COVID19 Vaccination Date: N/A Seasonal Allergies Seasonal Allergies: Yes Past Medical History Surgery/Hospitalization HX: anxiety Surgeries: Yes (Aneurysm repair in the neck) Section, Tubal Ligation Respiratory: No Cardiac: Yes ("ANEURYSM IN THE NECK" REPAIRED) Neurological: No Last Menstrual Period: Dec 19, 2021 Reproductive Disorders: No Female Reproductive Disorders: Denies 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 0oz. [id number]; 39.00 BMI Method:Stated General Appearance: No Apparent Distress HEENT: PERRL/EOMI Neck: Normal Inspection, Supple Respiratory: Chest Non Tender, Lungs Clear, Normal Breath Sounds, No Accessory Muscle Use, No Respiratory Distress Cardiovascular: No Edema, No Murmur, Bradycardia Gastrointestinal: Normal Bowel Sounds, No Organomegaly, No Pulsatile Mass, Non Tender, Soft Extremity: Normal Capillary Refill Neurologic/Psychiatric: Alert, Oriented x3, No Motor/Sensory Deficits, Normal Mood/Affect Skin: Normal Color Progress/Results/Core Measures Suspected Sepsis SIRS Temperature: Pulse: 46 Respiratory Rate: 14 Laboratory Tests 01/02/22 02:18: White Blood Count 10.3 Blood Pressure 140 /85 Mean: 103 Laboratory Tests 01/02/22 02:18: Creatinine 0.63, Platelet Count 228, Total Bilirubin 0.2 Results/Orders Lab Results Laboratory Tests Test 01/02/22 02:18 Range/Units White Blood Count 10.3 4.3-11.0 10^3/uL Red Blood Count 4.54 3.80-5.11 10^6/uL Hemoglobin 10.9 L 11.5-16.0 g/dL Hematocrit 35 35-52 % Mean Corpuscular Volume 78 L 80-99 fL Mean Corpuscular Hemoglobin 24 L 25-34 pg Mean Corpuscular Hemoglobin Concent 31 L 32-36 g/dL Red Cell Distribution Width 15.9 H 10.0-14.5 % Platelet Count 228 130-400 10^3/uL Mean Platelet Volume 11.8 9.0-12.2 fL Immature Granulocyte % (Auto) 0 % Neutrophils (%) (Auto) 80 H 42-75 % Lymphocytes (%) (Auto) 14 12-44 % Monocytes (%) (Auto) 5 0-12 % Eosinophils (%) (Auto) 0 0-10 % Basophils (%) (Auto) 0 0-10 % Neutrophils # (Auto) 8.3 H 1.8-7.8 10^3/uL Lymphocytes # (Auto) 1.4 1.0-4.0 10^3/uL Monocytes # (Auto) 0.6 0.0-1.0 10^3/uL Eosinophils # (Auto) 0.0 0.0-0.3 10^3/uL Basophils # (Auto) 0.0 0.0-0.1 10^3/uL Immature Granulocyte # (Auto) 0.0 0.0-0.1 10^3/uL D-Dimer 0.47 0.00-0.49 UG/ML Sodium Level 139 135-145 MMOL/L Potassium Level 4.0 3.6-5.0 MMOL/L Chloride Level 104 98-107 MMOL/L Carbon Dioxide Level 22 21-32 MMOL/L Anion Gap 13 5-14 MMOL/L Blood Urea Nitrogen 20 H 7-18 MG/DL Creatinine 0.63 0.60-1.30 MG/DL Estimat Glomerular Filtration Rate 115 BUN/Creatinine Ratio 32 Glucose Level 136 H 70-105 MG/DL Calcium Level 9.1 8.5-10.1 MG/DL Corrected Calcium 9.0 8.5-10.1 MG/DL Total Bilirubin 0.2 0.1-1.0 MG/DL Aspartate Amino Transf (AST/SGOT) 28 5-34 U/L Alanine Aminotransferase (ALT/SGPT) 47 0-55 U/L Alkaline Phosphatase 52 40-136 U/L Troponin I < 0.30 <0.30 NG/ML Total Protein 7.0 6.4-8.2 GM/DL Albumin 4.1 3.2-4.5 GM/DL My Orders Orders - IVANNA LYNN MD Chest Pa/Lat (2 View) (01/02/22 02:02) Cbc With Automated Diff (01/02/22 02:02) Comprehensive Metabolic Panel (01/02/22 02:02) Troponin I Fs (01/02/22 02:02) Ed Iv/Invasive Line Start (01/02/22 02:21) Ekg Tracing (01/02/22 02:22) Fibrin Degradation Products (01/02/22 03:09) Vital Signs/I&O 01/02/22 01/02/22 01:47 01:47 Temp 36.3 Pulse 46 Resp 14 B/P (MAP) 140/85 (103) Pulse Ox 98 O2 Delivery Room Air Room Air Capillary Refill : Less Than 3 Seconds Blood Pressure Mean: 103 Progress Note : Progress Note 1. ASYMPTOMATIC BRADYCARDIA: - O2 sat in ER is above 95% at all times. Explained to pt that iwatch reading may not be entirely accurate, as shown to her that ER read is 99% and simultaneous watch read was 93% on room air. Pt is not SOB at any time. - CXR:normal - D-dimer: normal - CBC/ CMP: normal - Troponin/ EKG: unremarkable - Pt has holtor monitor check on January 08, with clinic appointment. The patient was seen in the ED, and treated appropriately to presentation at a specific point in time. Patient is informed that there is a possibility that disease and illness can evolve and change in acuity rapidly or slowly after patient is discharged from the ER. Precautionary advice given to the patient for immediate return to ER if symptoms worsen or do not resolve, and to seek emergency care sooner rather than later. Pt also advised on the importance of PCP follow up and compliance with management and follow up plan. Pt verbally expressed understanding. 2. SEVERE ANXIETY: - I have had an in depth discussion with pt's . He states that pt has had over 17 ER visits in one month for the similar things, and it will always be in the middle of the night, and it is all anxiety. states it is tearing apart their marriage and she will not see a psychiatrist or allow him to talk to her PCP about her anxiety. Anxiety was triggered by her grandmother's and then a close friend's 2 days after that. also thinks she needs to be assessed for possible BPD> - I have talked to the pt regarding anxiety manifesting as SOB or chest pain, etc. Pt understands. I have explained to her that she should follow up with her PCP and get a Psych appointment to help her manage her anxiety Diagnostic Imaging Diagonstic Imaging: Xray Plain Films/CT/US/NM/MRI: chest Departure Impression Primary Impression: Chronic sinus bradycardia Additional Impression: Acute anxiety Disposition: 01 HOME, SELF-CARE Condition: Stable Departure-Patient Inst. Referrals: CHUN BUTTERFIELD MD (PCP) Primary Care Physician NELDA MARSH APRN (Family) Primary Care Physician Patient Instructions: Bradycardia (DC) Add. Discharge Instructions: ASYMPTOMATIC BRADYCARDIA F/u with PCP Return to ER if changes to symptomatic All discharge instructions reviewed with patient and/or family. Voiced understanding. IVANNA LYNN MD Jan 02, 2022 02:29
[2022-01-02 02:49] LABS: CARBON DIOXIDE 22 MMOL/L (21-32); CHLORIDE 104 MMOL/L (98-107); SODIUM 139 MMOL/L (135-145)
[2022-01-02 02:50] LABS: ALANINE AMINOTRANSFERASE 47 U/L (0-55); ALBUMIN 4.1 GM/DL (3.2-4.5); ALKALINE PHOSPHATASE 52 U/L (40-136); BILIRUBIN,TOTAL 0.2 MG/DL (0.1-1.0); BUN/CREATININE RATIO 32; CALCIUM 9.1 MG/DL (8.5-10.1); CREATININE SERUM 0.63 MG/DL (0.60-1.30); GFR ESTIMATED 115; GLUCOSE 136 MG/DL (70-105)
[2022-01-02 04:08] VITALS: BP 149/78
--- NOTE | 2022-01-02 06:39 | Diagnostic Imaging Report ---
INDICATION: Shortness of breath COMPARISON: 11/10/2021 FINDINGS: Frontal and lateral views the chest demonstrate clear lungs bilaterally. The heart is normal. There is no pneumothorax but osseous structures normal. IMPRESSION: Negative chest. Dictated by: Dictated on workstation # [id number]
== END 2022-01-02 04:10 | disposition home or self-care (01) ==
LOC: EDUNIT# 01:38 → ER FS 01:42
DX: R00.1 Bradycardia, unspecified (principal); F41.9 Anxiety disorder, unspecified; Z86.16 Personal history of COVID-19
CPT/HCPCS: 36415; 71046; 80053; 84484; 85025; 85379; 93005

== ENCOUNTER 2022-01-17 06:20 | Emergency (ER) | payer MEDICAID ==
--- NOTE | 2022-01-17 06:55 | ED Chest Pain ---
General Chief Complaint: Chest Pain Stated Complaint: CP,NAUSEA,DIZZY,PALPITATIONS Source: patient Exam Limitations: no limitations (KAYLIN CARNES MED STUDENT) History of Present Illness Date Seen by Provider: Jan 17, 2022 Time Seen by Provider: 06:35 Initial Comments Patient presents to ED this am with complaints of nausea, chest pain, palpitations, dizziness, and fatigue. Reports that she felt fatigued all day yesterday and around 7pm began noticing chest fluttering, chest tightness, nausea, and burning in her throat. She says these symptoms lasted several hours and she was able to fall asleep around 1am til 4am. She awoke at 4am drenched in sweat, felt like her heart rate and BP were high, was nauseous, and felt dizzy. Describes the chest pain to be substernal and feels like she's being stabbed with an ice pick that radiates straight through to her back. She rates the pain at a 7/10 and says its pretty constant. She took some ibuprofen last yesterday without any relief of the pain. Denies fevers, chills, vomiting, diarrhea, dysuria, and blurry vision. Recently COVID positive on Dec 21. Being treated with augmentin for a sinus infection currently. She had been utilizing a pulse ox at home saying her HR was 120 then it was 50 just a minute later. She reports that these symptoms have been on going since her grandmother and friend in late October of 2021. She had seen a provider who prescribed her lamictal as a mood stabilizer but had only taken it for two weeks because it caused her to develop symptomatic bradycardia per her report. Recently had a holter monitor removed january 08 but hasn't been given the results yet. Follows with a plaster mechanic in [place] and was told she may have POTS. Reports having had every test possible with nothing being positive. She has not been taking any other meds aside from her daily prilosec for GERD. Timing/Duration: constant, 12 hours Severity/Quality: moderate, sharp Location: substernal Radiation: back Activities at Onset: none ASA po TOUR AGENT: No NTG SL TOUR AGENT: No Associated Symptoms: diaphoresis, dizziness, nausea/vomiting (KAYLIN CARNES MED STUDENT) Allergies and Home Medications Allergies Coded Allergies: azithromycin (Verified Allergy, Unknown, 2/23/22) fexofenadine (Verified Allergy, Unknown, 01/02/22) albuterol (Verified Adverse Reaction, Severe, 01/02/22) Jittery and anxious, heart pounding Patient Home Medication List Home Medication List Reviewed: Yes (ELLIS MÉNDEZ MD) Cetirizine HCl (Cetirizine HCl) 10 Mg Tablet, 10 MG PO DAILY, (Reported) Entered as Reported by: BILL MACIAS on 12/19/21 1249 Multivitamin (Multivitamin) 1 Each Tablet, 1 EACH PO DAILY, (Reported) Entered as Reported by: BILL MACIAS on 12/19/21 1249 Omeprazole (Omeprazole) 20 Mg Tab.rap.dr, 20 MG PO DAILY, (Reported) Entered as Reported by: BILL MACIAS on 12/19/21 1249 Ondansetron (Ondansetron Odt) 4 Mg Tab.rapdis, 4 MG PO Q6H PRN for NAUSEA/VOMITING Prescribed by: PINKY PHILLIPS on 12/02/21 1309 Turmeric/Turmeric Root Extract (Turmeric 500 mg Capsule) 1 Each Capsule, 2 EACH PO DAILY, (Reported) Entered as Reported by: BILL MACIAS on 12/19/21 1249 Review of Systems Review of Systems Constitutional: No chills, No diaphoresis, No fever EENTM: No Blurred Vision, No Double Vision Respiratory: Denies Cough, Denies Shortness of Air Cardiovascular: Chest Pain; Denies Edema; Lightheadedness, Palpitations Gastrointestinal: Denies Constipated, Denies Diarrhea; Nausea; Denies Poor Appetite, Denies Vomiting Genitourinary: Denies Burning, Denies Frequency Musculoskeletal: No back pain, No joint pain Skin: No change in color, No change in hair/nails Psychiatric/Neurological: Anxiety, Emotional Problems; Denies Headache, Denies Numbness, Denies Tingling, Denies Weakness Endocrine: Denies Excessive Sweating, Denies Flushing Hematologic/Lymphatic: No Symptoms Reported; Denies Easy Bleeding, Denies Easy Bruising (KAYLIN CARNES STUDENT) All Other Systems Reviewed Negative Unless Noted: Yes (KAYLIN CARNES STUDENT) Past Wolkhgn-Radmqg-Pczqex Hx Patient Social History Tobacco Use?: No Smoking Status: Never a Smoker Smokeless Tobacco Frequency: Never a User Use of E-Cig and/or Vaping dev: No Use of E-Cig and/or Vaping Domo: Never a User Substance use?: No Alcohol Use?: No (KAYLIN CARNES Zuldi STUDENT) Immunizations Up To Date Tetanus Booster (TDap): Unknown Influenza Vaccine Up-to-Date: No; Not Current First/Initial COVID19 Vaccinat: N/A Second COVID19 Vaccination Phil: N/A Third COVID19 Vaccination Date: N/A (KAYLIN CARNES Zuldi STUDENT) Seasonal Allergies Seasonal Allergies: Yes (KAYLIN CARNES Zuldi CLARA) Past Medical History Surgery/Hospitalization HX: anxiety Surgeries: Yes (Aneurysm repair in the neck) Section (x2), Tubal Ligation Respiratory: No Cardiac: Yes ("ANEURYSM IN THE NECK" REPAIRED) Palpitations Neurological: No Reproductive Disorders: No Female Reproductive Disorders: Denies TAP PULLER History: Tubal Ligation Genitourinary: No Gastrointestinal: Yes Gastroesophageal Reflux, Hiatal Hernia Musculoskeletal: No Endocrine: Yes (ADRENAL MASS PER CT) HEENT: No Loss of Vision: Denies Hearing Impairment: Denies Cancer: No Psychosocial: Yes Anxiety, Depression Integumentary: Yes (URTICARIA) Blood Disorders: No Adverse Reaction/Blood Tranf: No (KAYLIN CARNES Zuldi STUDENT) Physical Exam Vital Signs Vital Signs - First Documented 01/17/22 06:30 Temp 36.0 Pulse 60 Resp 22 B/P (MAP) 131/80 (97) Pulse Ox 99 O2 Delivery Room Air (ELLIS MÉNDEZ MD) Vital Signs Capillary Refill : Less Than 3 Seconds (KAYLIN CARNES Zuldi STUDENT) Height, Weight, BMI Height: 6'0" Weight: 240lbs. 0oz. [id number]; 39.00 BMI Method:Stated General Appearance: WD/WN, Anxious, Obese HEENT: PERRL/EOMI, Moist Mucous Membranes Neck: Full Range of Motion, Normal Inspection Respiratory: Lungs Clear, Normal Breath Sounds, No Accessory Muscle Use Cardiovascular: Regular Rate, Rhythm, No Edema, No Murmur, Normal Peripheral Pulses Gastrointestinal: Normal Bowel Sounds, Non Tender, Soft Rectal: Deferred Extremity: Normal Capillary Refill, Non Tender, No Calf Tenderness, No Pedal Edema Neurologic/Psychiatric: Alert, Oriented x3, No Motor/Sensory Deficits, Other (Anxious) Skin: Normal Color, Warm/Dry Lymphatic: No Adenopathy (Head and neck) (KAYLIN CARNES MED STUDENT) Progress/Results/Core Measures Results/Orders Lab Results Laboratory Tests Test 01/17/22 07:30 Range/Units Sodium Level 139 135-145 MMOL/L Potassium Level 3.9 3.6-5.0 MMOL/L Chloride Level 106 98-107 MMOL/L Carbon Dioxide Level 22 21-32 MMOL/L Anion Gap 11 5-14 MMOL/L Blood Urea Nitrogen 12 7-18 MG/DL Creatinine 0.79 0.60-1.30 MG/DL Estimat Glomerular Filtration Rate 97 BUN/Creatinine Ratio 15 Glucose Level 112 H 70-105 MG/DL Calcium Level 9.6 8.5-10.1 MG/DL Magnesium Level 1.9 1.6-2.4 MG/DL (ELLIS MÉNDEZ MD) My Orders Orders - ELLIS MÉNDEZ MD Ekg Tracing (01/17/22 06:42) Basic Metabolic Panel (01/17/22 07:16) Magnesium (01/17/22 07:16) Ketorolac Injection (Toradol Injection) (01/17/22 07:30) Ondansetron Oral Dissolve Tab (Zofran (01/17/22 07:16) (ELLIS MÉNDEZ MD) Medications Given in ED Current Medications Medications Dose Ordered Sig/Eddie Route Start Time Stop Time Status Last Admin Dose Admin Ketorolac Tromethamine 60 mg ONCE ONCE IM 01/17/22 07:30 01/17/22 07:31 DC 01/17/22 07:27 60 MG (ELLIS MÉNDEZ MD) Vital Signs/I&O 01/17/22 06:30 Temp 36.0 Pulse 60 Resp 22 B/P (MAP) 131/80 (97) Pulse Ox 99 O2 Delivery Room Air (ELLIS MÉNDEZ MD) Progress Progress Note #1: Time: 07:31 Progress Note 41yo female with multiple recent ER visits, PCP visits, cards visits over the last 2-3 months. Complaints of symptomatic bradycardia, intermittent chest pain, orthostatic dizziness, hair loss, Nausea, acute grief, anxiety and panic. Had a recent holter to evaluate for periodic tachycardia (no results yet). Onset last night of heart fluttering, palpitations, Heartburn, diaphoresis and "ice pick" pain in right chest. Concerned about "withdrawal" off of 2 weeks of lamictal 25mg started many weeks ago. Fairly recently also had covid. States she feels even now, in the bed, her heart is "not right" as she is on the monitor in the upper 50's low 60's without any ectopy. She tells me she has follow up scheduled at the end of the month with a mental health provider. Also once her Holter is read she will have follow up with Cards. Her PCP is concerned she may have POTS disease. She is on multiple vitamin supplements and an "all natural" estrogen replacement. No excessive caffeine. No diet drugs. Fairly "gluten free". Has had multiple CXR and lab studies, including thyroid. All normal At one point had a "low sodium" level and when she uses "pink Himalayan sea salt" in her food she believes her heart rate improves. No recent fevers, chills productive cough. No problems with bowel or bladder. No rashes currently, joint pain or swelling. Physical exam only remarkable for bradycardia. (patient checked for orthostatic VS - her HR did increase to 78/80 on standing) Checking basic chem with a magnesium level. EKG looks normal Progress Note #2: Time: 08:32 Progress Note feels better after IM toradol. Chem and Mag WNL. Still feels "tingly" in arms and face a little. VS remain stable. Advised her to follow up with her PCP and Cardiology. No other concerns verbalized from the patient. Comfortable with plan of care - all questions are sought and answered. (ELLIS MÉNDEZ MD) Departure Impression Primary Impression: Chest pain Qualified Codes: R07.9 - Chest pain, unspecified Additional Impression: Anxiety about health Disposition: 01 HOME, SELF-CARE Condition: Stable Departure-Patient Inst. Decision time for Depature: 08:34 (ELLIS MÉNDEZ MD) Referrals: CHUN BUTTERFIELD MD (PCP) Primary Care Physician NELDA MARSH APRN (Family) Primary Care Physician Patient Instructions: Chest Pain That Is Not Caused by the Heart (DC) Add. Discharge Instructions: Drink plenty of fluids to stay well hydrated. Follow up with your primary care and cardiology. Continue current medications - consider stopping the estrogen supplement. Avoid caffeine. Return to the Emergency Department for any new, concerning or emergent complaints. Verification and Attestation of Medical Student E/M Service A medical student performed and documented this service in my presence. I reviewed and verified all information documented by the medical student and made modifications to such information, when appropriate. I personally performed the physical exam and medical decision making. Ellis Méndez, Jan 17, 2022,07:31 (ELLIS MÉNDEZ MD) Copy Copies To 1: CHUN BUTTERFIELD MD, [employer] MED STUDENT Jan 17, 2022 06:55 ELLIS MÉNDEZ MD Jan 17, 2022 07:38
[2022-01-17] MEDS ORDERED: ONDANSETRON 4 MG (ZOFRAN) ORAL DISSOLVE TAB PO STA (07:16)
[2022-01-17] MEDS ORDERED: KETOROLAC 60 MG/2 ML VIAL IM ONE (07:30)
[2022-01-17 07:59] LABS: POTASSIUM 3.9 MMOL/L (3.6-5.0)
[2022-01-17 08:01] LABS: CALCIUM 9.6 MG/DL (8.5-10.1)
[2022-01-17 08:05] LABS: CREATININE SERUM 0.79 MG/DL (0.60-1.30)
[2022-01-17 08:07] LABS: MAGNESIUM 1.9 MG/DL (1.6-2.4)
[2022-01-17 08:47] VITALS: BP 124/75
== END 2022-01-17 08:47 | disposition home or self-care (01) ==
LOC: EDUNIT# 06:20 → ER 06:24
DX: R07.89 Other chest pain (principal); F43.22 Adjustment disorder with anxiety; R00.1 Bradycardia, unspecified; I95.0 Idiopathic hypotension; K21.9 Gastro-esophageal reflux disease without esophagitis; Z86.16 Personal history of COVID-19; Z79.890 Hormone replacement therapy; Z79.899 Other long term (current) drug therapy
CPT/HCPCS: 36415; 80048; 83735; 93005

== ENCOUNTER 2022-02-03 18:35 | Emergency (ER) | payer MEDICAID ==
[~2022-02-03] VITALS: Ht 180.3 cm; Wt 128.3 kg
--- NOTE | 2022-02-03 18:51 | ED General ---
General Chief Complaint: General Problems/Pain Stated Complaint: FALL, FAINTING,TINGLING FEELING History of Present Illness Date Seen by Provider: Feb 03, 2022 Time Seen by Provider: 18:43 Initial Comments 41-year-old female who is a frequent flyer in the ER here, and sent here from urgent care for odd neurological complaints. Urgent care has diagnosed a UTI for the patient and has sent a prescription for Macrobid to the pharmacy. Patient then continued to complain about feeling weak on her right upper extremity and tingling and also on the right side of her face and a headache on the left side of her head. Patient has had multiple visits to the ER, 11 visits since the beginning of 2021 for vague complaints that appear to be attributed to severe anxiety. Patient also states that she has panic attacks. Patient states that she keeps requesting for a CT scan but has not had one yet. Patient has fast speech patterns and appears to be overly anxious in the ER. Patient states all her symptoms started when her grandmother and her best friend 4 days apart in October due to Covid. Since then patient has had difficulty sleeping at night and has developed severe anxiety and panic attacks. Patient also states that she was started on Lamictal and she stopped it cold turkey about 9 weeks ago because she felt she was having a reaction to it at home. Patient is attributing all her symptoms over the past few months due to the Lamictal. Allergies and Home Medications Allergies Coded Allergies: azithromycin (Verified Allergy, Unknown, 01/02/22) fexofenadine (Verified Allergy, Unknown, 01/02/22) albuterol (Verified Adverse Reaction, Severe, 01/02/22) Jittery and anxious, heart pounding Patient Home Medication List Home Medication List Reviewed: Yes Cetirizine HCl (Cetirizine HCl) 10 Mg Tablet, 10 MG PO DAILY, (Reported) Entered as Reported by: BILL MACIAS on 12/19/21 1249 Multivitamin (Multivitamin) 1 Each Tablet, 1 EACH PO DAILY, (Reported) Entered as Reported by: BILL MACIAS on 12/19/21 1249 Omeprazole (Omeprazole) 20 Mg Tab.rap.dr, 20 MG PO DAILY, (Reported) Entered as Reported by: BILL MACIAS on 12/19/21 1249 Ondansetron (Ondansetron Odt) 4 Mg Tab.rapdis, 4 MG PO Q6H PRN for NAUSEA/VOMITING Prescribed by: PINKY PHILLIPS on 12/02/21 1309 Turmeric/Turmeric Root Extract (Turmeric 500 mg Capsule) 1 Each Capsule, 2 EACH PO DAILY, (Reported) Entered as Reported by: BILL MACIAS on 12/19/21 1249 Review of Systems Review of Systems Constitutional: no symptoms reported EENTM: no symptoms reported Respiratory: no symptoms reported Cardiovascular: no symptoms reported Gastrointestinal: no symptoms reported Genitourinary: no symptoms reported Musculoskeletal: no symptoms reported Skin: no symptoms reported Psychiatric/Neurological: Anxiety, Depressed, Emotional Problems, Headache, Paresthesia, Tingling, Weakness Hematologic/Lymphatic: No Symptoms Reported Immunological/Allergic: no symptoms reported Past Tyvgifm-Bdmkqo-Wifhho Hx Immunizations Up To Date Tetanus Booster (TDap): Unknown First/Initial COVID19 Vaccinat: N/A Second COVID19 Vaccination Phil: N/A Third COVID19 Vaccination Date: N/A Seasonal Allergies Seasonal Allergies: Yes Past Medical History Surgery/Hospitalization HX: anxiety Surgeries: Yes (Aneurysm repair in the neck) Section, Tubal Ligation Respiratory: No Cardiac: Yes ("ANEURYSM IN THE NECK" REPAIRED) Palpitations Neurological: No Reproductive Disorders: No 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 0oz. 108.040333xr; 39.00 BMI Method:Stated General Appearance: Anxious, Obese Eyes: Bilateral Eye Normal Inspection, Bilateral Eye PERRL, Bilateral Eye EOMI HEENT: PERRL/EOMI Neck: Full Range of Motion, Normal Inspection, Non Tender, Supple Respiratory: Lungs Clear, Normal Breath Sounds Cardiovascular: Regular Rate, Rhythm, No Edema Gastrointestinal: Non Tender, Soft Extremity: Normal Inspection, Normal Range of Motion Neurologic/Psychiatric: Alert, Oriented x3, No Motor/Sensory Deficits, insights strategist II- XII Norm as Tested, Other (anxious) Skin: Normal Color Progress/Results/Core Measures Suspected Sepsis SIRS Temperature: Pulse: Respiratory Rate: Laboratory Tests 02/03/22 19:10: White Blood Count 9.9 Blood Pressure / Mean: Laboratory Tests 02/03/22 19:10: Platelet Count 243 Results/Orders Lab Results Laboratory Tests Test 02/03/22 19:10 Range/Units White Blood Count 9.9 4.3-11.0 10^3/uL Red Blood Count 4.41 3.80-5.11 10^6/uL Hemoglobin 10.9 L 11.5-16.0 g/dL Hematocrit 35 35-52 % Mean Corpuscular Volume 79 L 80-99 fL Mean Corpuscular Hemoglobin 25 25-34 pg Mean Corpuscular Hemoglobin Concent 31 L 32-36 g/dL Red Cell Distribution Width 15.9 H 10.0-14.5 % Platelet Count 243 130-400 10^3/uL Mean Platelet Volume 10.8 9.0-12.2 fL Immature Granulocyte % (Auto) 0 % Neutrophils (%) (Auto) 84 H 42-75 % Lymphocytes (%) (Auto) 12 12-44 % Monocytes (%) (Auto) 3 0-12 % Eosinophils (%) (Auto) 1 0-10 % Basophils (%) (Auto) 0 0-10 % Neutrophils # (Auto) 8.3 H 1.8-7.8 10^3/uL Lymphocytes # (Auto) 1.2 1.0-4.0 10^3/uL Monocytes # (Auto) 0.3 0.0-1.0 10^3/uL Eosinophils # (Auto) 0.1 0.0-0.3 10^3/uL Basophils # (Auto) 0.0 0.0-0.1 10^3/uL Immature Granulocyte # (Auto) 0.0 0.0-0.1 10^3/uL Urine Opiates Screen NEGATIVE NEGATIVE Urine Oxycodone Screen NEGATIVE NEGATIVE Urine Methadone Screen NEGATIVE NEGATIVE Urine Propoxyphene Screen NEGATIVE NEGATIVE Urine Barbiturates Screen NEGATIVE NEGATIVE Ur Tricyclic Antidepressants Screen NEGATIVE NEGATIVE Urine Phencyclidine Screen NEGATIVE NEGATIVE Urine Amphetamines Screen NEGATIVE NEGATIVE Urine Methamphetamines Screen NEGATIVE NEGATIVE Urine Benzodiazepines Screen NEGATIVE NEGATIVE Urine Cocaine Screen NEGATIVE NEGATIVE Urine Cannabinoids Screen NEGATIVE NEGATIVE My Orders Orders - IVANNA LYNN MD Ct Head Wo-R/O Stroke (02/03/22 19:01) Cbc With Automated Diff (02/03/22 19:01) Comprehensive Metabolic Panel (02/03/22 19:01) Drug Screen Stat (Urine) (02/03/22 19:01) Urine Bedside (02/03/22 19:01) Vital Signs/I&O 02/03/22 18:38 Temp 36.7 Pulse 86 Resp 18 B/P (MAP) 194/98 (130) Pulse Ox 100 O2 Delivery Room Air Capillary Refill : Progress Note : Progress Note 1. ACUTE ANXIETY: - CT HEAD: normal - CBC/ CMP: unremarkable - UDS: negative - HCG: negative - Advised pt to f/u with PCP and psychiatrist jatin -The patient was seen in the ED, and treated appropriately to presentation at a specific point in time. Patient is informed that there is a possibility that disease and illness can evolve and change in acuity rapidly or slowly after patient is discharged from the ER. Precautionary advice given to the patient for immediate return to ER if symptoms worsen or do not resolve, and to seek emergency care sooner rather than later. Pt also advised on the importance of PCP follow up and compliance with management and follow up plan. Pt verbally expressed understanding. Diagnostic Imaging Diagonstic Imaging: CT Plain Films/CT/US/NM/MRI: head Comments [facility]. [place], [place] NAME: ARIAN MEDINA [facility] REC#: [id number] PT STATUS: REG ER : 1980 PHYSICIAN: IVANNA LYNN MD ADMIT DATE: 02/03/22/ER FS Signed Date of Exam:02/03/22 CT HEAD WO-R/O STROKE EXAMINATION: CT head without contrast. TECHNIQUE: Multiple contiguous axial images were obtained through the brain without the use of intravenous contrast. All CT scans use one or more of the following dose optimizing techniques: automated exposure control, MA and/or KvP adjustment based on patient size and exam type or iterative reconstruction. HISTORY: Brain tingles. Concern for acute ischemia. COMPARISON: None available. FINDINGS: No large acute territorial ischemia, mass or hemorrhage. No midline shift or mass effect. The ventricles, cortical sulci and basilar cisterns are patent and unremarkable. The orbits are normal. Paranasal sinuses are normal. Mastoid air cells are clear. No soft tissue abnormality is seen. No osseus lesions or fractures are seen. IMPRESSION: No large acute territorial ischemia, mass or hemorrhage. Dictated by: Dictated on workstation # [id number] Dict: 02/03/221918 Trans: 02/03/221923 [facility] [id number] Interpreted by: DEBBIE CARLSON DO Electronically signed by: DEBBIE CARLSON DO 02/03/221923 Departure Impression Primary Impression: Acute anxiety Disposition: 01 HOME, SELF-CARE Condition: Stable Departure-Patient Inst. Referrals: CHUN BUTTERFIELD MD (PCP) Primary Care Physician [facility] Patient Instructions: Anxiety, Adult (DC) Add. Discharge Instructions: - Follow up with PCP and psychiatry as soon as possible. -The patient was seen in the ED, and treated appropriately to presentation at a specific point in time. Patient is informed that there is a possibility that di sease and illness can evolve and change in acuity rapidly or slowly after patient is discharged from the ER. Precautionary advice given to the patient for immediate return to ER if symptoms worsen or do not resolve, and to seek emergency care sooner rather than later. Pt also advised on the importance of PCP follow up and compliance with management and follow up plan. Pt verbally e xpressed understanding. All discharge instructions reviewed with patient and/or family. Voiced understanding. IVANNA LYNN MD Feb 03, 2022 18:51
[2022-02-03 19:14] LABS: BASOPHILS % (AUTO) 0 % (0-10); EOSINOPHILS # (AUTO) 0.1 10^3/uL (0.0-0.3); EOSINOPHILS % (AUTO) 1 % (0-10); HEMATOCRIT 35 % (35-52); HEMOGLOBIN 10.9 g/dL (11.5-16.0); LYMPHOCYTES # (AUTO) 1.2 10^3/uL (1.0-4.0); LYMPHOCYTES % (AUTO) 12 % (12-44); MEAN CORPUSCULAR HEMOGLOBIN 25 pg (25-34); MEAN CORPUSCULAR HGB CONC 31 g/dL (32-36); MEAN CORPUSCULAR VOLUME 79 fL (80-99); MEAN PLATELET VOLUME 10.8 fL (9.0-12.2); MONOCYTES # (AUTO) 0.3 10^3/uL (0.0-1.0); MONOCYTES % (AUTO) 3 % (0-12); NEUTROPHILS # (AUTO) 8.3 10^3/uL (1.8-7.8); NEUTROPHILS % (AUTO) 84 % (42-75); PLATELET COUNT 243 10^3/uL (130-400); WHITE BLOOD COUNT 9.9 10^3/uL (4.3-11.0)
--- NOTE | 2022-02-03 19:24 | Diagnostic Imaging Report ---
EXAMINATION: CT head without contrast. TECHNIQUE: Multiple contiguous axial images were obtained through the brain without the use of intravenous contrast. All CT scans use one or more of the following dose optimizing techniques: automated exposure control, MA and/or KvP adjustment based on patient size and exam type or iterative reconstruction. HISTORY: Brain tingles. Concern for acute ischemia. COMPARISON: None available. FINDINGS: No large acute territorial ischemia, mass or hemorrhage. No midline shift or mass effect. The ventricles, cortical sulci and basilar cisterns are patent and unremarkable. The orbits are normal. Paranasal sinuses are normal. Mastoid air cells are clear. No soft tissue abnormality is seen. No osseus lesions or fractures are seen. IMPRESSION: No large acute territorial ischemia, mass or hemorrhage. Dictated by: Dictated on workstation # [id number]
[2022-02-03 19:25] LABS: AMPHETAMINE SCREEN, URINE NEGATIVE (NEGATIVE); BARBITURATE SCREEN URINE NEGATIVE (NEGATIVE); BENZODIAZEPINES SCREEN URINE NEGATIVE (NEGATIVE); CANNABINOID SCREEN, URINE NEGATIVE (NEGATIVE); COCAINE SCREEN URINE NEGATIVE (NEGATIVE); METHADONE STAT NEGATIVE (NEGATIVE); METHAMPHETAMINE SCREEN URINE S NEGATIVE (NEGATIVE); OPIATE SCREEN URINE NEGATIVE (NEGATIVE); OXYCODONE STAT NEGATIVE (NEGATIVE); PROPOXYPHENE STAT NEGATIVE (NEGATIVE); TRICYCLIC ANTIDEPRESSANTS SCRE NEGATIVE (NEGATIVE)
[2022-02-03 19:33] LABS: ALBUMIN 4.1 GM/DL (3.2-4.5); BILIRUBIN,TOTAL 0.2 MG/DL (0.1-1.0); CALCIUM 9.4 MG/DL (8.5-10.1); CREATININE SERUM 0.74 MG/DL (0.60-1.30); TOTAL PROTEIN 7.4 GM/DL (6.4-8.2)
[2022-02-03 19:40] VITALS: BP 134/76
== END 2022-02-03 19:41 | disposition home or self-care (01) ==
LOC: EDUNIT# 18:35 → ER FS 18:37
DX: F41.9 Anxiety disorder, unspecified (principal); N39.0 Urinary tract infection, site not specified; E66.9 Obesity, unspecified; Z68.39 Body mass index [BMI] 39.0-39.9, adult
CPT/HCPCS: 36415; 70450; 80053; 80306; 85025; 99281

== ENCOUNTER 2022-02-04 21:01 | Emergency (ER) | payer MEDICAID ==
[~2022-02-04] VITALS: Ht 180.3 cm; Wt 126.9 kg
[2022-02-04 21:37] VITALS: BP 119/75
--- NOTE | 2022-02-04 21:38 | ED General ---
General Chief Complaint: General Problems/Pain Stated Complaint: BLOOD PRESSURE FLUCUATING Nursing Triage Note: Patient presents to the ER with the same complaints as her last visit. Patient states that her blood pressure is fluxuating for which she has video of. Patient appears to be anxious. Patient also states that she had been passing out although doesn't state she passed out today. Patient states she has been having issues for the last several weeks. Patient would like to be checked out. Source of Information: Patient Exam Limitations: No Limitations History of Present Illness Date Seen by Provider: Feb 04, 2022 Time Seen by Provider: 21:04 Initial Comments 41-year-old female with past medical history of ?bipolar disorder coming in due to anxiety attack similar to previous episodes, and she took her blood pressure numerous times and it seems to fluctuate between 100 systolic to 160 systolic. No other new complaints compared to her numerous previous visits. Denying any crushing chest pain, significant shortness of breath, abdominal pain, nausea, vo miting, diarrhea, weakness, numbness, vision changes, severe headache, or any other concerns. She said she recently had a Holter monitor, and the president financial institution called her today and is going to start her on metoprolol which she has not filled yet. Allergies and Home Medications Allergies Coded Allergies: azithromycin (Verified Allergy, Unknown, 01/02/22) fexofenadine (Verified Allergy, Unknown, 01/02/22) albuterol (Verified Adverse Reaction, Severe, 01/02/22) Jittery and anxious, heart pounding Patient Home Medication List Home Medication List Reviewed: Yes Cetirizine HCl (Cetirizine HCl) 10 Mg Tablet, 10 MG PO DAILY, (Reported) Entered as Reported by: BILL MACIAS on 12/19/21 1249 Multivitamin (Multivitamin) 1 Each Tablet, 1 EACH PO DAILY, (Reported) Entered as Reported by: BILL MACIAS on 12/19/21 1249 Omeprazole (Omeprazole) 20 Mg Tab.rap.dr, 20 MG PO DAILY, (Reported) Entered as Reported by: BILL MACIAS on 12/19/21 1249 Ondansetron (Ondansetron Odt) 4 Mg Tab.rapdis, 4 MG PO Q6H PRN for NAUSEA/VOMITING Prescribed by: PINKY PHILLIPS on 12/02/21 1309 Turmeric/Turmeric Root Extract (Turmeric 500 mg Capsule) 1 Each Capsule, 2 EACH PO DAILY, (Reported) Entered as Reported by: BILL MACIAS on 12/19/21 0681 Review of Systems Review of Systems Constitutional: No chills, No fever EENTM: No blurred vision Respiratory: No cough Cardiovascular: No chest pain Gastrointestinal: No abdominal pain Genitourinary: no symptoms reported Musculoskeletal: no symptoms reported Skin: no symptoms reported Psychiatric/Neurological: Anxiety Hematologic/Lymphatic: No Symptoms Reported Immunological/Allergic: no symptoms reported All Other Systems Reviewed Negative Unless Noted: Yes Past Vpbacab-Dotnem-Znwlbp Hx Patient Social History Tobacco Use?: No Substance use?: No Alcohol Use?: No Pt feels they are or have been: No Immunizations Up To Date Tetanus Booster (TDap): Unknown First/Initial COVID19 Vaccinat: N/A Second COVID19 Vaccination Phil: N/A Third COVID19 Vaccination Date: N/A Seasonal Allergies Seasonal Allergies: Yes Past Medical History Surgery/Hospitalization HX: anxiety Surgeries: Yes (Aneurysm repair in the neck) Section, Tubal Ligation Respiratory: No Cardiac: Yes ("ANEURYSM IN THE NECK" REPAIRED) Palpitations Neurological: No Reproductive Disorders: No 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 0oz. 108.760537rd; 39.00 BMI Method:Stated General Appearance: WD/WN, Anxious Eyes: Bilateral Eye Normal Inspection, Bilateral Eye PERRL, Bilateral Eye EOMI HEENT: PERRL/EOMI, TMs Normal, Normal ENT Inspection, Pharynx Normal Neck: Full Range of Motion, Normal Inspection, Non Tender, Supple Respiratory: Chest Non Tender, Lungs Clear, Normal Breath Sounds, No Accessory Muscle Use, No Respiratory Distress Cardiovascular: Regular Rate, Rhythm, No Edema, Normal Peripheral Pulses Gastrointestinal: Normal Bowel Sounds, Non Tender, Soft; No Distended, No Guarding Back: Normal Inspection, No CVA Tenderness, No Vertebral Tenderness Extremity: Normal Capillary Refill, Normal Inspection, Normal Range of Motion, Non Tender, No Calf Tenderness, No Pedal Edema Neurologic/Psychiatric: Alert, Oriented x3, No Motor/Sensory Deficits, Normal Mood/Affect, emergency room tech II-XII Norm as Tested, Other (Normal [id number], normal [id number], no dysdiadochokinesia, normal tandem gait) Skin: Normal Color, Warm/Dry Lymphatic: No Adenopathy Progress/Results/Core Measures Suspected Sepsis SIRS Temperature: Pulse: 65 Respiratory Rate: 18 Blood Pressure 178 /71 Mean: 106 Results/Orders Vital Signs/I&O 02/04/22 21:04 Temp 37.0 Pulse 65 Resp 18 B/P (MAP) 178/71 (106) Pulse Ox 99 O2 Delivery Room Air Capillary Refill : Less Than 3 Seconds Blood Pressure Mean: 106 Progress Note : Progress Note 41-year-old female with above history coming in mostly due to blood pressure fluctuations. ABCs were intact and vitals were stable on presentation. When I used the appropriate size cuff for her arm, her blood pressure was 119/76. She says her cuff at home is too small compared to the one we used here which makes sense. I also discussed that she needs to be seated for at least 10 minutes before she takes her blood pressure. She says that she essentially has not been taking it correctly at home. I told her to get a journal and take it only twice a day and write these numbers down to share with her primary care doctor in the next couple weeks to see if her numbers are consistently high, and if she potentially needs a new blood pressure medicine. She has no signs of endorgan dysfunction and her physical exam is reassuring. I reviewed numerous emergency department visits including numerous cardiac work-ups which were negative, normal TSH, normal CT head, normal chest x-rays. No new complaints today so will forego further work-up. She was then discharged home in stable condition with strict return precautions. Departure Impression Primary Impression: Elevated blood pressure reading Disposition: HOME, SELF-CARE Condition: Stable Departure-Patient Inst. Decision time for Depature: 21:37 Referrals: CHUN BUTTERFIELD MD (PCP/Family) Primary Care Physician Patient Instructions: Lowering Your Risk of High Blood Pressure Add. Discharge Instructions: Take your blood pressure once in the morning, and once at night. Be seated for at least 10 minutes, have your arm elevated and resting on something, no talking or moving during the blood pressure reading. Be sure the cuff is large enough for your arm which is really important. Give these numbers to your primary care doctor after he been recording them for the next couple weeks if they continue to be very elevated. Come back to the ER if you are having crushing severe chest pain that is worse you have ever had in your life, severe shortness of breath where you are unable to speak in full sentences, worst headache of your life, or any other concerns. Work/School Note: Work Release Form Date Seen in the Emergency Department: Feb 04, 2022 Return to Work: Feb 06, 2022 Restrictions: No Restrictions SARA HANDY MD Feb 04, 2022 21:38
[2022-02-05] MEDS ORDERED: VENL75CA93 PO (15:22)
[2022-02-05] MEDS ORDERED: LORA-405 PO (16:11)
== END 2022-02-04 21:39 | disposition home or self-care (01) ==
LOC: EDUNIT# 21:01 → ER FS 21:02
DX: R03.0 Elevated blood-pressure reading, without diagnosis of hypertension (principal)
CPT/HCPCS: 99281

== ENCOUNTER 2022-02-05 14:00 | Emergency (ER) | payer MEDICAID ==
[~2022-02-05] VITALS: Ht 180 cm; Wt 127.0 kg
--- NOTE | 2022-02-05 14:12 | ED General ---
General Stated Complaint: SHAKING - HAD PRESSURE - UNABLE TO WALK Source of Information: Patient Exam Limitations: No Limitations History of Present Illness Date Seen by Provider: Feb 05, 2022 Time Seen by Provider: 14:09 Initial Comments To ER with c/o shaking, unable to walk, breathing fast. Has been seen in ER 4 times over the course of the past week for high blood pressure, chest pain, anxiety and then this today. Was started on Lamictal on 12/23. She took that for two weeks and then stopped and has been having troubles ever since. Had covid earlier this month. Timing/Duration: Getting Worse, Intermittent Severity: Moderate Associated Systoms: Denies Symptoms Allergies and Home Medications Allergies Coded Allergies: azithromycin (Verified Allergy, Unknown, 01/02/22) fexofenadine (Verified Allergy, Unknown, 01/02/22) albuterol (Verified Adverse Reaction, Severe, 01/02/22) Jittery and anxious, heart pounding Patient Home Medication List Home Medication List Reviewed: Yes Cetirizine HCl (Cetirizine HCl) 10 Mg Tablet, 10 MG PO DAILY, (Reported) Entered as Reported by: BILL MACIAS on 12/19/21 1249 Lorazepam (Ativan) 1 Mg Tablet, 1 MG PO BID PRN for ANXIETY Prescribed by: GRACIE ALAS on 02/05/22 1611 Multivitamin (Multivitamin) 1 Each Tablet, 1 EACH PO DAILY, (Reported) Entered as Reported by: BILL MACIAS on 12/19/21 1249 Omeprazole (Omeprazole) 20 Mg Tab.rap.dr, 20 MG PO DAILY, (Reported) Entered as Reported by: BILL MACIAS on 12/19/21 1249 Ondansetron (Ondansetron Odt) 4 Mg Tab.rapdis, 4 MG PO Q6H PRN for NAUSEA/VOMITING Prescribed by: PINKY PHILLIPS on 12/02/21 1309 Turmeric/Turmeric Root Extract (Turmeric 500 mg Capsule) 1 Each Capsule, 2 EACH PO DAILY, (Reported) Entered as Reported by: BILL MACIAS on 12/19/21 1249 Venlafaxine HCl (Venlafaxine HCl ER) 75 Mg Cap.er.24h, 75 MG PO DAILY Prescribed by: GRACIE ALAS on 02/05/22 1522 Review of Systems Review of Systems Constitutional: see HPI, weakness EENTM: see HPI Respiratory: no symptoms reported Cardiovascular: no symptoms reported Genitourinary: no symptoms reported Musculoskeletal: no symptoms reported Skin: no symptoms reported Psychiatric/Neurological: No Symptoms Reported Hematologic/Lymphatic: No Symptoms Reported Past [id number]-Bqmsjk-Rbjfmc Hx Immunizations Up To Date Tetanus Booster (TDap): Unknown First/Initial COVID19 Vaccinat: N/A Second COVID19 Vaccination Phil: N/A Third COVID19 Vaccination Date: N/A Seasonal Allergies Seasonal Allergies: Yes Past Medical History Surgery/Hospitalization HX: anxiety Surgeries: Yes (Aneurysm repair in the neck) Section, Tubal Ligation Respiratory: No Cardiac: Yes ("ANEURYSM IN THE NECK" REPAIRED) Palpitations Neurological: No Reproductive Disorders: No Female Reproductive Disorders: Denies 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 0oz. 108.517897rt; 39.00 BMI Method:Stated General Appearance: No Apparent Distress, WD/WN, Anxious (shaking, difficluty standing, hyperventilating), Other (states she does not believe it is anxiety causing these symptoms. ) Neck: Full Range of Motion, Normal Inspection Respiratory: No Accessory Muscle Use, No Respiratory Distress Cardiovascular: Regular Rate, Rhythm, Normal Peripheral Pulses Gastrointestinal: Normal Bowel Sounds, Non Tender, Soft Extremity: Normal Capillary Refill, Normal Inspection Neurologic/Psychiatric: Alert, Oriented x3 Skin: Normal Color, Warm/Dry Progress/Results/Core Measures Suspected Sepsis SIRS Temperature: Pulse: Respiratory Rate: Laboratory Tests 02/05/22 14:12: White Blood Count 8.8 Blood Pressure / Mean: Laboratory Tests 02/05/22 14:12: Creatinine 0.75, Platelet Count 295, Total Bilirubin 0.3 Results/Orders Lab Results Laboratory Tests Test 02/05/22 14:12 02/05/22 15:26 Range/Units White Blood Count 8.8 4.3-11.0 10^3/uL Red Blood Count 4.69 3.80-5.11 10^6/uL Hemoglobin 11.4 L 11.5-16.0 g/dL Hematocrit 37 35-52 % Mean Corpuscular Volume 79 L 80-99 fL Mean Corpuscular Hemoglobin 24 L 25-34 pg Mean Corpuscular Hemoglobin Concent 31 L 32-36 g/dL Red Cell Distribution Width 15.8 H 10.0-14.5 % Platelet Count 295 130-400 10^3/uL Mean Platelet Volume 11.1 9.0-12.2 fL Immature Granulocyte % (Auto) 0 % Neutrophils (%) (Auto) 83 H 42-75 % Lymphocytes (%) (Auto) 14 12-44 % Monocytes (%) (Auto) 3 0-12 % Eosinophils (%) (Auto) 0 0-10 % Basophils (%) (Auto) 0 0-10 % Neutrophils # (Auto) 7.3 1.8-7.8 X 10^3 Lymphocytes # (Auto) 1.2 1.0-4.0 X 10^3 Monocytes # (Auto) 0.3 0.0-1.0 X 10^3 Eosinophils # (Auto) 0.0 0.0-0.3 10^3/uL Basophils # (Auto) 0.0 0.0-0.1 10^3/uL Immature Granulocyte # (Auto) 0.0 0.0-0.1 10^3/uL Sodium Level 140 135-145 MMOL/L Potassium Level 4.0 3.6-5.0 MMOL/L Chloride Level 107 98-107 MMOL/L Carbon Dioxide Level 21 21-32 MMOL/L Anion Gap 12 5-14 MMOL/L Blood Urea Nitrogen 11 7-18 MG/DL Creatinine 0.75 0.60-1.30 MG/DL Estimat Glomerular Filtration Rate 103 BUN/Creatinine Ratio 15 Glucose Level 107 H 70-105 MG/DL Calcium Level 9.4 8.5-10.1 MG/DL Corrected Calcium 9.2 8.5-10.1 MG/DL Total Bilirubin 0.3 0.1-1.0 MG/DL Aspartate Amino Transf (AST/SGOT) 17 5-34 U/L Alanine Aminotransferase (ALT/SGPT) 19 0-55 U/L Alkaline Phosphatase 50 40-136 U/L Total Creatine Kinase 60 29-168 U/L Total Protein 7.6 6.4-8.2 GM/DL Albumin 4.2 3.2-4.5 GM/DL Thyroid Stimulating Hormone (TSH) 0.43 0.35-4.94 UIU/ML Free Thyroxine 1.08 0.70-1.48 NG/DL Serum Test, Qualitative NEGATIVE NEGATIVE Urine Color YELLOW Urine Clarity CLEAR Urine pH 6.0 5-9 Urine Specific [place] 1.025 H 1.016-1.022 Urine Protein NEGATIVE NEGATIVE Urine Glucose (UA) NEGATIVE NEGATIVE Urine Ketones 3+ H NEGATIVE Urine Nitrite NEGATIVE NEGATIVE Urine Bilirubin NEGATIVE NEGATIVE Urine Urobilinogen 0.2 < = 1.0 MG/DL Urine Leukocyte Esterase NEGATIVE NEGATIVE Urine RBC (Auto) 3+ H NEGATIVE Urine RBC 5-10 H /HPF Urine WBC NONE /HPF Urine Squamous Epithelial Cells 2-5 /HPF Urine Crystals NONE /LPF Urine Bacteria TRACE /HPF Urine Casts NONE /LPF Urine Mucus SMALL H /LPF Urine Culture Indicated NO Urine Opiates Screen NEGATIVE NEGATIVE Urine Oxycodone Screen NEGATIVE NEGATIVE Urine Methadone Screen NEGATIVE NEGATIVE Urine Propoxyphene Screen NEGATIVE NEGATIVE Urine Barbiturates Screen NEGATIVE NEGATIVE Ur Tricyclic Antidepressants Screen NEGATIVE NEGATIVE Urine Phencyclidine Screen NEGATIVE NEGATIVE Urine Amphetamines Screen NEGATIVE NEGATIVE Urine Methamphetamines Screen NEGATIVE NEGATIVE Urine Benzodiazepines Screen NEGATIVE NEGATIVE Urine Cocaine Screen NEGATIVE NEGATIVE Urine Cannabinoids Screen NEGATIVE NEGATIVE My Orders Orders - GRACIE ALAS APRN Lorazepam Injection (Ativan Injection) (02/05/22 14:15) Cbc With Automated Diff (02/05/22 14:08) Comprehensive Metabolic Panel (02/05/22 14:08) Ua Culture If Indicated (02/05/22 14:08) Drug Screen Stat (Urine) (02/05/22 14:08) Ed Iv/Invasive Line Start (02/05/22 14:08) Thyroid Stimulating Hormone (02/05/22 14:08) Free T4 (Free Thyroxine) (02/05/22 14:08) Lorazepam Injection (Ativan Injection) (02/05/22 15:15) Creatine Kinase (02/05/22 15:30) Lactated Ringers (Lr 1000 Ml Iv Solution (02/05/22 16:15) Hcg,Qualitative Serum (02/05/22 16:12) Ct Lumbar Spine Wo (02/05/22 16:12) Medications Given in ED Current Medications Medications Dose Ordered Sig/Eddie Route Start Time Stop Time Status Last Admin Dose Admin Lorazepam 1 mg ONCE ONCE IVP 02/05/22 14:15 02/05/22 14:16 DC 02/05/22 14:17 1 MG Vital Signs/I&O 02/05/22 02/05/22 02/05/22 02/05/22 14:04 14:19 15:06 16:00 Temp 35.9 Pulse 89 62 80 68 Resp 20 18 18 18 B/P (MAP) 119/106 (110) 135/77 142/85 126/64 Pulse Ox 98 98 98 97 O2 Delivery Room Air Room Air Room Air 02/05/22 18:43 Pulse 60 Resp 18 B/P (MAP) 138/71 Pulse Ox 99 O2 Delivery Room Air Capillary Refill : Departure Communication (Admissions) 1508-Still anxiious (though better) after 1mg lorazepam. Additional 1mg ordered which patient refused because she doesnt like the way its making her feel and its making her see things. 1610-Still has tingling/pins/needles bilat legs. Will give 1 liter IVF, ct lumbar spine. Discussed anxiety with her and will initiate effexor + lorazepam until PCP follow up. Shes agreeable with this plan. Impression Primary Impression: Acute anxiety Disposition: HOME, SELF-CARE Condition: Improved Departure-Patient Inst. Decision time for Depature: 15:21 Referrals: CHUN BUTTERFIELD MD (PCP/Family) Primary Care Physician Patient Instructions: Anxiety, Adult (DC) Add. Discharge Instructions: 1. Follow up with Dr Butterifeld 2. Return to Er for any concerns Scripts Lorazepam (Ativan) 1 Mg Tablet 1 MG PO BID PRN for ANXIETY for 7 Days, #20 TAB Prov: GRACIE ALAS APRN 02/05/22 Venlafaxine HCl (Venlafaxine HCl ER) 75 Mg Cap.er.24h 75 MG PO DAILY, #30 CAP 2 Refills Prov: GRACIE ALAS APRN 02/05/22 GRACIE ALAS APRN Feb 05, 2022 14:12
[2022-02-05] MEDS ORDERED: LORazepam INJ 2 MG/ML (ATIVAN) VIAL IVP ONE (14:15)
[2022-02-05 14:43] LABS: BASOPHILS % (AUTO) 0 % (0-10); EOSINOPHILS % (AUTO) 0 % (0-10); HEMATOCRIT 37 % (35-52); HEMOGLOBIN 11.4 g/dL (11.5-16.0); LYMPHOCYTES # (AUTO) 1.2 X 10^3 (1.0-4.0); LYMPHOCYTES % (AUTO) 14 % (12-44); MEAN CORPUSCULAR HEMOGLOBIN 24 pg (25-34); MEAN CORPUSCULAR HGB CONC 31 g/dL (32-36); MEAN CORPUSCULAR VOLUME 79 fL (80-99); MEAN PLATELET VOLUME 11.1 fL (9.0-12.2); MONOCYTES # (AUTO) 0.3 X 10^3 (0.0-1.0); MONOCYTES % (AUTO) 3 % (0-12); NEUTROPHILS # (AUTO) 7.3 X 10^3 (1.8-7.8); NEUTROPHILS % (AUTO) 83 % (42-75); PLATELET COUNT 295 10^3/uL (130-400); WHITE BLOOD COUNT 8.8 10^3/uL (4.3-11.0)
[2022-02-05 14:46] LABS: ALBUMIN 4.2 GM/DL (3.2-4.5); BILIRUBIN,TOTAL 0.3 MG/DL (0.1-1.0); CALCIUM 9.4 MG/DL (8.5-10.1); CREATININE SERUM 0.75 MG/DL (0.60-1.30); TOTAL PROTEIN 7.6 GM/DL (6.4-8.2)
[2022-02-05 15:07] LABS: FREE T4 (FREE THYROXINE) 1.08 NG/DL (0.70-1.48)
[2022-02-05] MEDS ORDERED: LORazepam INJ 2 MG/ML (ATIVAN) VIAL IVP PRN (15:15)
[2022-02-05] MEDS ORDERED: VENL75CA93 PO (15:22)
[2022-02-05 15:37] LABS: BILIRUBIN,URINE NEGATIVE (NEGATIVE); CLARITY,URINE CLEAR; COLOR,URINE YELLOW; GLUCOSE, URINE (UA) NEGATIVE (NEGATIVE); KETONES,URINE 3+ (NEGATIVE); LEUKOCYTE ESTERASE ,URINE NEGATIVE (NEGATIVE); NITRITE,URINE NEGATIVE (NEGATIVE); PROTEIN,URINE NEGATIVE (NEGATIVE)
[2022-02-05 15:55] LABS: BACTERIA,URINE TRACE /HPF
[2022-02-05 15:56] LABS: AMPHETAMINE SCREEN, URINE NEGATIVE (NEGATIVE); BARBITURATE SCREEN URINE NEGATIVE (NEGATIVE); BENZODIAZEPINES SCREEN URINE NEGATIVE (NEGATIVE); CANNABINOID SCREEN, URINE NEGATIVE (NEGATIVE); COCAINE SCREEN URINE NEGATIVE (NEGATIVE); METHADONE STAT NEGATIVE (NEGATIVE); METHAMPHETAMINE SCREEN URINE S NEGATIVE (NEGATIVE); OPIATE SCREEN URINE NEGATIVE (NEGATIVE); OXYCODONE STAT NEGATIVE (NEGATIVE); PROPOXYPHENE STAT NEGATIVE (NEGATIVE); TRICYCLIC ANTIDEPRESSANTS SCRE NEGATIVE (NEGATIVE)
[2022-02-05] MEDS ORDERED: LORA-405 PO (16:11)
[2022-02-05] MEDS ORDERED: LACTATED RINGERS 1,000 ML IV SCH (16:15)
--- NOTE | 2022-02-05 17:38 | Diagnostic Imaging Report ---
PROCEDURE: CT lumbar spine without contrast. TECHNIQUE: Multiple contiguous axial images were obtained through the lumbar spine without the use of intravenous contrast. Sagittal and coronal reformations were then performed. Auto Exposure Controls were utilized during the CT exam to meet ALARA standards for radiation dose reduction. DATE: February 05, 2022. INDICATION: 41-year-old female, fall 5 days ago. Low back pain extending down both lower extremities. COMPARISON: CT abdomen pelvis December 14, 2021. FINDINGS: The alignment of the lumbar spine is unremarkable. The lumbar disc heights are well-preserved. CT is limited for assessment of disc pathology as well as additional non-bony causes of pathology in the spinal canal. There is no CT apparent large disc protrusion or extrusion. There is no apparent high-grade spinal stenosis at the lumbar spine levels. There are mild bilateral facet degenerative changes at L3-L4, L4-L5 and L5-S1. The partially imaged portions of the sacroiliac joints are well-preserved. There is no identified acute fracture of the lumbar spine. IMPRESSION: 1. No identified acute abnormality of the lumbar spine. Dictated by: Dictated on workstation # [id number]
[2022-02-05 18:43] VITALS: BP 138/71
== END 2022-02-05 18:43 | disposition home or self-care (01) ==
LOC: EDUNIT# 14:00 → ER 14:02
DX: F41.9 Anxiety disorder, unspecified (principal); Z86.16 Personal history of COVID-19
CPT/HCPCS: 36415; 72131; 80053; 80306; 81000; 82550; 84439; 84443; 84703; 85025

== ENCOUNTER 2022-08-22 05:12 | Emergency (ER) | payer MEDICAID ==
[~2022-08-22] VITALS: Ht 182.8 cm; Wt 132.4 kg
[~2022-08-22 05:12] MED LIST changes: +LORA-405 PO; +VENL75CA93 PO
--- NOTE | 2022-08-22 05:48 | ED Chest Pain ---
General Chief Complaint: Cardiac/General Problems Stated Complaint: ELEVATED HEART RATE, ADRENALINE RUSHES Nursing Triage Note: patient states she has been having "burst of adrenaline" states heart rate above 70, highest 153 since yesterday afternoon. patient states heart feels like it is "pounding" patient states diagnosed anemia and started on PO Iron 2 weeks ago. states SOB for the last two weeks. History of Present Illness Date Seen by Provider: Aug 22, 2022 Time Seen by Provider: 05:39 Initial Comments 41-year-old female with PMH of iron deficiency anemia/GERD on omeprazole at home, is here with complaints of retrosternal chest pain which began about 2 weeks ago, on and off, and worsened in intensity within the past 24 hours. Patient also has had associated SOB due to an anemia. Patient states that the pain is burning in nature and she can feel the burning extend to the back of her throat and sometimes into her nose, which sounds like acid reflux. Denies fever, headache, dizziness, palpitations. Allergies and Home Medications Allergies Coded Allergies: azithromycin (Verified Allergy, Unknown, 01/02/22) fexofenadine (Verified Allergy, Unknown, 01/02/22) albuterol (Verified Adverse Reaction, Severe, 01/02/22) Jittery and anxious, heart pounding Patient Home Medication List Home Medication List Reviewed: Yes Cetirizine HCl (Cetirizine HCl) 10 Mg Tablet, 10 MG PO DAILY, (Reported) Entered as Reported by: BILL MACIAS on 12/19/21 1249 Lorazepam (Ativan) 1 Mg Tablet, 1 MG PO BID PRN for ANXIETY Prescribed by: GRACIE ALAS on 02/05/22 1611 Multivitamin (Multivitamin) 1 Each Tablet, 1 EACH PO DAILY, (Reported) Entered as Reported by: BILL MACIAS on 12/19/21 1249 Omeprazole (Omeprazole) 20 Mg Tab.rap.dr, 20 MG PO DAILY, (Reported) Entered as Reported by: BILL MACIAS on 12/19/21 1249 Ondansetron (Ondansetron Odt) 4 Mg Tab.rapdis, 4 MG PO Q6H PRN for NAUSEA/VOMI TING Prescribed by: PINKY PHILLIPS on 12/02/21 1309 Turmeric/Turmeric Root Extract (Turmeric 500 mg Capsule) 1 Each Capsule, 2 EACH PO DAILY, (Reported) Entered as Reported by: BILL MACIAS on 12/19/21 1249 Venlafaxine HCl (Venlafaxine HCl ER) 75 Mg Cap.er.24h, 75 MG PO DAILY Prescribed by: GRACIE ALAS on 02/05/22 1522 Review of Systems Review of Systems Constitutional: no symptoms reported EENTM: No Symptoms Reported Respiratory: No Symptoms Reported Cardiovascular: Chest Pain Gastrointestinal: No Symptoms Reported Genitourinary: No Symptoms Reported Musculoskeletal: no symptoms reported Skin: no symptoms reported Psychiatric/Neurological: No Symptoms Reported Endocrine: No Symptoms Reported Hematologic/Lymphatic: No Symptoms Reported Past Ytjkhzi-Dbjinf-Hoafpc Hx Patient Social History Tobacco Use?: No Use of E-Cig and/or Vaping dev: No Substance use?: No Alcohol Use?: No Immunizations Up To Date Tetanus Booster (TDap): Unknown Influenza Vaccine Up-to-Date: No; Not Current First/Initial COVID19 Vaccinat: NO Second COVID19 Vaccination Phil: NO Third COVID19 Vaccination Date: NO Seasonal Allergies Seasonal Allergies: Yes Past Medical History Surgery/Hospitalization HX: anxiety Surgeries: Yes (Aneurysm repair in the neck) Section, Tubal Ligation Respiratory: No Cardiac: Yes ("ANEURYSM IN THE NECK" REPAIRED) Palpitations Neurological: No Reproductive Disorders: No Female Reproductive Disorders: Denies 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 0oz. 108.545645xu; 39.00 BMI Method:Stated General Appearance: No Apparent Distress, WD/WN HEENT: PERRL/EOMI Neck: Full Range of Motion, Normal Inspection, Non Tender Respiratory: Chest Non Tender, Lungs Clear, Normal Breath Sounds Cardiovascular: Regular Rate, Rhythm, No Edema, No Murmur Gastrointestinal: Normal Bowel Sounds, Non Tender, Soft Extremity: Normal Range of Motion Neurologic/Psychiatric: Alert, Oriented x3, No Motor/Sensory Deficits Skin: Normal Color Lymphatic: No Adenopathy Progress/Results/Core Measures Results/Orders Lab Results Laboratory Tests Test 08/22/22 05:20 Range/Units White Blood Count 7.6 4.3-11.0 10^3/uL Red Blood Count 4.37 3.80-5.11 10^6/uL Hemoglobin 10.8 L 11.5-16.0 g/dL Hematocrit 35 35-52 % Mean Corpuscular Volume 79 L 80-99 fL Mean Corpuscular Hemoglobin 25 25-34 pg Mean Corpuscular Hemoglobin Concent 31 L 32-36 g/dL Red Cell Distribution Width 17.3 H 10.0-14.5 % Platelet Count 215 130-400 10^3/uL Mean Platelet Volume 11.0 9.0-12.2 fL Immature Granulocyte % (Auto) 0 % Neutrophils (%) (Auto) 71 42-75 % Lymphocytes (%) (Auto) 20 12-44 % Monocytes (%) (Auto) 5 0-12 % Eosinophils (%) (Auto) 3 0-10 % Basophils (%) (Auto) 1 0-10 % Neutrophils # (Auto) 5.4 1.8-7.8 10^3/uL Lymphocytes # (Auto) 1.5 1.0-4.0 10^3/uL Monocytes # (Auto) 0.4 0.0-1.0 10^3/uL Eosinophils # (Auto) 0.2 0.0-0.3 10^3/uL Basophils # (Auto) 0.1 0.0-0.1 10^3/uL Immature Granulocyte # (Auto) 0.0 0.0-0.1 10^3/uL Sodium Level 141 135-145 MMOL/L Potassium Level 4.6 3.6-5.0 MMOL/L Chloride Level 104 98-107 MMOL/L Carbon Dioxide Level 25 21-32 MMOL/L Anion Gap 12 5-14 MMOL/L Blood Urea Nitrogen 14 7-18 MG/DL Creatinine 0.70 0.60-1.30 MG/DL Estimat Glomerular Filtration Rate 112 BUN/Creatinine Ratio 20 Glucose Level 107 H 70-105 MG/DL Calcium Level 9.1 8.5-10.1 MG/DL Corrected Calcium 9.2 8.5-10.1 MG/DL Magnesium Level 1.9 1.6-2.4 MG/DL Total Bilirubin 0.2 0.1-1.0 MG/DL Aspartate Amino Transf (AST/SGOT) 31 5-34 U/L Alanine Aminotransferase (ALT/SGPT) 24 0-55 U/L Alkaline Phosphatase 66 40-136 U/L Troponin I < 0.30 <0.30 NG/ML Pro-B-Type Natriuretic Peptide 73.2 <125.0 PG/ML Total Protein 7.5 6.4-8.2 GM/DL Albumin 3.9 3.2-4.5 GM/DL Serum Alcohol < 10 <10 MG/DL My Orders Orders - IVANNA LYNN MD Cbc With Automated Diff (08/22/22 05:49) Magnesium (08/22/22 05:49) Chest 1 View Ap/Pa Only (08/22/22 05:49) Ekg Tracing (08/22/22 05:49) Comprehensive Metabolic Panel (08/22/22 05:49) Monitor-Rhythm Ecg Trace Only (08/22/22 05:49) Aspirin Chewable Tablet (Baby Aspirin Ch (08/22/22 06:00) Ed Iv/Invasive Line Start (08/22/22 05:49) Troponin I Fs (08/22/22 05:49) Alcohol (08/22/22 05:50) Drug Screen Stat (Urine) (08/22/22 05:50) Ua Culture If Indicated (08/22/22 05:50) Probnp Fs (08/22/22 05:50) Famotidine Injection (Pepcid Injection) (08/22/22 06:15) Antacid Suspension (Mylanta Suspension (08/22/22 06:15) Famotidine Injection (Pepcid Injection) (08/22/22 06:08) Antacid Suspension (Mylanta Suspension (08/22/22 06:07) Medications Given in ED Current Medications Medications Dose Ordered Sig/Eddie Route Start Time Stop Time Status Last Admin Dose Admin Al Hydrox/Mg Hydrox/Simethicone 30 ml ONCE ONCE PO 08/22/22 06:15 08/22/22 06:24 DC 08/22/22 06:10 30 ML Aspirin 324 mg ONCE ONCE PO 08/22/22 06:00 08/22/22 06:01 DC 08/22/22 05:59 324 MG Famotidine 20 mg ONCE ONCE IVP 08/22/22 06:15 08/22/22 06:24 DC 08/22/22 06:11 20 MG Vital Signs/I&O 08/22/22 05:26 Temp 36.9 Pulse 76 Resp 18 B/P (MAP) 137/83 (101) Pulse Ox 99 O2 Delivery Room Air Blood Pressure Mean: 101 Progress Progress Note : Progress Note 1. ACS RULE OUT: GERD EXACERBATION - CXR:normal - CBC/ CMP normal - Troponin/ EKG: non-ischemic - UA/ UDS: pt was unable to give urine - ASA 324mg STAT - Pepcid 20mg iv/ Maalox STAT - Follow up with PCP within 3 to 5 days -The patient was seen in the ED, and treated appropriately to presentation at a specific point in time. Patient is informed that there is a possibility that disease and illness can evolve and change in acuity rapidly or slowly after patient is discharged from the ER. Precautionary advice given to the patient for immediate return to ER if symptoms worsen or do not resolve, and to seek emergency care sooner rather than later. Pt also advised on the importance of PCP follow up and compliance with management and follow up plan with PCP and/or specialist, as this is part of the management plan. Pt verbally expressed understanding. Initial ECG Impression Date: Aug 22, 2022 Initial ECG Impression Time: 05:16 Initial ECG Rate: 76 Initial ECG Rhythm: Normal Sinus Initial ECG Intervals: Normal Initial ECG Impression: Normal Diagnostic Imaging Diagonstic Imaging: Xray Plain Films/CT/US/NM/MRI: chest Departure Impression Primary Impression: Ruled out for myocardial infarction Additional Impression: GERD (gastroesophageal reflux disease) Qualified Codes: K21.9 - Gastro-esophageal reflux disease without esophagitis Disposition: HOME, SELF-CARE Condition: Stable Departure-Patient Inst. Referrals: CHUN BUTTERFIELD MD (PCP/Family) Primary Care Physician Patient Instructions: Heart Healthy Diet, Acid Reflux and Gastroesophageal Reflux Disease in Adults Add. Discharge Instructions: - Follow up with PCP within 3 to 5 days All discharge instructions reviewed with patient and/or family. Voiced understanding. IVANNA LYNN MD Aug 22, 2022 05:48
[2022-08-22 05:57] LABS: BASOPHILS # (AUTO) 0.1 10^3/uL (0.0-0.1); BASOPHILS % (AUTO) 1 % (0-10); EOSINOPHILS # (AUTO) 0.2 10^3/uL (0.0-0.3); EOSINOPHILS % (AUTO) 3 % (0-10); HEMATOCRIT 35 % (35-52); HEMOGLOBIN 10.8 g/dL (11.5-16.0); LYMPHOCYTES # (AUTO) 1.5 10^3/uL (1.0-4.0); LYMPHOCYTES % (AUTO) 20 % (12-44); MEAN CORPUSCULAR HEMOGLOBIN 25 pg (25-34); MEAN CORPUSCULAR HGB CONC 31 g/dL (32-36); MEAN CORPUSCULAR VOLUME 79 fL (80-99); MONOCYTES # (AUTO) 0.4 10^3/uL (0.0-1.0); MONOCYTES % (AUTO) 5 % (0-12); NEUTROPHILS # (AUTO) 5.4 10^3/uL (1.8-7.8); NEUTROPHILS % (AUTO) 71 % (42-75); PLATELET COUNT 215 10^3/uL (130-400); WHITE BLOOD COUNT 7.6 10^3/uL (4.3-11.0)
[2022-08-22] MEDS ORDERED: ASPIRIN 81 MG CHEW (CHILDREN'S ASA) PO ONE (06:00)
[2022-08-22] MEDS ORDERED: ANTACID SUSP 30 ML UDC (MYLANTA) ONE (06:07)
--- NOTE | 2022-08-22 06:07 | Diagnostic Imaging Report ---
INDICATION: Chest pain. Comparison is made with prior examination of 12/22/21. FINDINGS: The heart size, mediastinal configuration, and pulmonary vascularity are within normal limits. There is no pleural effusion, pneumothorax, or pneumonia. The osseous structures are unremarkable. IMPRESSION: No acute cardiopulmonary abnormality. Dictated by: Dictated on workstation # [id number]
[2022-08-22] MEDS ORDERED: FAMOTIDINE 20MG/2ML IV (PEPCID) ONE (06:08)
[2022-08-22] MEDS ORDERED: ANTACID SUSP 30 ML UDC (MYLANTA) PO ONE (06:15)
[2022-08-22] MEDS ORDERED: FAMOTIDINE 20MG/2ML IV (PEPCID) IVP ONE (06:15)
[2022-08-22 06:25] LABS: POTASSIUM 4.6 MMOL/L (3.6-5.0)
[2022-08-22 06:26] LABS: BILIRUBIN,TOTAL 0.2 MG/DL (0.1-1.0); CALCIUM 9.1 MG/DL (8.5-10.1); CREATININE SERUM 0.7 MG/DL (0.60-1.30); MAGNESIUM 1.9 MG/DL (1.6-2.4)
[2022-08-22 06:27] LABS: ALBUMIN 3.9 GM/DL (3.2-4.5); TOTAL PROTEIN 7.5 GM/DL (6.4-8.2)
[2022-08-22 07:06] VITALS: BP 137/83
== END 2022-08-22 07:07 | disposition home or self-care (01) ==
LOC: EDUNIT# 05:12 → ER FS 05:16
DX: K21.9 Gastro-esophageal reflux disease without esophagitis (principal); Z28.310 Unvaccinated for COVID-19; Z79.899 Other long term (current) drug therapy
CPT/HCPCS: 36415; 71045; 80053; 83735; 83880; 84484; 85025; 93005; 93041; 99284; G0480; 80320